=== PATIENT | female | born 1950 | race Caucasian/White ===

== ENCOUNTER → 2020-04-20 14:37 | Outpatient (CLI) | payer MEDICARE, SELFPAY ==
[2020-04-20 19:00] LABS: Coronavirus 19 IgG Antibody Negative (Negative); Coronavirus 19 IgM Antibody Negative (Negative)
[2020-04-21 08:04] LABS: Covid-19 Nasal PCR Sendout P&C NEGATIVE
== END ==
PROVIDERS: PCP Nurse Practitioner Family; Visit Provider Nurse Practitioner Family
DX: Z03.818 Encounter for observation for suspected exposure to other biological agents ruled out (principal)
CPT/HCPCS: 36415; 86328; U0004

== ENCOUNTER → 2022-07-05 07:00 | Outpatient (CLI) | payer SELFPAY ==
--- NOTE | 2022-07-05 07:14 | CT_ITS ---
FINAL REPORT CLINICAL HISTORY: SCREENING, chest pressure FINDINGS: CT CORONARY CALCIUM SCORE W/O TECHNIQUE: Thin-section axial images were obtained through the heart and coronary arteries per CT coronary calcium score protocol. This study was performed with techniques to keep radiation doses as low as reasonably achievable (ALARA). Individualized dose reduction techniques using automated exposure control or adjustment of mA and/or kV according to the patient's size were employed. FINDINGS: On the axial images, there is no calcification identified. This gives a coronary artery calcium score of 0.0 based on the Agatston scale. This coronary artery calcium score places the patient within the 0 percentile based on age and gender. The heart size is normal. There is no pleural or pericardial effusion. Limited evaluation of the lungs reveal mild atelectasis or scarring in the right lung base. IMPRESSION: 0 percentile. Reviewed, Interpreted and Dictated by Roberth Thomas III, MD Transcribed by Bartolome Shen Authenticated and . [facility]
== END ==
PROVIDERS: PCP Nurse Practitioner Family; Visit Provider Physician Assistant
DX: Z13.6 Encounter for screening for cardiovascular disorders (principal)
CPT/HCPCS: 75571

== ENCOUNTER → 2022-07-05 07:04 | Outpatient (CLI) | payer MEDICARE, SELFPAY ==
--- NOTE | 2022-07-05 07:05 | US_ITS ---
FINAL REPORT CLINICAL HISTORY: CLAUDICATION,HTN FINDINGS: ANKLE-BRACHIAL PRESSURE INDICES Pressure indices are as follows: RIGHT LOWER EXTREMITY: Ankle-brachial pressure index: 1.1 Comments: Normal LEFT LOWER EXTREMITY: Ankle-brachial pressure index: 1.1 Comments: Normal CONCLUSION: No evidence of significant obstructive peripheral vascular disease of the lower extremities Reviewed, Interpreted and Dictated by Roberth Thomas III, MD Transcribed by Sadie Del Rosario Authenticated and [facility]
--- NOTE | 2022-07-05 07:05 | CA_ITS ---
APPROVED REPORT EXAM: Comprehensive 2D, Doppler, and color-flow Echocardiogram Manager Cardiology: Gissel Sahu CRT Ht: 5 ft 4 in Wt: 176lbs BSA: 1.85 BP: 130/70 mmHg Indications: Chest Pain, Shortness of Breath, Atrial Fibrillation 2D Dimensions LVOT 1.53 cm (M/F) 1.5-2.5 LA Volume 26.30 mL LA Volume Index 13.80 mL/m2 (M/F) 16-34 M-Mode Dimensions RVDd 3.50 cm (0.9-2.6) LA Diam 2.58 cm (1.9-4.0) LVDd 4.18 cm (3.5-5.7) Ao Diam 3.37 cm (2.0-3.7) LVDs 2.50 cm (3.5-5.7) IVSd 1.18 cm (0.6-1.1) PWd 0.61 cm (0.6-1.1) EF (Teich) 71.30% FS 40.20% EDV (Teich) 77.70 mL TAPSE 2.33 (<1.7) ESV (Teich) 22.30 mL LV Diastology E Decel Time 153.00 (160-240 msec) E/A Ratio 0.87 MED E' 8.90 (< 7 cm/sec) MED A' 9.90 cm/s E'/MED E' Ratio 9.02 (>14) LAT E' 12.30 (<10 cm/sec) LAT A' 14.60 cm/s E/LAT E' Ratio 6.53 (>14) Aortic Valve AI PHT 532.00 ms AO Peak GR. 6.70 mmHg Mitral Valve MV A Velocity 92.00 (40-130 cm/s) E/A Ratio 0.87 MV Decel. Time 153.00 (160-240 ms) Pulmonary Valve PV Peak Velocity 113.00 (50-150 cm/s) Tricuspid Valve TR P. Velocity 230.00 cm/s RAP Estimate 10.00 mmHg RVSP 31.20 mmHg Left Ventricle Left atrium is normal size left ventricle is normal size, estimated ejection fraction 55% with no regional wall motion abnormality, diastolic parameters are within normal range. Right Ventricle Right atrium and right ventricle are normal size and contractility. Aortic Valve Aortic valve is minimally thickened and fibrosed there is no aortic stenosis, there is mild aortic insufficiency. Mitral Valve Mitral valve is grossly normal, there is trace mitral regurgitation. Tricuspid Valve Tricuspid grossly normal, there is trace tricuspid regurgitation, tricuspid regurgitation jet velocity is inadequate for calculation of the right ventricular systolic pressure. Pulmonic Valve Pulmonic valve is poorly visualized. Great Vessels Aortic root is normal size. Inferior vena cava normal size with normal inspiratory collapse. Pericardium No significant pericardial effusion noted. Conclusion 1. Normal left ventricular size preserved left ventricular systolic function, estimated ejection fraction 55% with no regional wall motion abnormality, diastolic parameters of within normal range. 2. Mild aortic, trace mitral and tricuspid regurgitation. 3. No significant pericardial effusion noted. 4. Inferior vena cava normal size with normal inspiratory collapse. Electronically signed by : Kyrie Jesus MD 07/05/2022 19:37:00
--- NOTE | 2022-07-05 07:05 | CA_ITS ---
APPROVED REPORT Exam: Exercise Treadmill Technologist: Ashley Harris Ht: 5 ft 4 in Wt: 176 lbs BSA: 1.85 m2 HR: 62 bpm BP: 165/72 mmHg Indications: Shortness of Breath, Chest pain Medical History Medications: Clonidine,,,,, Aspirin,,,,, Escitalopram,,,,, Montelukast,,,,, MeLOXICAM,,,,, Esomeprazole,,,,, FluTICASONE,,,,, Vitamin D2,,,,, Nitroglycerin,,,,, Stress Test Details Test: Ronny HR Resting HR: 66 bpm Max Heart Rate (APMHR): 148.363785 bpm Max HR Achieved: 151 bpm Target HR (85% APMHR): 125.078036 bpm % of APMHR: 102.03 Recovery HR: 68 bpm BP Resting BP: 165.0/72.0 mmHg Max BP: 198.0/80.0 mmHg Recovery BP: 147.0/76.0 mmHg ECG Resting ECG: Normal sinus rhythm, PAC Clinical Exercise duration: 05:29 min Highest Stage Achieved: Exercise capacity: 7.0 METs Stress ECG Conclusion Patient walked 5:29 into stage II Ronny Protocol. Test stopped due to shortness of air, fatigue. Symptoms: No chest pain. Arrhythmias/Ectopy: Ocassional PAC, rare PVC. ST-T Changes: Approximately 1.[address] depression inferiorly and laterally. Conclusion: EKG changes positive for ischemia without chest pain. Myoview images reported separately. Test Summary REST . . . . . . . Sitting REST . . . . . . . Standing REST 03:55 0.0 0.0 66 . 165/ 72 . . Stage 1 01:00 10.0 1.7 103 . . . . Stage 1 02:00 10.0 1.7 120 . . . . Stage 1 03:00 10.0 1.7 121 . 198/ 80 . . Stage 2 01:00 12.0 2.5 137 . . . . Stage 2 . . . . . . . Myoview Injected Stage 2 02:00 12.0 2.5 144 . . . . Stage 2 02:29 12.0 2.5 149 . . . Stop exercise at 05:29 RECOVERY 01:00 0.0 0.0 112 . . . . RECOVERY 02:00 0.0 0.0 82 . . . . RECOVERY 03:00 0.0 0.0 80 . 180/ 88 . . RECOVERY 04:00 0.0 0.0 72 . 173/ 82 . . RECOVERY 05:00 0.0 0.0 68 . 173/ 82 . . RECOVERY 06:00 0.0 0.0 69 . 147/ 76 . . Electronically signed by : Kyrie Jesus MD 07/05/2022 18:56:31
--- NOTE | 2022-07-05 07:05 | NM_ITS ---
APPROVED REPORT Exam: Nuclear Stress Test Indication: FM HX, C.P., SOB Patient Location: Outpatient Stress Tech: Ashley Harris DC Tech:Nelia AmayaSAMANTHA RT (R)(N)(M) Ht: 5 ft 2 in Wt: 173 lbs Bra Size: C HR: 62 bpm BP: 165/72 mmHg BSA: 1.80 m2 TID: 1.08 BMI: 31.6 History: FM ELIZA, C.P., SOB Procedure: Patient exercised on Ronny protocol 5:30 minutes and sec, resting heart rate 62 bpm, resting blood pressure 165/72 mmHg, with exercise maximum heart rate achived was 149 bpm which is 100 % of the maximum predicted heart rate and blood pressure was 198/80 mmHg. Test was stopped due to SOB. Patient denied any complaint of chest pain. Patient has Adequate exercise capacity, achieved 7.0 METs of workload on treadmill, the blood pressure response to exercise was Adequate. Electrocardiogram Resting electrocardiogram showed sinus rhythm with exercise there is [address] segment depression noted from the baseline EKG. The EKG portion of the exercise Myoview is positive for ischemia. Cardiac Stress and Resting SPECT Images: Cardiac Stress and Resting SPECT images were obtained using technetium 99m Myoview 30.1 mCi stress and 10.59 mCi at rest. Gated SPECT analysis of segmental wall motion and calculation of the ejection fraction also done. Prone images were also obtained. Cardiac stress and rest respectively show uniform myocardial activity without segmental perfusion abnormality, computer derived ejection fraction is 61% with no regional wall motion abnormality, right ventricle is normal size and contractility. Conclusion: 1. The EKG portion of the exercise Myoview is positive for ischemia, patient has adequate exercise capacity achieved 7 METS of workload on treadmill, the blood pressure response to exercise was adequate, there was no exercise-induced chest discomfort. 2. No scintigraphic evidence of reversible ischemia seen, computer derived ejection fraction is 61% with no regional wall motion abnormality, right ventricle is normal size and contractility. Electronically signed by : Kyrie Jesus MD 07/05/2022 19:11:08
== END ==
PROVIDERS: PCP Nurse Practitioner Family; Visit Provider Physician Assistant
DX: I48.0 Paroxysmal atrial fibrillation (principal); R06.00 Dyspnea, unspecified; R07.9 Chest pain, unspecified; I73.9 Peripheral vascular disease, unspecified
CPT/HCPCS: 78452; 93017; 93306; 93923; A9502

== ENCOUNTER 2023-07-05 09:46 | Outpatient (POV) | payer MEDICARE, SELFPAY ==
[2023-07-05 10:52] VITALS: BP 149/82; PULSE 68; RESP 18; O2SAT 97; BMI 28.3
--- NOTE | 2023-07-05 11:31 | EXP.PAIN.OV ---
HPI Data of Consult Patient: new to practice Consult date: 07/05/23 Requesting Physician: Aisha Gupta APRN Primary Care Provider: Kerri Gonzalez APRN Consult Narrative Reason for consult: Low back pain, bilateral hip pain, bilateral knee pain History of present illness: Ms. Joshi is a 73 year old female who presents today as a new patient. She is a referral from [facility]. Today she rates her pain an 8 out of 10. Patient states her pain is all in her low back and bilateral hips as well as bilateral knee pain. She does describe this as a aching, throbbing sensation that is worse with certain positions such as prolonged sitting or standing. Patient states that it is aggravated when going up stairs or using her weedeater or lawnmower. Patient does state this has been going on for years on again off again. She states that the pain does interfere with her ability perform activities of daily living such as cooking and cleaning. Patient does also state her knee pain is chronic and that she does get intra-articular knee injections and recently did do the gel injections. Patient states she has tried [id number] Tylenol and ibuprofen along with heat and ice and topicals with minimal relief. She states that she goes to the chiropractor on a regular basis that does help some however continues to have the pain. Patient denies any previous trauma or injury that initially led to her symptoms. She denies any surgery or injection history in the past other than her knees. Patient is interested in any help we may be able to provide. Patient does use meloxicam. She is not on any scheduled medications. Her Octavio has been reviewed and is appropriate. CC: Aisha Gupta APRN [facility] Disclaimer: The information contained in this section may have been updated after the patient was seen, as this information can be updated by other users. Medical History (Updated 07/05/23 @ 11:35 by Aisha Gupta APRN) Claudication Dyspnea Chest pain PAF (paroxysmal atrial fibrillation) Family History Mother Diabetes CHF (congestive heart failure) Father Cancer Social History (Updated 07/05/23 @ 10:54 by Flakita May RN) Smoking Status: Never smoker alcohol intake: never substance use type: denies use current occupational status: retired Travel in the last 8 weeks: None Review of Systems Review of Systems Review of systems:: pertinent systems reviewed and negative unless documented below Review of systems (narrative): Review of Systems: General: No recent weight changes, no fever, no sleep disturbances Respiratory: No cough, no shortness of air, no recurring pulmonary infections Cardiovascular/peripheral vascular: No chest pain, no palpitations, no edema, no shortness of breath Gastrointestinal: No new onset incontinence, normal bowel movements reported Genitourinary: No new onset incontinence Musculoskeletal: Low back pain, bilateral hip pain, bilateral knee pain Psychiatric: [Normal mood/affect] Neurological: [Denies weakness in extremities], [denies balance issues] Meds Home Medications and Allergies Home Medications Medication Instructions Recorded Confirmed Type clonidine HCl 0.1 mg tablet 0.1 mg PO BID 06/23/22 07/05/23 History ergocalciferol (vitamin D2) 1,250 1,250 mcg PO WEEKLY 06/23/22 07/05/23 History mcg (50,000 unit) capsule escitalopram oxalate 20 mg tablet 20 mg PO DAILY 06/23/22 07/05/23 History esomeprazole magnesium 40 mg 40 mg PO DAILY 06/23/22 07/05/23 History capsule,delayed release meloxicam 15 mg tablet 15 mg PO DAILY 06/23/22 07/05/23 History nitroglycerin 0.4 mg sublingual 0.4 mg sublingual Q5-15M PRN Chest 06/23/22 07/05/23 History tablet Pain New Prescriptions to Start Prescriptions: Allergies Allergy/AdvReac Type Severity Reaction Status Date / Time codeine AdvReac Verified 06/23/22 09:34 iodine AdvReac Verified 06/23/22 09:34 Objective Vital signs: Pulse Resp BP Pulse Ox O2 Del Method 68 18 149/82 H 97 Room Air 07/05/23 10:52 07/05/23 10:52 07/05/23 10:52 07/05/23 10:52 07/05/23 10:52 Narrative: Physical Exam: General: Alert and oriented x3, no acute distress, pleasant and cooperative Lungs: Respirations even and unlabored, symmetrical chest expansion Eyes: PERRL Musculoskeletal: Flexion and extension of lumbar [spine] somewhat guarded secondary to pain, [antalgic gait noted] point tenderness along bilateral SIs with positive bilateral Sherman's, Jah's, Gaenslen's, compression and distraction exam; point tenderness along right greater trochanteric bursitis with mild left tenderness Neurological: Speech clear, no gross sensory deficit Assessment and Plan *Assessment and plan (1) Bilateral sacroiliitis: Status: Acute Category: Medical Code(s): M46.1 - Sacroiliitis, not elsewhere classified (2) Greater trochanteric bursitis: Status: Acute Qualifiers: Laterality: right Qualified Code(s): M70.61 - Trochanteric bursitis, right hip Category: Medical Code(s): M70.60 - Trochanteric bursitis, unspecified hip (3) Low back pain: Status: Acute Qualifiers: Chronicity: chronic Back pain laterality: bilateral Sciatica presence: with sciatica Sciatica laterality: bilateral sciatica Qualified Code(s): M54.42 - Lumbago with sciatica, left side; M54.41 - Lumbago with sciatica, right side; G89.29 - Other chronic pain Category: Medical Code(s): M54.50 - Low back pain, unspecified (4) Bilateral knee pain: Status: Acute Qualifiers: Chronicity: chronic Qualified Code(s): M25.561 - Pain in right knee; M25.562 - Pain in left knee; G89.29 - Other chronic pain Category: Medical Code(s): M25.561 - Pain in right knee; M25.562 - Pain in left knee Plan Patient is experiencing worsening pain in her low back and bilateral hips with limited range of motion of her lumbar spine and point tenderness of her bilateral SIs. Patient had a positive Sherman's, Jah's, Gaenslen's, compression and distraction exam as well as tenderness along her greater trochanteric bursa's. I have discussed with patient in future she may benefit from the bursa injections however due to her worse pain in and around her SI joints that she would benefit from the bilateral SI injections. Risk and benefits were discussed with the patient and she would like to proceed forward with this plan of care. I have also discussed at length with the patient regarding her knee pain and we will discuss this at future visits. Patient will be scheduled for bilateral SI injections under fluoroscopy. Patient has tried and failed conservative treatment such as oral medications, heat and ice, topicals, chiropractor therapy and at home stretching exercise for longer than 6 weeks. Patient has been instructed to contact the clinic with any concerns before the next appointment. Dr. Izquierdo has reviewed this note and agrees with this plan of care. This note was dictated using voice recognition software and make contain errors or omissions.
== END 2023-07-05 23:59 ==
LOC: SC.PAIN 09:47
PROVIDERS: PCP Nurse Practitioner Family; Visit Provider Nurse Practitioner Family
DX: M46.1 Sacroiliitis, not elsewhere classified (principal); M70.61 Trochanteric bursitis, right hip; M54.42 Lumbago with sciatica, left side; M54.41 Lumbago with sciatica, right side; G89.29 Other chronic pain; M25.561 Pain in right knee; M25.562 Pain in left knee
CPT/HCPCS: 99202; G0463

== ENCOUNTER 2023-07-28 08:46 | Day surgery (SDC) | payer MEDICARE, SELFPAY ==
[2023-07-28 09:00] VITALS: BP 146/71; PULSE 73; RESP 16; TEMP 36.2; O2SAT 98; BMI 29.0
[2023-07-28 09:07] VITALS: BP 133/65; PULSE 76; RESP 18; O2SAT 98
[2023-07-28] MEDS: BUPIVACAINE 0.25% 10ML INJ 25 MG IJ (09:08)
[2023-07-28] MEDS: LIDOCAINE 1% 5ML PF VIAL 5 ML (09:08)
[2023-07-28] MEDS: methylPREDNISolone ACETATE 80MG/ML VIAL 80 MG (09:08)
[2023-07-28 09:10] VITALS: BP 133/65; PULSE 71; RESP 18; O2SAT 98
[2023-07-28 09:14] VITALS: BP 134/68; PULSE 67; RESP 16; O2SAT 98
--- NOTE | 2023-07-28 09:15 | P.PCN_ITS ---
Procedure Date: 07/28/23 Time: 09:10 Anesthesiologist:: Mick Hurst CRNA Complications:: None Pre-procedure Diagnosis:: Bilateral sacroiliitis Post-procedure Diagnosis:: Same Indications for Procedure:: Patient is a very pleasant 73-year-old female comes our clinic today for bilateral sacroiliac joint injection. Patient reports low lumbar back pain bilaterally off the midline. Patient also reports difficulty transitioning from sitting to standing. Difficulty with ambulation due to the low lumbar back pain. She rates her pain 8/10. Procedure Details:: Procedure: Bilateral sacroiliac joint injections under fluoroscopy Informed consent was obtained and the risks and benefits of the procedure were explained to the patient.~ The patient was taken to the procedure room and noninvasive monitors were placed including a noninvasive blood pressure cuff and pulse oximeter.~ The patient was placed prone on the procedure table. Both hips were cleansed using Betadine as a cleansing solution. C-arm fluoroscopy was used to view the right sacroiliac joint.~ The skin and subcutaneous tissues were anesthetized using lidocaine 1.5% and a 25-gauge needle.~ After this, a 22-gauge spinal needle was inserted under fluoroscopic guidance into the inferior aspect of the right sacroiliac joint.~ Omnipaque dye was injected and good spread was seen throughout the joint.~ After this, approximately 5 mL of bupivacaine, 0.25% and Depo-Medrol, 40 mg was incrementally injected into the right sacroiliac joint. We then moved to the left sacroiliac joint.~ The skin and subcutaneous tissues were anesthetized using lidocaine 1.5% and a 25-gauge needle.~ After this, a 22- gauge spinal needle was inserted under fluoroscopic guidance into the inferior aspect of the left sacroiliac joint.~ Omnipaque dye was injected and good spread was seen throughout the joint. After this, approximately 5 mL of bupivacaine, 0.25% and Depo-Medrol, 40 mg was incrementally injected into the left sacroiliac joint.~ The patient tolerated the procedure well with no complications. The patient was observed in the Pain Clinic and then was discharged home neurologically intact. Plan and Disposition:: Patient was discharged without incident.
== END 2023-07-28 09:14 | disposition home or self-care (01) ==
PROVIDERS: PCP Nurse Practitioner Family; Visit Provider Nurse Anesthetist, Certified Registered
DX: M46.1 Sacroiliitis, not elsewhere classified (principal)
CPT/HCPCS: 27096; 77002; G0260; J1010

== ENCOUNTER 2023-08-09 11:04 | Outpatient (POV) | payer MEDICARE, SELFPAY ==
[2023-08-09 11:17] VITALS: BP 125/76; PULSE 71; RESP 18; O2SAT 94; BMI 29.0
--- NOTE | 2023-08-09 11:38 | A.OFFVIS_ITS ---
[facility] Pain Management SOAP Note Subjective:: Patient is a pleasant 73-year-old female who presents today for follow-up of bilateral SI injections on 07/28/2023. Today she rates her pain a 2 out of 10 in her low back and a 5 out of 10 along her right hip. Patient denies any new trauma or injury. Patient does state that she had this injection on a Monday and broke to use [place] on Monday and proceeded to walk all day Monday. Patient states that she did at that point have 100% relief for about a week. Patient states after that that she did do a lot more work around the garden including riding on a 4 ramirez and that she is still getting about 80% relief. She states that this has been significant for helping her sleep better and overall better pain improvement. She does state that she is still having some pain along her right hip and is tender to touch. At her last visit we did discuss with her that she may benefit from bursa injections. Patient does state today that she would like to try to proceed forward with this. Her Octavio has been reviewed and is appropriate. Review of Systems: General: No recent weight changes, no fever, no sleep disturbances Respiratory: No cough, no shortness of air, no recurring pulmonary infections Cardiovascular/peripheral vascular: No chest pain, no palpitations, no edema, no shortness of breath Gastrointestinal: No new onset incontinence, normal bowel movements reported Genitourinary: No new onset incontinence Musculoskeletal: Right hip pain Psychiatric: [Normal mood/affect] Neurological: [Denies weakness in extremities], [denies balance issues] Objective:: Physical Exam: General: Alert and oriented x3, no acute distress, pleasant and cooperative Lungs: Respirations even and unlabored, symmetrical chest expansion Eyes: PERRL Musculoskeletal: Flexion and extension of right hip somewhat guarded secondary to pain, [antalgic gait noted] point tenderness along right greater trochanteric bursa Neurological: Speech clear, no gross sensory deficit Assessment:: Low back pain, bilateral sacroiliitis, greater trochanteric bursitis right- sided, right hip pain Plan:: Patient has had significant improvement following her SI injections and does not require any additional injection at this location. Patient did have point tenderness along her right greater trochanteric bursa along with limited range of motion of her hip today. I have discussed the risk and benefits of the bursa injection and she would like to proceed forward with this plan of care. Patient has tried and failed conservative therapies. We will schedule the patient for a right bursa injection under fluoroscopy. Patient has been instructed to contact the clinic with any concerns before the next appointment. Dr. Izquierdo has reviewed this note and agrees with this plan of care. This note was dictated using voice recognition software and make contain errors or omissions. [facility] Disclaimer: The information contained in this section may have been updated after the patient was seen, as this information can be updated by other users. Medical History Claudication Dyspnea Chest pain PAF (paroxysmal atrial fibrillation) Family History Mother Diabetes CHF (congestive heart failure) Father Cancer Social History Smoking Status: Never smoker alcohol intake: never substance use type: denies use current occupational status: employed Travel in the last 8 weeks: None
== END 2023-08-09 23:59 ==
LOC: SC.PAIN 11:05
PROVIDERS: PCP Nurse Practitioner Family; Visit Provider Nurse Practitioner Family
DX: M54.50 Low back pain, unspecified (principal); M46.1 Sacroiliitis, not elsewhere classified; M70.61 Trochanteric bursitis, right hip; M25.551 Pain in right hip
CPT/HCPCS: 99212; G0463

== ENCOUNTER 2023-08-29 09:58 | Day surgery (SDC) | payer MEDICARE, SELFPAY ==
[2023-08-29 10:22] VITALS: BP 135/69; PULSE 67; RESP 16; TEMP 36.3; O2SAT 97; BMI 28.3
[2023-08-29] MEDS: LIDOCAINE 1% 5ML PF VIAL 5 ML (10:59)
[2023-08-29] MEDS: methylPREDNISolone ACETATE 80MG/ML VIAL 80 MG (10:59)
[2023-08-29 11:00] VITALS: BP 130/57; PULSE 61; RESP 18; O2SAT 98
[2023-08-29] MEDS: BUPIVACAINE 0.25% 10ML INJ 25 MG IJ (11:00)
[2023-08-29 11:02] VITALS: BP 130/57; PULSE 61; RESP 18; O2SAT 97
--- NOTE | 2023-08-29 11:04 | P.PCN_ITS ---
Procedure Date: 08/29/23 Time: 11:00 Anesthesiologist:: Mick Hurst CRNA Complications:: None Pre-procedure Diagnosis:: Right trochanteric bursitis. Post-procedure Diagnosis:: Same. Indications for Procedure:: Patient is a pleasant 73-year-old female comes our clinic today for right great er trochanteric bursa injection. She reports extreme point tenderness over the right lateral hip. She is able to pinpoint with her finger the area of pain. Under fluoroscopy this proves to be the trochanteric bursa. She rates her pain 8/10. Procedure Details:: Procedure: Right trochanteric bursa injection under fluoroscopy We then moved to the right trochanteric bursa.~ C-arm fluoroscopy was used to view the left greater trochanter.~ The skin and subcutaneous tissues overlying the right greater trochanter were anesthetized using lidocaine, 1.5% and a 25- gauge needle.~ After this, a 22-gauge spinal needle was inserted and advanced until it contacted the right greater trochanter.~ Dye was injected and good spread was seen throughout the right trochanteric bursa. After this, approximately 5 mL of bupivacaine, 0.25% and Depo-Medrol, 40 mg was incrementally injected into the right right trochanteric bursa.~ The patient tolerated the procedure well with no complications. Plan and Disposition:: Patient was discharged without incident.
[2023-08-29 11:06] VITALS: BP 130/70; PULSE 56; RESP 18; O2SAT 98
== END 2023-08-29 11:06 | disposition home or self-care (01) ==
PROVIDERS: PCP Nurse Practitioner Family; Visit Provider Nurse Anesthetist, Certified Registered
DX: M70.71 Other bursitis of hip, right hip (principal)
CPT/HCPCS: 20610; 77002; J1010

== ENCOUNTER 2023-09-13 11:26 | Outpatient (POV) | payer MEDICARE, SELFPAY ==
--- NOTE | 2023-09-13 11:29 | EXP.PAIN.SOA ---
[facility] Pain Management SOAP Note Subjective:: Patient is a pleasant 73-year-old female who presents today for follow-up of right bursa injection on 08/29/2023. Today she rates her pain a 9 out of 10. Patient denies any new trauma or injury. She does state that she has had 100% improvement following her bursa injection. She states that pain is completely resolved and she feels much better. Today she states a lot of her pain is all related to her entire right lower extremity. She describes this as a burning, stinging sensation and almost like [id number]. She states that initially it started more in her foot that is progressively gone up her entire extremity. She states that she often feels like she has a lot of weakness in this extremity and frequently she will stumble. She states that the leg will just randomly give out causing her to fall. Patient is interested in any help we may be able to provide with this. Patient does state that she even went to her chiropractor and had an adjustment to see if it would help with the overall right leg symptoms however it made no change. Patient is scheduled for an MRI later this afternoon at 230. Her Octavio has been reviewed and is appropriate. Review of Systems: General: No recent weight changes, no fever, no sleep disturbances Respiratory: No cough, no shortness of air, no recurring pulmonary infections Cardiovascular/peripheral vascular: No chest pain, no palpitations, no edema, no shortness of breath Gastrointestinal: No new onset incontinence, normal bowel movements reported Genitourinary: No new onset incontinence Musculoskeletal: Low back pain, right leg pain Psychiatric: [Normal mood/affect] Neurological: [Denies weakness in extremities], [denies balance issues] Objective:: Physical Exam: General: Alert and oriented x3, no acute distress, pleasant and cooperative Lungs: Respirations even and unlabored, symmetrical chest expansion Eyes: PERRL Musculoskeletal: Flexion and extension of lumbar [spine] somewhat guarded secondary to pain, [antalgic gait noted] positive right leg raise with decreased sensation to light touch and decreased reflexes Neurological: Speech clear, no gross sensory deficit Assessment:: Low back pain, greater trochanteric bursitis, bilateral sacroiliitis, bilateral knee pain, right leg radiculopathy symptoms, numbness and tingling Plan:: Patient is experiencing worsening pain throughout her right leg with burning and tingling. Patient did have limited range of motion of her lumbar spine with decreased sensation and decreased reflexes along with a positive right leg raise. I discussed with the patient that she may benefit from a right transforaminal epidural steroid injection. Risk and benefits were discussed with patient and she would like to proceed forward with this plan of care. Patient is not on any blood thinners. Patient has tried and failed conservative therapy including continued at home exercising and stretching between injections as well as chiropractor therapy with minimal relief. We will schedule the patient for a right transforaminal epidural steroid injection L4-L5 and L5-S1 under fluoroscopy. Patient has been instructed to contact the clinic with any concerns before the next appointment. Dr. Izquierdo has reviewed this note and agrees with this plan of care. This note was dictated using voice recognition software and make contain errors or omissions. [facility] Disclaimer: The information contained in this section may have been updated after the patient was seen, as this information can be updated by other users. Medical History Claudication Dyspnea Chest pain PAF (paroxysmal atrial fibrillation) Family History Mother Diabetes CHF (congestive heart failure) Father Cancer Social History Smoking Status: Never smoker alcohol intake: never substance use type: denies use current occupational status: other Travel in the last 8 weeks: None
[2023-09-13 11:42] VITALS: BP 123/65; PULSE 74; RESP 16; O2SAT 99; BMI 28.3
== END 2023-09-13 23:59 | disposition home or self-care (01) ==
LOC: SC.PAIN 11:27
PROVIDERS: PCP Nurse Practitioner Family; Visit Provider Nurse Practitioner Family
DX: M54.50 Low back pain, unspecified (principal); M46.1 Sacroiliitis, not elsewhere classified; M25.561 Pain in right knee; M25.562 Pain in left knee; R20.0 Anesthesia of skin
CPT/HCPCS: 99212; G0463

== ENCOUNTER 2023-09-13 14:26 | Outpatient (CLI) | payer MEDICARE, SELFPAY ==
--- NOTE | 2023-09-13 14:30 | MR_ITS ---
FINAL REPORT CLINICAL HISTORY: CHRONIC LOW BACK PAIN right side numbness/tingling x 1 month FINDINGS: Multiplanar MR imaging of the lumbar spine was performed without contrast. On the sagittal T2-weighted images, there is abnormal decreased signal throughout the lumbar discs. There is moderate loss of height from L1-2 through L4-5. The vertebrae are of normal height. The vertebral alignment is normal. L1-2: Mild diffuse disc bulge is present. There is moderate bilateral facet hypertrophy with moderate bilateral neural foraminal narrowing. L2-3: Mild diffuse disc bulge and endplate hypertrophy are present. There is moderate bilateral neural foraminal narrowing. L3-4: Moderate diffuse disc bulge and endplate hypertrophy are present. There is moderate to high-grade bilateral neural foraminal narrowing, left greater than right. There is bilateral facet hypertrophy. L4-5: Moderate diffuse disc bulge is present. There is a right paracentral disc protrusion with mild compromise of the right lateral recess. There is moderate to high-grade left neural foraminal narrowing. L5-S1: Moderate diffuse disc bulge is present. There is endplate hypertrophy, eccentric to the left with moderate to high-grade left neural foraminal narrowing. IMPRESSION: Right paracentral disc protrusion at L4-5 with mild compromise of the right lateral recess. Neural foraminal compromise, most evident on the left at L4-5 and L5-S1. Reviewed, Interpreted and Dictated by Hua Tran MD Transcribed by Mariza Tsang Authenticated and [facility]
== END 2023-09-13 23:59 | disposition home or self-care (01) ==
LOC: RAD 14:27
PROVIDERS: PCP Nurse Practitioner Family; Visit Provider Nurse Practitioner Family
DX: M54.50 Low back pain, unspecified (principal); M70.60 Trochanteric bursitis, unspecified hip; M46.1 Sacroiliitis, not elsewhere classified; M25.561 Pain in right knee; M25.562 Pain in left knee; R20.0 Anesthesia of skin
CPT/HCPCS: 72148; 99212; G0463

== ENCOUNTER 2023-10-03 11:24 | Day surgery (SDC) | payer MEDICARE, SELFPAY ==
[2023-10-03 11:37] VITALS: BP 113/64; PULSE 70; RESP 16; O2SAT 96; BMI 28.3
[2023-10-03 11:47] VITALS: BP 131/62; PULSE 64; RESP 18; O2SAT 98
[2023-10-03] MEDS: LIDOCAINE 1% 5ML PF VIAL 5 ML (11:47)
[2023-10-03 11:48] VITALS: BP 131/62; PULSE 67; RESP 18; O2SAT 99
--- NOTE | 2023-10-03 11:56 | P.PCN_ITS ---
Procedure Date: 10/03/23 Time: 11:30 Anesthesiologist:: Mick Hurst CRNA Complications:: None Pre-procedure Diagnosis:: Degenerative disc lumbar spine multilevel. Lumbar radiculopathy. Lumbar disc bulge multilevel L3-4, L4-5, L5-S1. Post-procedure Diagnosis:: Same. Indications for Procedure:: Patient is a pleasant 73-year-old female comes our clinic today for right L4-5, L5-S1 transforaminal epidural steroid injection. Patient reports 6 weeks of significant improvement terms of her overall low lumbar back symptoms as well as bilateral hip and leg radicular symptoms with previous intralaminar epidural steroid injection. Today she reports specific right low lumbar back pain as w ell as right hip and leg radicular symptoms to the foot. She rates her pain 10/10. She describes the pain as constant, dull, sharp, stabbing. Procedure Details:: Details of the procedure explained to the patient. The patient was taken to procedure room placed in the prone position. The area over the lumbar spine was cleansed using chlorhexidine as a cleansing solution. Using fluoroscopy guidance markers were placed over the right border of the L4-5 and L5-S1 vertebral body. At each marker the skin and subcutaneous tissue was anesthetized using 1% lidocaine and a 25-gauge needle. At this time using fluoroscopy guidance 3 and half inch 22-gauge spinal needle was used to access the upper one third of the right L4-5 and L5-S1 foramen. Using fluoroscopy guidance in the lateral position needle position was confirmed using 0.5 mL of contrast dye. Good spread was noted in the epidural space at each level. After negative aspiration 2 mL of 1% lidocaine and 40 mg of Depo-Medrol was injected at each level. Patient tolerated procedure without difficulty. There are no complications. Plan and Disposition:: Patient was discharged without incident.
[2023-10-03 12:02] VITALS: BP 110/59; PULSE 58; RESP 18; O2SAT 99
== END 2023-10-03 12:03 | disposition home or self-care (01) ==
PROVIDERS: PCP Nurse Practitioner Family; Visit Provider Nurse Anesthetist, Certified Registered
DX: M51.16 Intervertebral disc disorders with radiculopathy, lumbar region (principal); M51.26 Other intervertebral disc displacement, lumbar region
CPT/HCPCS: 64483; 64484; J1010

== ENCOUNTER 2023-10-19 11:22 | Outpatient (POV) | payer MEDICARE, SELFPAY ==
[2023-10-19 11:29] VITALS: BP 127/61; PULSE 64; RESP 16; O2SAT 97; BMI 28.3
--- NOTE | 2023-10-19 11:44 | EXP.PAIN.SOA ---
[facility] Disclaimer: The information contained in this section may have been updated after the patient was seen, as this information can be updated by other users. Medical History (Updated 10/19/23 @ 11:47 by Aisha Gupta APRN) Claudication Dyspnea Chest pain PAF (paroxysmal atrial fibrillation) Family History Mother Diabetes CHF (congestive heart failure) Father Cancer Social History Smoking Status: Never smoker alcohol intake: never substance use type: denies use current occupational status: other Travel in the last 8 weeks: None PM Subjective & Objective Subjective Subjective:: Patient is a pleasant 73-year-old female who presents today for follow-up of right transforaminal epidural steroid injection L4-L5 and L5-S1 under fluoroscopy on 10/03/2023. Today she rates her pain a 7 out of 10. Patient states that she has not had any new injury or trauma. She does state that she had significant relief in her back from this injection of at least 50% however it really did not seem to do much for her right leg symptoms. She states initially the numbing medication did seem like it helped some however it never got any better and she is continuing to have the same issues. Patient does state that she is starting to see a new chiropractor who thinks that he can do some additional options that may make a difference. She states that she is scheduled for the first follow-up with him this coming Monday. Patient denies continue to use her Voltaren for her knee and takes Mobic daily for arthritis. Patient does states she will occasionally use [id number] Aleve that it does seem to help with the drawing up sensations with the back of her leg. She also states that she has gotten roll-on nerve V cream and it seems to help some. Patient does have a consult with neurosurgery coming up in October on the . Her Octavio has been reviewed and is appropriate. Review of Systems: General: No recent weight changes, no fever, no sleep disturbances Respiratory: No cough, no shortness of air, no recurring pulmonary infections Cardiovascular/peripheral vascular: No chest pain, no palpitations, no edema, no shortness of breath Gastrointestinal: No new onset incontinence, normal bowel movements reported Genitourinary: No new onset incontinence Musculoskeletal: Right leg numbness tingling Psychiatric: [Normal mood/affect] Neurological: [Denies weakness in extremities], [denies balance issues] Pain at rest (0-10 scale): 7 Objective Objective:: Physical Exam: General: Alert and oriented x3, no acute distress, pleasant and cooperative Lungs: Respirations even and unlabored, symmetrical chest expansion Eyes: PERRL Musculoskeletal: Flexion and extension of lumbar [spine] somewhat guarded secondary to pain, [antalgic gait noted] Neurological: Speech clear, no gross sensory deficit Has patient had previous pain injection?: Yes Percent improvement in pain since last injection: 50 Conservative treatment options previously tried: NSAIDS Length of treatment: More than 6 weeks, Home exercise plan Length of treatment: More than 6 weeks, Chiropractor Length of treatment: 1 week and Prescription medications Length of treatment: More than 6 weeks Meds Home Medications and Allergies Home Medications Medication Instructions Recorded Confirmed Type clonidine HCl 0.1 mg tablet 0.1 mg PO BID 06/23/22 10/19/23 History ergocalciferol (vitamin D2) 1,250 1,250 mcg PO WEEKLY 06/23/22 10/19/23 History mcg (50,000 unit) capsule escitalopram oxalate 20 mg tablet 20 mg PO DAILY 06/23/22 10/19/23 History esomeprazole magnesium 40 mg 40 mg PO DAILY 06/23/22 10/19/23 History capsule,delayed release meloxicam 15 mg tablet 15 mg PO DAILY 06/23/22 10/19/23 History nitroglycerin 0.4 mg sublingual 0.4 mg sublingual Q5-15M PRN Chest 06/23/22 10/19/23 History tablet Pain New Prescriptions to Start Prescriptions: Allergies Allergy/AdvReac Type Severity Reaction Status Date / Time codeine AdvReac Verified 08/29/23 10:23 iodine AdvReac Verified 08/29/23 10:23 Assessment and Plan *Assessment and plan (1) Low back pain: Status: Acute Qualifiers: Chronicity: chronic Back pain laterality: bilateral Sciatica presence: with sciatica Sciatica laterality: bilateral sciatica Qualified Code(s): M54.42 - Lumbago with sciatica, left side; M54.41 - Lumbago with sciatica, right side; G89.29 - Other chronic pain Category: Medical Code(s): M54.50 - Low back pain, unspecified (2) Degenerative disc disease, lumbar: Status: Acute Category: Medical Code(s): M51.36 - Other intervertebral disc degeneration, lumbar region (3) Lumbar spinal stenosis: Status: Acute Qualifiers: Neurogenic claudication status: with neurogenic claudication Qualified Code(s): M48.062 - Spinal stenosis, lumbar region with neurogenic claudication Category: Medical Code(s): M48.061 - Spinal stenosis, lumbar region without neurogenic claudication Plan Patient continues to experience significant pain throughout her right leg. Patient did have significant improvement of the overall back pain following her injection however did not make any additional change to her leg issues. I did discuss with patient in future we may try a straightforward lumbar epidural at the L4-L5 level or that she may benefit from trying pregabalin 50 mg at night. We will give her time to see how the chiropractor visits go. Patient will return to clinic in 1 month for reevaluation of symptoms and plan of care. Patient has been instructed to contact the clinic with any concerns before the next appointment. Dr. Izquierdo has reviewed this note and agrees with this plan of care. This note was dictated using voice recognition software and make contain errors or omissions.
== END 2023-10-19 23:59 | disposition home or self-care (01) ==
LOC: SC.PAIN 11:23
PROVIDERS: PCP Nurse Practitioner Family; Visit Provider Nurse Practitioner Family
DX: G89.29 Other chronic pain; M51.36 Other intervertebral disc degeneration, lumbar region; M48.062 Spinal stenosis, lumbar region with neurogenic claudication
CPT/HCPCS: 99212; G0463

== ENCOUNTER 2023-11-16 10:38 | Outpatient (POV) | payer MEDICARE, SELFPAY ==
[2023-11-16 10:48] VITALS: BP 128/78; PULSE 65; RESP 18; TEMP 36.8; O2SAT 99; BMI 29.2
--- NOTE | 2023-11-16 12:24 | EXP.PAIN.SOA ---
[facility] Disclaimer: The information contained in this section may have been updated after the patient was seen, as this information can be updated by other users. Medical History Claudication Dyspnea Chest pain PAF (paroxysmal atrial fibrillation) Family History Mother Diabetes CHF (congestive heart failure) Father Cancer Social History Smoking Status: Never smoker alcohol intake: never substance use type: denies use current occupational status: other Travel in the last 8 weeks: None PM Subjective & Objective Subjective Subjective:: Patient is a pleasant 73-year-old female who presents today for follow-up. Today she rates her pain a 4 out of 10 however states the pain will get very easily a 6 out of 10 with any increased activity. Patient states the pain is all in her low back and hips. Patient does state that she ended up going to 8 visits with a chiropractor and then has now stopped going because it was not making any additional improvement. From our last visit she does also state that she has been back to see Dr. Allison who was saying that she still could qualify for surgery however it was going to be an extensive surgery with rods and screws placed. Patient does state that she does not want to proceed forward with that option as it is extensive and that he even told her there was no guarantee it would help her symptoms. Patient is scheduled for a nerve conduction study on November 20. Patient does state the pain today is a aching, throbbing sensation that does have even drawing sensations. She does state the pain interferes with her ability perform activities of daily living such as cooking and cleaning. Patient does state in the past one of her injections we did back in July really significantly helped this pain and she is interested in repeating this. Patient has tried and failed conservative therapy including oral medication, heat and ice, topicals, chiropractor therapy and continued at home exercising and stretching for longer than 12 weeks. Her Octavio has been reviewed and is appropriate. Review of Systems: General: No recent weight changes, no fever, no sleep disturbances Respiratory: No cough, no shortness of air, no recurring pulmonary infections Cardiovascular/peripheral vascular: No chest pain, no palpitations, no edema, no shortness of breath Gastrointestinal: No new onset incontinence, normal bowel movements reported Genitourinary: No new onset incontinence Musculoskeletal: Low back pain Psychiatric: [Normal mood/affect] Neurological: [Denies weakness in extremities], [denies balance issues] Pain at rest (0-10 scale): 6 Objective Objective:: Physical Exam: General: Alert and oriented x3, no acute distress, pleasant and cooperative Lungs: Respirations even and unlabored, symmetrical chest expansion Eyes: PERRL Musculoskeletal: Flexion and extension of lumbar [spine] somewhat guarded secondary to pain, [antalgic gait noted] point tenderness along bilateral SIs with positive bilateral Sherman's, Jah's, Gaenslen's, compression and distraction exam Neurological: Speech clear, no gross sensory deficit Has patient had previous pain injection?: No Conservative treatment options previously tried: Home exercise plan Length of treatment: Longer than 12 weeks, Chiropractor Length of treatment: Longer than 8 weeks and Prescription medications Length of treatment: Longer than 12 weeks Meds Home Medications and Allergies Home Medications ?Medication ?Instructions ?Recorded ?Confirmed ?Type clonidine HCl 0.1 mg tablet 0.1 mg PO BID 06/23/22 10/19/23 History ergocalciferol (vitamin D2) 1,250 1,250 mcg PO WEEKLY 06/23/22 10/19/23 History mcg (50,000 unit) capsule escitalopram oxalate 20 mg tablet 20 mg PO DAILY 06/23/22 10/19/23 History esomeprazole magnesium 40 mg 40 mg PO DAILY 06/23/22 10/19/23 History capsule,delayed release meloxicam 15 mg tablet 15 mg PO DAILY 06/23/22 10/19/23 History nitroglycerin 0.4 mg sublingual 0.4 mg sublingual Q5-15M PRN Chest 06/23/22 10/19/23 History tablet Pain New Prescriptions to Start Prescriptions: Allergies Allergy/AdvReac Type Severity Reaction Status Date / Time codeine AdvReac Verified 08/29/23 10:23 iodine AdvReac Verified 08/29/23 10:23 Assessment and Plan *Assessment and plan (1) Bilateral sacroiliitis: Status: Acute Category: Medical Code(s): M46.1 - Sacroiliitis, not elsewhere classified Plan Patient is experiencing worsening pain in her low back and hips with point tenderness along her bilateral SIs and a positive bilateral Sherman's, Jah's, Gaenslen's, compression and distraction exam. Patient did previously have SI injections back on July 27 that did provide more than 80% relief lasting up until the last couple of weeks. I have discussed the risk and benefits of repeat injection and she would like to proceed forward with this plan of care. Patient does want to try conservative treatment before proceeding forward with surgical intervention. I have also discussed with the patient in future she may be a beneficial candidate of our trials. We will follow-up with this at future visits. Patient did also mention a cramping sensation that she will have night in her lower legs. I will send in a 14-day supply of ropinirole 0.25 mg at night. Patient will be scheduled for bilateral SI injections under fluoroscopy. Patient has tried and failed conservative therapy including continued at home stretching and exercise for longer than 12 weeks and 8 weeks of chiropractor therapy Patient has been instructed to contact the clinic with any concerns before the next appointment. Dr. Izquierdo has reviewed this note and agrees with this plan of care. This note was dictated using voice recognition software and make contain errors or omissions. All injections are used with Lidocaine or Bupivacaine and Depo Medrol.
== END 2023-11-16 23:59 | disposition home or self-care (01) ==
PROVIDERS: PCP Nurse Practitioner Family; Visit Provider Nurse Practitioner Family
DX: M46.1 Sacroiliitis, not elsewhere classified (principal)
CPT/HCPCS: 99212; G0463

== ENCOUNTER 2023-11-28 10:14 | Day surgery (SDC) | payer MEDICARE, SELFPAY ==
[2023-11-28 10:43] VITALS: BP 141/66; PULSE 64; RESP 18; O2SAT 97
[2023-11-28] MEDS: methylPREDNISolone ACETATE 80MG/ML VIAL 80 MG (10:43)
[2023-11-28] MEDS: BUPIVACAINE 0.25% 10ML INJ 25 MG IJ (10:43)
[2023-11-28] MEDS: LIDOCAINE 1% 5ML PF VIAL 5 ML (10:43)
[2023-11-28 10:46] VITALS: BP 143/74; PULSE 71; RESP 16; TEMP 36.2; O2SAT 95; BMI 29.2
[2023-11-28 11:00] VITALS: BP 148/70; PULSE 62; RESP 18; O2SAT 99
--- NOTE | 2023-11-28 11:00 | P.PCN_ITS ---
Procedure Date: 11/28/23 Time: 10:50 Anesthesiologist:: Mick Hurst CRNA Complications:: None Pre-procedure Diagnosis:: Bilateral sacroiliitis. Degenerative disc lumbar spine multilevels. Lumbar radiculopathy. Lumbar spondylosis. Multilevel lumbar facet arthropathy. Lumbar disc bulge multilevel. Post-procedure Diagnosis:: Same. Indications for Procedure:: Patient is a pleasant 73-year-old female comes to clinic today for bilateral sacroiliac joint injections of cortisone. She describes low back pain off the midline bilaterally is constant, dull, aching. She reports difficulty transitioning from sitting to standing. She rates her pain 7/10. Procedure Details:: Procedure: Bilateral sacroiliac joint injections under fluoroscopy Informed consent was obtained and the risks and benefits of the procedure were explained to the patient.~ The patient was taken to the procedure room and noninvasive monitors were placed including a noninvasive blood pressure cuff and pulse oximeter.~ The patient was placed prone on the procedure table. Both hips were cleansed using Betadine as a cleansing solution. C-arm fluoroscopy was used to view the right sacroiliac joint.~ The skin and subcutaneous tissues were anesthetized using lidocaine 1.5% and a 25-gauge needle.~ After this, a 22-gauge spinal needle was inserted under fluoroscopic guidance into the inferior aspect of the right sacroiliac joint.~ Omnipaque dye was injected and good spread was seen throughout the joint.~ After this, approximately 5 mL of bupivacaine, 0.25% and Depo-Medrol, 40 mg was incrementally injected into the right sacroiliac joint. We then moved to the left sacroiliac joint.~ The skin and subcutaneous tissues were anesthetized using lidocaine 1.5% and a 25-gauge needle.~ After this, a 22- gauge spinal needle was inserted under fluoroscopic guidance into the inferior aspect of the left sacroiliac joint.~ Omnipaque dye was injected and good spread was seen throughout the joint. After this, approximately 5 mL of bupivacaine, 0.25% and Depo-Medrol, 40 mg was incrementally injected into the left sacroiliac joint.~ The patient tolerated the procedure well with no complications. The patient was observed in the Pain Clinic and then was discharged home neurologically intact. Plan and Disposition:: Patient was discharged without incident.
== END 2023-11-28 11:00 | disposition home or self-care (01) ==
PROVIDERS: PCP Nurse Practitioner Family; Visit Provider Nurse Anesthetist, Certified Registered
DX: M46.1 Sacroiliitis, not elsewhere classified (principal); M51.16 Intervertebral disc disorders with radiculopathy, lumbar region; M47.26 Other spondylosis with radiculopathy, lumbar region
CPT/HCPCS: 27096; G0260; J1010

== ENCOUNTER 2023-12-18 09:18 | Outpatient (POV) | payer MEDICARE, SELFPAY ==
--- NOTE | 2023-12-18 09:40 | EXP.PAIN.SOA ---
[facility] Disclaimer: The information contained in this section may have been updated after the patient was seen, as this information can be updated by other users. Medical History Claudication Dyspnea Chest pain PAF (paroxysmal atrial fibrillation) Family History Mother Diabetes CHF (congestive heart failure) Father Cancer Social History Smoking Status: Never smoker alcohol intake: never substance use type: denies use current occupational status: other Travel in the last 8 weeks: None PM Subjective & Objective Subjective Subjective:: Patient is a pleasant 73-year-old female who presents today for follow-up of bilateral SI injections on 11/28/2023. Today she rates her pain a 3 out of 10. Patient denies any new trauma or injury. She does state that these injections have helped at least 75 to 80%.Patient does state that she feels like the injections has helped take the severity out of her overall pain and is still working well. She did end up having the EMG test done in [place] with Dr. Allison and had no acute findings. Patient states she is also bought a special pillow and a SI brace which is helping additionally. Patient is trying to do everything conservative before proceeding forward with back surgery. She states where Dr. Allison had stated it would be plate and screws and extensive with no guarantees it would provide significant relief. Patient was tried on ropinirole at her last visit however states that she really did not notice any difference with this medication. Her Octavio has been reviewed and is appropriate. Review of Systems: General: No recent weight changes, no fever, no sleep disturbances Respiratory: No cough, no shortness of air, no recurring pulmonary infections Cardiovascular/peripheral vascular: No chest pain, no palpitations, no edema, no shortness of breath Gastrointestinal: No new onset incontinence, normal bowel movements reported Genitourinary: No new onset incontinence Musculoskeletal: Low back pain Psychiatric: [Normal mood/affect] Neurological: [Denies weakness in extremities], [denies balance issues] Pain at rest (0-10 scale): 3 Objective Objective:: Physical Exam: General: Alert and oriented x3, no acute distress, pleasant and cooperative Lungs: Respirations even and unlabored, symmetrical chest expansion Eyes: PERRL Musculoskeletal: Flexion and extension of lumbar [spine] somewhat guarded secondary to pain, [antalgic gait noted] Neurological: Speech clear, no gross sensory deficit Has patient had previous pain injection?: Yes Percent improvement in pain since last injection: 75 to 80% Conservative treatment options previously tried: Home exercise plan Length of treatment: Longer than 6 weeks Meds Home Medications and Allergies Home Medications ?Medication ?Instructions ?Recorded ?Confirmed ?Type clonidine HCl 0.1 mg tablet 0.1 mg PO BID 06/23/22 11/28/23 History ergocalciferol (vitamin D2) 1,250 1,250 mcg PO WEEKLY 06/23/22 11/28/23 History mcg (50,000 unit) capsule escitalopram oxalate 20 mg tablet 20 mg PO DAILY 06/23/22 11/28/23 History esomeprazole magnesium 40 mg 40 mg PO DAILY 06/23/22 11/28/23 History capsule,delayed release meloxicam 15 mg tablet 15 mg PO DAILY 06/23/22 11/28/23 History nitroglycerin 0.4 mg sublingual 0.4 mg sublingual Q5-15M PRN Chest 06/23/22 11/28/23 History tablet Pain ropinirole 0.25 mg tablet 0.25 mg PO HS #30 tabs 11/29/23 Rx New Prescriptions to Start Prescriptions: Allergies Allergy/AdvReac Type Severity Reaction Status Date / Time codeine AdvReac Verified 11/28/23 10:45 iodine AdvReac Verified 11/28/23 10:45 Assessment and Plan *Assessment and plan (1) Bilateral sacroiliitis: Status: Acute Category: Medical Code(s): M46.1 - Sacroiliitis, not elsewhere classified Plan Patient has had significant improvement following her injections and does not require any additional injection therapy at this time. I did discuss at length with the patient regarding possible SI fusion at a later date. Risk and benefits and educational handouts were given at today's visit. We will follow-up with her in 6 weeks after her next follow-up appointment with Dr. Allison. Patient agrees with this plan of care. Patient has been instructed to contact the clinic with any concerns before the next appointment. Dr. Izquierdo has reviewed this note and agrees with this plan of care. This note was dictated using voice recognition software and make contain errors or omissions. All injections are used with Lidocaine or Bupivacaine and Depo Medrol.
[2023-12-18 10:26] VITALS: BP 140/62; PULSE 68; RESP 18; O2SAT 97; BMI 29.2
== END 2023-12-18 23:59 | disposition home or self-care (01) ==
LOC: SC.PAIN 09:19
PROVIDERS: PCP Nurse Practitioner Family; Visit Provider Nurse Practitioner Family
DX: M46.1 Sacroiliitis, not elsewhere classified (principal)
CPT/HCPCS: 99212; G0463

== ENCOUNTER 2024-01-05 09:01 | Outpatient (CLI) | payer MEDICARE, SELFPAY ==
--- NOTE | 2024-01-05 09:04 | XR_ITS ---
FINAL REPORT TECHNIQUE: Bone mineral density was calculated of the lumbar spine and hip. CLINICAL HISTORY: SCREENING COMPARISON: None FINDINGS: Using L1-4, the bone mineral density of the spine is 1.162 g/cm2, corresponding to T-score of 1.0. Using the left hip, the bone mineral density of the femoral neck is 0.724 g/cm2, corresponding to a T-score of -1.1. NOTE: T-score: Standard deviation compared with peak bone mass of young adult mean. *Following the recommendations of the International Society of Bone densitometry, classification of hip BMD is based on the lower of two T-scores; total hip or femoral neck. IMPRESSION: Diminished bone mineral density of the left hip consistent with low bone density. Normal bone mineral density of the lumbar spine. Reviewed, Interpreted and Dictated by Roberth Thomas III, MD Transcribed by Litzy Altman Authenticated and [facility]
[2024-01-05 09:59] LABS: Basophils # 0.1 K/mm3 (0-0.2); Basophils % 1.3 % (0.1-2.0); Eosinophils # 0.2 K/mm3 (0.0-0.4); Hematocrit 39.2 % (37.0-47.0); Hemoglobin 12.1 g/dL (12.2-16.2); Lymphocytes # 1.7 K/mm3 (0.7-4.5); Mean Corpuscular HGB Conc 30.8 g/dL (31.8-35.4); Mean Corpuscular Hemoglobin 27.8 pg (27.0-31.2); Mean Corpuscular Volume 90.2 fl (81-99); Mean Platelet Volume 8.2 fl (7.4-10.4); Monocytes # 0.4 K/mm3 (0.1-1.0); Monocytes % 6.1 % (1.7-9.3); Neutrophils # 3.4 K/mm3 (1.8-7.8); Neutrophils % 58.5 % (37.0-80.0); Platelet Count 329 K/mm3 (142-424); Red Blood Count 4.34 M/mm3 (4.20-5.40); Red Cell Distribution Width 13.8 % (11.5-17.5); White Blood Count 5.7 K/mm3 (4.8-10.8)
[2024-01-05 10:13] LABS: Alanine Aminotransferase 21 U/L (12-78); Albumin Level 3.8 g/dl (3.5-5.0); Albumin/Globulin Ratio 1.3 (1.1-1.8); Alkaline Phosphatase 84 U/L (38-126); Anion Gap 8.1 mEq/L (5-15); Aspartate Amino Transferase 28 U/L (14-36); Bilirubin,Total 0.9 mg/dl (0.2-1.3); Blood Urea Nitrogen 24 mg/dl (7-17); Calcium 9.3 mg/dl (8.4-10.2); Carbon Dioxide 30 mmol/L (22.0-30.0); Chloride 104 mmol/L (98-107); Estimated Glomerular Filt Rate 61 ml/min (>60); GFR (African American) 74 ML/MIN (>60); Globulin 2.9 g/dL (1.3-3.2); Glucose 101 mg/dl (74-100); Magnesium 1.9 mg/dl (1.6-2.3); Potassium 4.1 mmoL/L (3.5-5.1); Sodium 138 mmol/L (136-145); Total Protein,Serum 6.7 g/dl (6.3-8.2)
[2024-01-05 10:29] LABS: 25-OH Vitamin D, Total 50.1 ng/mL (30-100)
[2024-01-05 11:19] LABS: Vitamin B12 338 pg/mL (239-931)
== END 2024-01-05 23:59 | disposition home or self-care (01) ==
LOC: RAD 09:02
PROVIDERS: PCP Nurse Practitioner Family; Visit Provider Nurse Practitioner Family
DX: M81.0 Age-related osteoporosis without current pathological fracture (principal); M79.2 Neuralgia and neuritis, unspecified; E55.9 Vitamin D deficiency, unspecified; Z13.820 Encounter for screening for osteoporosis; Z79.899 Other long term (current) drug therapy
CPT/HCPCS: 36415; 77080; 80053; 82306; 82607; 82746; 83735; 85025

== ENCOUNTER 2024-01-23 10:58 | Outpatient (CLI) | payer MEDICARE, SELFPAY ==
--- NOTE | 2024-01-23 11:03 | XR_ITS ---
FINAL REPORT CLINICAL HISTORY: left hip pain COMPARISON: None FINDINGS: LEFT HIP: Two views of the left hip demonstrate no acute fracture or dislocation. There is a small osteophyte projecting from the medial femoral head consistent with osteoarthritic change. The visualized bony structures are well aligned. No soft tissue abnormality is seen. IMPRESSION: Small osteophyte projecting from the medial femoral head, consistent with osteoarthritic change. Reviewed, Interpreted and Dictated by Hua Tran MD Transcribed by Litzy Altman Authenticated and [facility]
--- NOTE | 2024-01-23 11:03 | XR_ITS ---
FINAL REPORT CLINICAL HISTORY: right knee pain FINDINGS: RIGHT KNEE: 3 images of the right knee were obtained. There is no evidence of fracture or dislocation. There is mild degenerative narrowing of the medial compartment. There is a well-corticated 5 mm density adjacent to the tibial plateau, which may be secondary to remote trauma. IMPRESSION: Mild degenerative narrowing of the medial compartment. Reviewed, Interpreted and Dictated by Hua Tran MD Transcribed by Litzy Altman Authenticated and [facility]
--- NOTE | 2024-01-23 11:03 | XR_ITS ---
FINAL REPORT CLINICAL HISTORY: left knee pain COMPARISON: None FINDINGS: LEFT KNEE 3 views of the left knee were obtained. There is no acute fracture or dislocation. Visualized joint spaces are normally aligned. Soft tissues are unremarkable. IMPRESSION: No acute bony abnormality. Reviewed, Interpreted and Dictated by Hua Tran MD Transcribed by Litzy Altman Authenticated and [facility]
--- NOTE | 2024-01-23 11:03 | XR_ITS ---
FINAL REPORT CLINICAL HISTORY: right hip pain COMPARISON: None FINDINGS: RIGHT HIP Two views of the right hip demonstrate no acute fracture or dislocation. There is a small osteophyte projecting from the inferior right femoral head consistent with mild osteoarthritis. The visualized bony structures are well aligned. No soft tissue abnormality is seen. IMPRESSION: Small inferior right femoral head osteophyte consistent with mild osteoarthritis. Reviewed, Interpreted and Dictated by Hua Tran MD Transcribed by Litzy Altman Authenticated and . [facility]
== END 2024-01-23 23:59 | disposition home or self-care (01) ==
LOC: RAD 10:59
PROVIDERS: PCP Nurse Practitioner Family; Visit Provider Physician Assistant
DX: M25.552 Pain in left hip (principal); M25.562 Pain in left knee; M25.551 Pain in right hip; M25.561 Pain in right knee
CPT/HCPCS: 73502; 73562

== ENCOUNTER 2024-01-25 10:39 | Outpatient (POV) | payer MEDICARE, SELFPAY ==
--- NOTE | 2024-01-25 11:11 | EXP.PAIN.SOA ---
[facility] Disclaimer: The information contained in this section may have been updated after the patient was seen, as this information can be updated by other users. Medical History Claudication Dyspnea Chest pain PAF (paroxysmal atrial fibrillation) Family History Mother Diabetes CHF (congestive heart failure) Father Cancer Social History Smoking Status: Never smoker alcohol intake: never substance use type: denies use current occupational status: other Travel in the last 8 weeks: None PM Subjective & Objective Subjective Subjective:: Patient is a pleasant 74-year-old female who presents today for follow-up. Today she rates her pain a 4 out of 10. She denies any new injury or trauma. Patient does state that she still continues to have the nerve pain that radiates down her legs as well as pain in and around her left hip and buttocks area. Patient does state that that pain does not go into her lower extremities. Patient did previously have bilateral SI injections at the beginning of November that did provide approximately 80% relief. She does state that the right side is still doing well and it is really only the left. Patient does also state from her last visit she has been to see the neurosurgeon and that he did discuss with her that he can do surgical intervention. Patient does state that she is trying to do this as a last resort. Patient did want to also update our office that she has still been seeing orthopedics related to some hip and knee pain. 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 She states that they are having an MRI coming up soon for this and that they did also mention that her hips look like they were losing some bone density. They did recommend her to follow-up with her PCP regarding ordering oral medications to help with this. Her Octavio has been reviewed and is appropriate. Review of Systems: General: No recent weight changes, no fever, no sleep disturbances Respiratory: No cough, no shortness of air, no recurring pulmonary infections Cardiovascular/peripheral vascular: No chest pain, no palpitations, no edema, no shortness of breath Gastrointestinal: No new onset incontinence, normal bowel movements reported Genitourinary: No new onset incontinence Musculoskeletal: Left hip pain, leg nerve pain Psychiatric: [Normal mood/affect] Neurological: [Denies weakness in extremities], [denies balance issues] Pain at rest (0-10 scale): 4 Objective Objective:: Physical Exam: General: Alert and oriented x3, no acute distress, pleasant and cooperative Lungs: Respirations even and unlabored, symmetrical chest expansion Eyes: PERRL Musculoskeletal: Flexion and extension of lumbar [spine] somewhat guarded secondary to pain, [antalgic gait noted] mild tenderness along left SI Neurological: Speech clear, no gross sensory deficit Has patient had previous pain injection?: No Conservative treatment options previously tried: Home exercise plan Length of treatment: Longer than 12 weeks Meds Home Medications and Allergies Home Medications ?Medication ?Instructions ?Recorded ?Confirmed ?Type clonidine HCl 0.1 mg tablet 0.1 mg PO BID 06/23/22 01/23/24 History ergocalciferol (vitamin D2) 1,250 1,250 mcg PO WEEKLY 06/23/22 01/23/24 History mcg (50,000 unit) capsule escitalopram oxalate 20 mg tablet 20 mg PO DAILY 06/23/22 01/23/24 History esomeprazole magnesium 40 mg 40 mg PO DAILY 06/23/22 01/23/24 History capsule,delayed release meloxicam 15 mg tablet 15 mg PO DAILY 06/23/22 01/23/24 History nitroglycerin 0.4 mg sublingual 0.4 mg sublingual Q5-15M PRN Chest 06/23/22 01/23/24 History tablet Pain ropinirole 0.25 mg tablet 0.25 mg PO HS #30 tabs 11/29/23 01/23/24 Rx New Prescriptions to Start Prescriptions: Allergies Allergy/AdvReac Type Severity Reaction Status Date / Time codeine AdvReac Verified 01/23/24 11:37 iodine AdvReac Verified 01/23/24 11:37 Assessment and Plan *Assessment and plan (1) Lumbar spinal stenosis: Status: Acute Qualifiers: Neurogenic claudication status: with neurogenic claudication Qualified Code(s): M48.062 - Spinal stenosis, lumbar region with neurogenic claudication Category: Medical Code(s): M48.061 - Spinal stenosis, lumbar region without neurogenic claudication (2) Degenerative disc disease, lumbar: Status: Acute Category: Medical Code(s): M51.36 - Other intervertebral disc degeneration, lumbar region (3) Bilateral sacroiliitis: Status: Acute Category: Medical Code(s): M46.1 - Sacroiliitis, not elsewhere classified Plan I will send in a 2-week dose of pregabalin 50 mg at bedtime. We did discuss the difference between the gabapentin and the pregabalin and she has never been on either of these medications. She does state that Dr. Allison felt like the gabapentin would just cause increased grogginess and not be beneficial. We will see her back in 2 weeks to evaluate effectiveness regarding this medication. Patient was also discussed that we can also see about additional injections however since she did just have her last injections the beginning of November we will have to wait the 3-month. Patient has been instructed to contact the clinic with any concerns before the next appointment. Dr. Izquierdo has reviewed this note and agrees with this plan of care. This note was dictated using voice recognition software and make contain errors or omissions. All injections are used with Lidocaine or Bupivacaine and Depo Medrol.
[2024-01-25 11:33] VITALS: BP 123/75; PULSE 67; RESP 18; O2SAT 98; BMI 29.7
== END 2024-01-25 23:59 | disposition home or self-care (01) ==
PROVIDERS: PCP Nurse Practitioner Family; Visit Provider Nurse Practitioner Family
DX: M48.062 Spinal stenosis, lumbar region with neurogenic claudication (principal); M46.1 Sacroiliitis, not elsewhere classified; M51.360 Other intervertebral disc degeneration, lumbar region with discogenic back pain only
CPT/HCPCS: 99212; G0463

== ENCOUNTER 2024-01-31 16:59 | Outpatient (CLI) | payer MEDICARE, SELFPAY ==
--- NOTE | 2024-01-31 17:00 | MR_ITS ---
FINAL REPORT CLINICAL HISTORY: evaluate for bakers cyst. POSTERIOR KNEE PAIN FINDINGS: Multiplanar MR imaging of the right knee was performed without contrast. Motion artifact is noted on many of the images. The medial meniscus is obscured by motion but there is a possible tear of the body. There is also lateral meniscal degeneration with a possible partial tear of the posterior root. A partial tear is seen of the anterior cruciate ligament. The posterior cruciate ligament is intact. The medial collateral ligament and lateral ligamentous complex are intact. The patellar and quadriceps tendons are intact. There is no evidence of fracture. Mild and moderate degenerative changes are seen. There is severe medial compartment chondromalacia with multiple small osteochondral lesions of the medial femoral condyle and medial tibial plateau. A moderate joint effusion is seen. The musculature is intact. No soft tissue mass or cyst is identified. IMPRESSION: Significant motion artifact which limits the sensitivity of the study. Possible tears of the body of the medial meniscus and posterior root of the lateral meniscus. Mild and moderate degenerative change with severe medial compartment chondromalacia. Moderate joint effusion. Authenticated and [facility]
== END 2024-01-31 23:59 | disposition home or self-care (01) ==
LOC: RAD 17:00
PROVIDERS: PCP Nurse Practitioner Family; Visit Provider Physician Assistant
DX: M71.22 Synovial cyst of popliteal space [Baker], left knee (principal)
CPT/HCPCS: 73721

== ENCOUNTER 2024-02-29 10:33 | Outpatient (POV) | payer MEDICARE, SELFPAY ==
--- NOTE | 2024-02-29 11:11 | A.OFFVIS_ITS ---
[facility] Disclaimer: The information contained in this section may have been updated after the patient was seen, as this information can be updated by other users. Medical History Claudication Dyspnea Chest pain PAF (paroxysmal atrial fibrillation) Family History Mother Diabetes CHF (congestive heart failure) Father Cancer Social History Smoking Status: Never smoker alcohol intake: never substance use type: denies use current occupational status: other Travel in the last 8 weeks: None PM Subjective & Objective Subjective Subjective:: Patient is a pleasant 74-year-old female who presents today for follow-up. Today she rates her pain a 5 out of 10. She denies any new trauma or injury. She does state that she is started to feel a little bit more pain in her hip and buttocks area and feels like she may be starting to have increased pain in her sacroiliac joints again. Patient did previously have injections in November that provided 80% relief for more still working up until the last couple of weeks. She does state however that this pain is still manageable that she just notices it a little bit more. Patient does also states she still feels like she has nerve pain going down her right extremity from the nerve impingement. Patient does state however that overall this is still manageable as well. Patient was sent in a prescription of pregabalin 50 mg at bedtime. She states she only tried this a couple of times and felt like it did help some. She was unaware that there was another prescription sent in. Patient states that she will start taking this on a more regular basis. Her Octavio has been reviewed and is appropriate. Review of Systems: General: No recent weight changes, no fever, no sleep disturbances Respiratory: No cough, no shortness of air, no recurring pulmonary infections Cardiovascular/peripheral vascular: No chest pain, no palpitations, no edema, no shortness of breath Gastrointestinal: No new onset incontinence, normal bowel movements reported Genitourinary: No new onset incontinence Musculoskeletal: Low back, right leg pain Psychiatric: [Normal mood/affect] Neurological: [Denies weakness in extremities], [denies balance issues] Pain at rest (0-10 scale): 5 Objective Objective:: Physical Exam: General: Alert and oriented x3, no acute distress, pleasant and cooperative Lungs: Respirations even and unlabored, symmetrical chest expansion Eyes: PERRL Musculoskeletal: Flexion and extension of lumbar [spine] somewhat guarded secondary to pain, [antalgic gait noted] Neurological: Speech clear, no gross sensory deficit Has patient had previous pain injection?: No Conservative treatment options previously tried: Home exercise plan Length of treatment: Longer than 12 weeks Meds Home Medications and Allergies Home Medications ?Medication ?Instructions ?Recorded ?Confirmed ?Type clonidine HCl 0.1 mg tablet 0.1 mg PO BID 06/23/22 02/13/24 History ergocalciferol (vitamin D2) 1,250 1,250 mcg PO WEEKLY 06/23/22 02/13/24 History mcg (50,000 unit) capsule escitalopram oxalate 20 mg tablet 20 mg PO DAILY 06/23/22 02/13/24 History esomeprazole magnesium 40 mg 40 mg PO DAILY 06/23/22 02/13/24 History capsule,delayed release meloxicam 15 mg tablet 15 mg PO DAILY 06/23/22 02/13/24 History nitroglycerin 0.4 mg sublingual 0.4 mg sublingual Q5-15M PRN Chest 06/23/22 02/13/24 History tablet Pain ropinirole 0.25 mg tablet 0.25 mg PO HS #30 tabs 11/29/23 02/13/24 Rx pregabalin 50 mg capsule 50 mg PO HS #14 caps 01/25/24 02/13/24 Rx pregabalin 50 mg capsule 50 mg PO HS #30 caps 02/21/24 Rx New Prescriptions to Start Prescriptions: Allergies Allergy/AdvReac Type Severity Reaction Status Date / Time codeine AdvReac Verified 02/13/24 09:55 iodine AdvReac Verified 02/13/24 09:55 Assessment and Plan *Assessment and plan (1) Degenerative disc disease, lumbar: Status: Acute Category: Medical Code(s): M51.36 - Other intervertebral disc degeneration, lumbar region (2) Bilateral sacroiliitis: Status: Acute Category: Medical Code(s): M46.1 - Sacroiliitis, not elsewhere classified Plan Patient was counseled that we will verify that the prescription went through with the 30-day supply of pregabalin 50 mg at bedtime. Patient is still manageable currently with her general low back pain. I will follow-up with her in 30 days for reevaluation of symptoms and plan of care. Patient has been instructed to contact the clinic with any concerns before the next appointment. Dr. Izquierdo has reviewed this note and agrees with this plan of care. This note was dictated using voice recognition software and make contain errors or omissions. All injections are used with Lidocaine or Bupivacaine and Depo Medrol.
[2024-02-29 11:26] VITALS: BP 136/67; PULSE 72; RESP 14; O2SAT 98; BMI 28.3
== END 2024-02-29 23:59 | disposition home or self-care (01) ==
PROVIDERS: PCP Nurse Practitioner Family; Visit Provider Nurse Practitioner Family
DX: M46.1 Sacroiliitis, not elsewhere classified; M51.369 Other intervertebral disc degeneration, lumbar region without mention of lumbar back pain or lower extremity pain
CPT/HCPCS: 99212; G0463

== ENCOUNTER 2024-03-28 09:50 | Outpatient (POV) | payer MEDICARE, SELFPAY ==
[2024-03-28 10:07] VITALS: BP 138/69; PULSE 66; RESP 16; O2SAT 98; BMI 29.2
--- NOTE | 2024-03-28 10:24 | EXP.PAIN.SOA ---
[facility] Disclaimer: The information contained in this section may have been updated after the patient was seen, as this information can be updated by other users. Medical History Claudication Dyspnea Chest pain PAF (paroxysmal atrial fibrillation) Family History Mother Diabetes CHF (congestive heart failure) Father Cancer Social History Smoking Status: Never smoker alcohol intake: never substance use type: denies use current occupational status: retired Travel in the last 8 weeks: None PM Subjective & Objective Subjective Subjective:: Patient is a pleasant 74-year-old female who presents today for worsening pain. She does rate her pain today 6 out of 10. Patient states she still has the chronic pain that goes in her low back patient is a pleasant 74-year-old female who presents today for worsening pain. She does rate her pain today 6 out of 10. Patient states she still has the chronic pain that goes in her low back and radiates down her entire right extremity to her foot. Patient does state this is a aching, throbbing sensation with numbness and tingling and does state that it seems like it is always worse at night. Patient states the pain is constant and interferes with her ability for activities of daily living such as cooking and cleaning. Patient does state that she is on her last dosage of Lyrica and that she does need refills. She states that it does not seem like it is working as well as when she initially started it but does feel like it does still help some. She denies any side effects. Patient is currently managed with Lyrica 50 mg at bedtime. Patient does also cite that she has been to see Dr. Allison and I have talked about surgery however he was recommending trying additional injection therapy. Patient has had a right transforaminal injection in the past that did provide about 50% improvement and bilateral SI injections that provided 75 to 80% improvement. Her Octavio has been reviewed and is appropriate. Review of Systems: General: No recent weight changes, no fever, no sleep disturbances Respiratory: No cough, no shortness of air, no recurring pulmonary infections Cardiovascular/peripheral vascular: No chest pain, no palpitations, no edema, no shortness of breath Gastrointestinal: No new onset incontinence, normal bowel movements reported Genitourinary: No new onset incontinence Musculoskeletal: Low back pain, right leg pain Psychiatric: [Normal mood/affect] Neurological: [Denies weakness in extremities], [denies balance issues] Pain at rest (0-10 scale): 6 Objective Objective:: Physical Exam: General: Alert and oriented x3, no acute distress, pleasant and cooperative Lungs: Respirations even and unlabored, symmetrical chest expansion Eyes: PERRL Musculoskeletal: Flexion and extension of lumbar [spine] somewhat guarded secondary to pain, [antalgic gait noted] positive right leg raise with point tenderness along right SI Neurological: Speech clear, no gross sensory deficit Has patient had previous pain injection?: No Conservative treatment options previously tried: Home exercise plan Length of treatment: Longer than 12 weeks Meds Home Medications and Allergies Home Medications ?Medication ?Instructions ?Recorded ?Confirmed ?Type clonidine HCl 0.1 mg tablet 0.1 mg PO BID 06/23/22 02/29/24 History ergocalciferol (vitamin D2) 1,250 1,250 mcg PO WEEKLY 06/23/22 02/29/24 History mcg (50,000 unit) capsule escitalopram oxalate 20 mg tablet 20 mg PO DAILY 06/23/22 02/29/24 History esomeprazole magnesium 40 mg 40 mg PO DAILY 06/23/22 02/29/24 History capsule,delayed release meloxicam 15 mg tablet 15 mg PO DAILY 06/23/22 02/29/24 History nitroglycerin 0.4 mg sublingual 0.4 mg sublingual Q5-15M PRN Chest 06/23/22 02/29/24 History tablet Pain ropinirole 0.25 mg tablet 0.25 mg PO HS #30 tabs 11/29/23 02/29/24 Rx pregabalin 50 mg capsule 50 mg PO HS #14 caps 01/25/24 02/29/24 Rx pregabalin 50 mg capsule 50 mg PO HS #30 caps 02/21/24 02/29/24 Rx New Prescriptions to Start Prescriptions: Allergies Allergy/AdvReac Type Severity Reaction Status Date / Time codeine AdvReac Verified 02/13/24 09:55 iodine AdvReac Verified 02/13/24 09:55 Assessment and Plan *Assessment and plan (1) Degenerative disc disease, lumbar: Status: Acute Category: Medical Code(s): M51.36 - Other intervertebral disc degeneration, lumbar region (2) Lumbar spinal stenosis: Status: Acute Qualifiers: Neurogenic claudication status: with neurogenic claudication Qualified Code(s): M48.062 - Spinal stenosis, lumbar region with neurogenic claudication Category: Medical Code(s): M48.061 - Spinal stenosis, lumbar region without neurogenic claudication (3) Low back pain: Status: Acute Qualifiers: Chronicity: chronic Back pain laterality: bilateral Sciatica presence: with sciatica Sciatica laterality: bilateral sciatica Qualified Code(s): M54.42 - Lumbago with sciatica, left side; M54.41 - Lumbago with sciatica, right side; G89.29 - Other chronic pain Category: Medical Code(s): M54.50 - Low back pain, unspecified (4) Bilateral sacroiliitis: Status: Acute Category: Medical Code(s): M46.1 - Sacroiliitis, not elsewhere classified Plan Patient is experiencing worsening pain in her low back and right leg with numbness and tingling. Patient did have limited range of motion of her lumbar spine with a positive right leg raise. Patient has tried SI injections and a right transforaminal in the past however has not tried a straightforward lumbar epidural. Based off her prior lumbar imaging with significant narrowing at the L4-L5 level I do believe she would benefit most at this level. Risk and benefits were discussed with the patient and she would like to proceed forward with this plan of care. Patient has tried and failed conservative therapy including oral medications, heat and ice, topicals, at home stretching exercise for longer than 12 weeks and evaluation by neurosurgeon. Patient is not on any blood thinners. I will refill the patient's pregabalin and provide a 1 month supply of this medication. Patient will be scheduled for an LESI L4-L5 under fluoroscopy. Patient has been instructed to contact the clinic with any concerns before the next appointment. Dr. Izquierdo has reviewed this note and agrees with this plan of care. This note was dictated using voice recognition software and make contain errors or omissions. All injections are used with Lidocaine or Bupivacaine and Depo Medrol.
== END 2024-03-28 23:59 | disposition home or self-care (01) ==
PROVIDERS: PCP Nurse Practitioner Family; Visit Provider Nurse Practitioner Family
DX: M48.062 Spinal stenosis, lumbar region with neurogenic claudication (principal); M54.42 Lumbago with sciatica, left side; M54.41 Lumbago with sciatica, right side; G89.29 Other chronic pain; M46.1 Sacroiliitis, not elsewhere classified; M51.369 Other intervertebral disc degeneration, lumbar region without mention of lumbar back pain or lower extremity pain
CPT/HCPCS: 99212; G0463

== ENCOUNTER 2024-04-11 12:52 | Outpatient (CLI) | payer MEDICARE, SELFPAY ==
[2024-04-11 13:01] LABS: Microscopic, Urine URINE MICROSCOPIC (MICROSCOPIC)
[2024-04-11 14:06] LABS: Albumin Level 4.2 g/dl (3.5-5.0); Anion Gap 9.6 mEq/L (5-15); Blood Urea Nitrogen 24 mg/dl (7-17); Calcium 9.2 mg/dl (8.4-10.2); Carbon Dioxide 30 mmol/L (22.0-30.0); Chloride 103 mmol/L (98-107); Estimated Glomerular Filt Rate 70 ml/min (>60); GFR (African American) 85 ML/MIN (>60); Glucose 86 mg/dl (74-100); Phosphorous 3.7 mg/dl (2.5-4.5); Potassium 4.6 mmoL/L (3.5-5.1); Sodium 138 mmol/L (136-145)
[2024-04-11 14:17] LABS: Hematocrit 36.9 % (37.0-47.0); Intact Parathyroid Hormone 58.6 pg/mL (7.5-53.5); Mean Corpuscular HGB Conc 32.5 g/dL (31.8-35.4); Mean Corpuscular Hemoglobin 27.6 pg (27.0-31.2); Mean Corpuscular Volume 84.8 fl (81-99); Platelet Count 296 K/mm3 (142-424); Red Blood Count 4.35 M/mm3 (4.20-5.40); Red Cell Distribution Width 13.4 % (11.5-17.5); White Blood Count 6.3 K/mm3 (4.8-10.8)
[2024-04-11 14:18] LABS: Basophils # 0.1 K/mm3 (0-0.2); Basophils % 1.3 % (0.1-2.0); Eosinophils # 0.2 K/mm3 (0.0-0.4); Eosinophils % 3.3 % (0.1-12.0); Lymphocytes % 31.6 % (10-50); Mean Platelet Volume 9.7 fl (7.4-10.4); Monocytes # 0.6 K/mm3 (0.1-1.0); Monocytes % 9.5 % (1.7-9.3); Neutrophils # 3.4 K/mm3 (1.8-7.8); Neutrophils % 54.1 % (37.0-80.0)
[2024-04-11 14:22] LABS: 25-OH Vitamin D, Total 61.1 ng/mL (30-100)
[2024-04-11 14:29] LABS: Creatinine,Urine Random 165 mg/dL (Not Estab.); Total Protein,Urine Random < 5.0 mg/dL (0.0-12.0)
[2024-04-11 14:32] LABS: Appearance,Urine CLEAR (Clear); Bilirubin,Urine Negative (Negative); Blood, Urine Negative (Negative); Color,Urine Dark Yellow (Yellow); Glucose,Urine (UA) Negative (Negative); Ketones,Urine Negative (Negative); Leukocyte Esterase,Urine Negative (Negative); Nitrate,Urine Negative (Negative); PH,Urine 6.5 (5.0-8.5); Protein,Urine Negative (Negative); Specific Gravity, Urine 1.025 (1.005-1.030)
[2024-04-11 15:25] LABS: Bacteria,Urine Trace /lpf; Mucus,Urine 1+ /lpf; WBC,Urine Occasional #/hpf (0-3)
[2024-04-15 16:14] LABS: Osteocalcin 14.3 ng/mL (5.0-29.5)
[2024-04-15 21:20] LABS: C-Telopeptide Serum 290 pg/mL (.)
== END 2024-04-11 23:59 | disposition home or self-care (01) ==
LOC: LAB 12:53
PROVIDERS: PCP Nurse Practitioner Family; Visit Provider Nurse Practitioner
DX: D69.9 Hemorrhagic condition, unspecified (principal); M81.0 Age-related osteoporosis without current pathological fracture
CPT/HCPCS: 36415; 80069; 81001; 82306; 82523; 82570; 83937; 83970; 84156; 85025

== ENCOUNTER 2024-04-23 13:48 | Day surgery (SDC) | payer MEDICARE, SELFPAY ==
[2024-04-23 14:29] VITALS: BP 188/73; PULSE 60; RESP 16; TEMP 36.4; O2SAT 97; BMI 28.3
--- NOTE | 2024-04-23 14:56 | EXP.PAIN.PRO ---
Procedure Date: 04/23/24 Time: 15:00 Anesthesiologist:: Mick Hurst CRNA Complications:: None Pre-procedure Diagnosis:: Degenerative disc lumbar spine multilevels. Lumbar radiculopathy. Lumbar spondylosis Post-procedure Diagnosis:: Same. Indications for Procedure:: Patient is a very pleasant 74-year-old female who comes our clinic today for lumbar epidural steroid injection. Patient describes low lumbar back pain as constant, dull, aching. Patient also reports right hip and leg radicular symptoms at times. Patient reports numbness in the right leg to the foot. Procedure Details:: Procedure: Lumbar epidural steroid injection under fluoroscopy Informed consent was obtained and the risks and benefits of the procedure were explained to the patient. The patient was taken to the procedure room and noninvasive monitors placed, including noninvasive blood pressure cuff and pulse oximeter. The back was viewed using C-arm Fluoroscopy and prepped using Chloraprep as a cleansing solution and the L4-L5 interspace was palpated. Skin and subcutaneous tissues were anesthetized using lidocaine 1.5% and a 25-gauge needle. After this, an 18-gauge Touhy epidural needle was placed into the L4-L5 interspace and advanced using fluoroscopic guidance and loss of resistance to air until the epidural space was encountered. After confirmation of needle placement in the epidural space, with dye, a solution containing normal saline, 3 mL and Depo-Medrol 80 mg were incrementally injected into the lumbar epidural space. The patient tolerated the procedure well with no complications. The patient was observed in the Pain Clinic and then discharged home neurologically intact. Plan and Disposition:: Patient was discharged without incident.
[2024-04-23 15:09] VITALS: BP 176/74; PULSE 57; RESP 16; TEMP 36.5; O2SAT 98
== END 2024-04-23 15:08 | disposition home or self-care (01) ==
PROVIDERS: PCP Nurse Practitioner Family; Visit Provider Nurse Anesthetist, Certified Registered
DX: M51.16 Intervertebral disc disorders with radiculopathy, lumbar region (principal); M47.26 Other spondylosis with radiculopathy, lumbar region
CPT/HCPCS: 62323; J1010

== ENCOUNTER 2024-05-08 14:08 | Outpatient (POV) | payer MEDICARE, SELFPAY ==
[2024-05-08 15:07] VITALS: BP 133/72; PULSE 69; RESP 16; O2SAT 98; BMI 28.3
--- NOTE | 2024-05-08 15:10 | A.OFFVIS_ITS ---
[facility] Disclaimer: The information contained in this section may have been updated after the patient was seen, as this information can be updated by other users. Medical History Claudication Dyspnea Chest pain PAF (paroxysmal atrial fibrillation) Family History Mother Diabetes CHF (congestive heart failure) Father Cancer Social History Smoking Status: Never smoker alcohol intake: never substance use type: denies use current occupational status: other Travel in the last 8 weeks: None PM Subjective & Objective Subjective Subjective:: Patient is a pleasant [age]-year-old female who presents today for follow-up of lumbar epidural steroid injection L4-L5 on 04/23/2024 and worsening pain. Today she rates her pain a 6 out of 10. She denies any new trauma or injury. Patient states the pain is all in her low back and hips and denies any radiating symptoms into her legs. She does state that the injection did seem to significantly help and that the day of the procedure she walked out with very minimal pain if any however now she is rating it more at a 30% improvement. She does state that she has severe pain all across the low back and that it is very tender and is affecting her ability to perform activities of daily living such as cooking and cleaning. Patient has tried and failed conservative therapy including oral medication, heat and ice, topicals, chiropractor therapy and continued at home exercising and stretching for longer than 12 weeks. Her Octavio has been reviewed and is appropriate. Review of Systems: General: No recent weight changes, no fever, no sleep disturbances Respiratory: No cough, no shortness of air, no recurring pulmonary infections Cardiovascular/peripheral vascular: No chest pain, no palpitations, no edema, no shortness of breath Gastrointestinal: No new onset incontinence, normal bowel movements reported Genitourinary: No new onset incontinence Musculoskeletal: Low back pain, bilateral hip pain Psychiatric: [Normal mood/affect] Neurological: [Denies weakness in extremities], [denies balance issues] Pain at rest (0-10 scale): 6 Objective Objective:: Physical Exam: General: Alert and oriented x3, no acute distress, pleasant and cooperative Lungs: Respirations even and unlabored, symmetrical chest expansion Eyes: PERRL Musculoskeletal: Flexion and extension of lumbar [spine] somewhat guarded secondary to pain, [antalgic gait noted] point tenderness along bilateral SIs with positive bilateral Sherman's, Jah's, Gaenslen's, compression and distraction exam Neurological: Speech clear, no gross sensory deficit Has patient had previous pain injection?: Yes Percent improvement in pain since last injection: 50 to 30% Conservative treatment options previously tried: Home exercise plan Length of treatment: Longer than 12 weeks and Chiropractor Length of treatment: Longer than 12 weeks Meds Home Medications and Allergies Home Medications ?Medication ?Instructions ?Recorded ?Confirmed ?Type clonidine HCl 0.1 mg tablet 0.1 mg PO BID 06/23/22 04/23/24 History ergocalciferol (vitamin D2) 1,250 1,250 mcg PO WEEKLY 06/23/22 04/23/24 History mcg (50,000 unit) capsule escitalopram oxalate 20 mg tablet 20 mg PO DAILY 06/23/22 04/23/24 History esomeprazole magnesium 40 mg 40 mg PO DAILY 06/23/22 04/23/24 History capsule,delayed release meloxicam 15 mg tablet 15 mg PO DAILY 06/23/22 04/23/24 History nitroglycerin 0.4 mg sublingual 0.4 mg sublingual Q5-15M PRN Chest 06/23/22 04/23/24 History tablet Pain ropinirole 0.25 mg tablet 0.25 mg PO HS #30 tabs 11/29/23 04/23/24 Rx pregabalin 50 mg capsule 50 mg PO HS #14 caps 01/25/24 04/23/24 Rx pregabalin 50 mg capsule 50 mg PO HS #30 caps 04/25/24 Rx New Prescriptions to Start Prescriptions: Allergies Allergy/AdvReac Type Severity Reaction Status Date / Time codeine AdvReac Verified 02/13/24 09:55 iodine AdvReac Verified 02/13/24 09:55 Assessment and Plan *Assessment and plan (1) Bilateral sacroiliitis: Status: Acute Category: Medical Code(s): M46.1 - Sacroiliitis, not elsewhere classified Plan Patient is experiencing worsening pain along the low back and bilateral hips. They did have limited range of motion of the lumbar spine along with extreme point tenderness along bilateral SI joints and a positive bilateral Sherman's, Jah's, Gaenslen's, compression and distraction exam. I did discuss with the patient that I do believe they would benefit from bilateral SI injections. Risk and benefits were discussed with the patient and they would like to proceed forward with this option. Patient has tried and failed conservative therapy including chiropractor therapy and physician guided at home stretching exercise for longer than 12 weeks. Patient does have a longstanding history of sacroiliitis and this has been going on for longer than 3 months. Patient's last SI injections were back in November that did provide 80% relief and lasted longer than 3 months. Patient states the pain has just gotten more severe in t he last month. Patient did have improved function with decreased pain with the SI injections in the past. patient will be scheduled for bilateral SI injections under fluoroscopy. Patient has been instructed to contact the clinic with any concerns before the next appointment. Dr. Izquierdo has reviewed this note and agrees with this plan of care. This note was dictated using voice recognition software and make contain errors or omissions. All injections are used with Lidocaine or Bupivacaine and Depo Medrol.
== END 2024-05-08 23:59 | disposition home or self-care (01) ==
LOC: SC.PAIN 14:08
PROVIDERS: PCP Nurse Practitioner Family; Visit Provider Nurse Practitioner Family
DX: M46.1 Sacroiliitis, not elsewhere classified (principal); Z73.89 Other problems related to life management difficulty
CPT/HCPCS: 99212; G0463

== ENCOUNTER 2024-05-21 13:20 | Day surgery (SDC) | payer MEDICARE, SELFPAY ==
[2024-05-21 13:40] VITALS: BP 117/65; PULSE 74; RESP 18; TEMP 36.5; O2SAT 97; BMI 28.3
[2024-05-21 14:08] VITALS: BP 126/65; PULSE 70; RESP 16; O2SAT 96
[2024-05-21] MEDS: LIDOCAINE 1% 5ML PF VIAL 5 ML (14:09)
[2024-05-21] MEDS: BUPIVACAINE 0.25% 10ML INJ 25 MG IJ (14:09)
[2024-05-21 14:11] VITALS: BP 126/65; PULSE 70; RESP 16; O2SAT 96
[2024-05-21 14:15] VITALS: BP 132/68; PULSE 72; RESP 18; TEMP 36.5; O2SAT 98
--- NOTE | 2024-05-21 14:15 | P.PCN_ITS ---
Procedure Date: 05/21/24 Time: 14:00 Anesthesiologist:: Mick Hurst CRNA Complications:: None Pre-procedure Diagnosis:: Bilateral sacroiliitis Post-procedure Diagnosis:: Same Indications for Procedure:: Patient is a very pleasant 74-year-old female who comes our clinic today for bilateral sacroiliac joint injections cortisone and local anesthetic. Patient describes low lumbar back pain off the midline bilaterally. Bilateral posterior hip pain. Difficulty transitioning from sitting to standing. She rates her pain 7/10. Patient reports responding very well to previous sacroiliac joint injections of cortisone and local anesthetic in the past. Procedure Details:: Procedure: Bilateral sacroiliac joint injections under fluoroscopy Informed consent was obtained and the risks and benefits of the procedure were explained to the patient.~ The patient was taken to the procedure room and noninvasive monitors were placed including a noninvasive blood pressure cuff and pulse oximeter.~ The patient was placed prone on the procedure table. Both hips were cleansed using Betadine as a cleansing solution. C-arm fluoroscopy was used to view the right sacroiliac joint.~ The skin and subcutaneous tissues were anesthetized using lidocaine 1.5% and a 25-gauge needle.~ After this, a 22-gauge spinal needle was inserted under fluoroscopic guidance into the inferior aspect of the right sacroiliac joint.~ Omnipaque dye was injected and good spread was seen throughout the joint.~ After this, approximately 5 mL of bupivacaine, 0.25% and Depo-Medrol, 40 mg was incrementally injected into the right sacroiliac joint. We then moved to the left sacroiliac joint.~ The skin and subcutaneous tissues were anesthetized using lidocaine 1.5% and a 25-gauge needle.~ After this, a 22- gauge spinal needle was inserted under fluoroscopic guidance into the inferior aspect of the left sacroiliac joint.~ Omnipaque dye was injected and good spread was seen throughout the joint. After this, approximately 5 mL of bupivacaine, 0.25% and Depo-Medrol, 40 mg was incrementally injected into the left sacroiliac joint.~ The patient tolerated the procedure well with no complications. The patient was observed in the Pain Clinic and then was discharged home neurologically intact. Plan and Disposition:: Patient was discharged without incident.
== END 2024-05-21 14:15 | disposition home or self-care (01) ==
PROVIDERS: PCP Nurse Practitioner Family; Visit Provider Nurse Anesthetist, Certified Registered
DX: M46.1 Sacroiliitis, not elsewhere classified (principal)
CPT/HCPCS: 27096; G0260; J1010

== ENCOUNTER 2024-06-05 11:22 | Outpatient (POV) | payer MEDICARE, SELFPAY ==
--- NOTE | 2024-06-05 11:26 | EXP.PAIN.SOA ---
[facility] Disclaimer: The information contained in this section may have been updated after the patient was seen, as this information can be updated by other users. Medical History Claudication Dyspnea Chest pain PAF (paroxysmal atrial fibrillation) Family History Mother Diabetes CHF (congestive heart failure) Father Cancer Social History (Updated 05/21/24 @ 13:40 by Khushi Monae RN) Smoking Status: Never smoker alcohol intake: never substance use type: denies use current occupational status: other Travel in the last 8 weeks: None PM Subjective & Objective Subjective Subjective:: Patient is a pleasant 74-year-old female who presents today for follow-up of bilateral SI injections on 05/21/2024. Today she rates her pain a 0 out of 10. She denies any new trauma or injury. She states that she has had approximately 90 percent improvement following this injection. She states that she has already noticed a difference that she is able to move around easier with decreased pain. She states that she is sleeping so much better and is not having the pain into her upper thigh like what it was. Patient does state that she still does have difficulty with certain movements such as bending. Patient is asking whether or not physical therapy may be beneficial. Her Octavio has been reviewed and is appropriate. Review of Systems: General: No recent weight changes, no fever, no sleep disturbances Respiratory: No cough, no shortness of air, no recurring pulmonary infections Cardiovascular/peripheral vascular: No chest pain, no palpitations, no edema, no shortness of breath Gastrointestinal: No new onset incontinence, normal bowel movements reported Genitourinary: No new onset incontinence Musculoskeletal: Low back pain Psychiatric: [Normal mood/affect] Neurological: [Denies weakness in extremities], [denies balance issues] Pain at rest (0-10 scale): 0 Objective Objective:: Physical Exam: General: Alert and oriented x3, no acute distress, pleasant and cooperative Lungs: Respirations even and unlabored, symmetrical chest expansion Eyes: PERRL Musculoskeletal: Flexion and extension of lumbar [spine] somewhat guarded secondary to pain, [antalgic gait noted] Neurological: Speech clear, no gross sensory deficit Has patient had previous pain injection?: Yes Percent improvement in pain since last injection: 90 Conservative treatment options previously tried: Home exercise plan Length of treatment: Longer than 12 weeks Meds Home Medications and Allergies Home Medications ?Medication ?Instructions ?Recorded ?Confirmed ?Type clonidine HCl 0.1 mg tablet 0.1 mg PO BID 06/23/22 05/21/24 History ergocalciferol (vitamin D2) 1,250 1,250 mcg PO WEEKLY 06/23/22 05/21/24 History mcg (50,000 unit) capsule escitalopram oxalate 20 mg tablet 20 mg PO DAILY 06/23/22 05/21/24 History esomeprazole magnesium 40 mg 40 mg PO DAILY 06/23/22 05/21/24 History capsule,delayed release meloxicam 15 mg tablet 15 mg PO DAILY 06/23/22 05/21/24 History nitroglycerin 0.4 mg sublingual 0.4 mg sublingual Q5-15M PRN Chest 06/23/22 05/21/24 History tablet Pain ropinirole 0.25 mg tablet 0.25 mg PO HS #30 tabs 11/29/23 05/21/24 Rx pregabalin 50 mg capsule 50 mg PO HS #14 caps 01/25/24 05/21/24 Rx pregabalin 50 mg capsule 50 mg PO HS #30 caps 04/25/24 05/21/24 Rx New Prescriptions to Start Prescriptions: Allergies Allergy/AdvReac Type Severity Reaction Status Date / Time codeine AdvReac unkn Verified 05/21/24 13:43 iodine AdvReac unkn' Verified 05/21/24 13:43 Assessment and Plan *Assessment and plan (1) Degenerative disc disease, lumbar: Status: Acute Category: Medical Code(s): M51.369 - Other intervertebral disc degeneration, lumbar region without mention of lumbar back pain or lower extremity pain Plan I did discuss with the patient that I definitely would recommend physical therapy to see if it would improve her low back and bilateral leg symptoms. Patient does state that she would like to go there in [place] where she lives. I will write out a physical order for her to take to that office. Patient was counseled to that some of the bending pain may be related to her facet joints and we can follow-up with this at later visits. Patient will return to clinic in 1 month for reevaluation of symptoms and plan of care. Patient has been instructed to contact the clinic with any concerns before the next appointment. Dr. Izquierdo has reviewed this note and agrees with this plan of care. This note was dictated using voice recognition software and make contain errors or omissions. All injections are used with Lidocaine, Bupivacaine and Depo Medrol. Occasionally urine drug screen is needed to verify patient's compliance with our office pain contract. This is ordered based off specific treatments related to chronic pain with the potential to abuse certain medications.
[2024-06-05 11:45] VITALS: BP 115/68; PULSE 87; RESP 14; O2SAT 100; BMI 28.3
== END 2024-06-05 23:59 | disposition home or self-care (01) ==
LOC: SC.PAIN 11:23
PROVIDERS: PCP Nurse Practitioner Family; Visit Provider Nurse Practitioner Family
DX: M51.369 Other intervertebral disc degeneration, lumbar region without mention of lumbar back pain or lower extremity pain (principal)
CPT/HCPCS: 99212; G0463

== ENCOUNTER 2024-06-18 15:00 | Outpatient (RCR) | payer MEDICARE, SELFPAY ==
--- NOTE | 2024-06-11 16:58 | HMH.PTOPEV ---
PT Outpatient Evaluation Rehab PT Outpatient Evaluation Start: 06/11/24 15:52 Freq: Status: Active Protocol: Document 06/11/24 15:52 PDESEROUX (Rec: 06/11/24 16:58 PDESEROUX [id number]) E-signed By Mick Gee, PT Outpatient Therapy Subjective History Subjective History Pt. is a 74 year old female who presents to [facility] Outpatient Physical Therapy Services in [place] for the outpatient initial evaluation this date( 06/11/24) w/ c/o chronic and constant lumbar and RLE P!, numbness, and weakness of insidious onset over the last couple of years. Pt. c/o having difficulty w/ picking up her foot w/ ambulation, states having difficulty negotiating uneven terrain and negotiating rugs. Pt. also c/ o having difficulty w/ bending over to pick remover her purse off the floor secondary to P!. Pt . vocalizes having an increase in RLE P! w/ initial step after prolonged sitting, but also w/ stepping up w/ the RLE . Pt. reports having some symptom relief w/ rounds of injections. Recent diagnostic imaging indicates bulging discs on 2 nerves per pt. report. Current medications include Lyrica. PMH includes B /L sacroiliitis. New diagnosis of cancer in past 12 No months? Chief Complaint Pain,Spasms,Stiff,Gives out/ Unstable,Paresthesia,Weakness Symptom Type Ache,Dull,Stabbing,Burning, Numbness,Tingling,Shooting Symptoms Relieved By Rest/Positioning,Heat, Prescription Meds Symptoms Aggravated By Sitting,Standing,Bending/ Stooping,Twisting,Walking, Lifting Prior Functional Limitations None Current Functional Limitations Lifting,Housework,Standing, Recreation Activity,Walking, Stairs,Bending/Stooping Symptom Description Constant but Variable,Activity Dependent Level of pain today (0-10) 4 Pain scale - at its best (0-10) 3 Pain scale - at its worst (0-10) 8 Lumbopelvic Eval Posture Thoracic Spine Posture Standing Position Neutral Lumbar Spine Posture Standing Position Flexible Scoliosis on (L), Flexed Assistive device Assistive Devices None / NA Gait Observation General Gait Pattern Observation Antalgic Gait,Decrease Weight Bear (R),Decrease Stride Lngth (L) Palapation tenderness bilateral lumbar spinal tenderness Yes: L2/L3/L4/L5/S1 buttock tenderness Yes: piriformis mm. Lumbar/Sacral Palpation Findings Tenderness,Spasm Lumbar/Sacral Palpation Overall Comment grade 3 +TTP Accessory Movement L-spine Vertebrae Accessory Movements Central P/A Avery,Right P/A that Elicit Symptoms Avery L2 right L3 right L4 right L5 right S1 right Range of Motion Lumbar Spine Active Flexion Range of 14 Motion (degrees) Lumbar Spine Active Extension Range of 17 Motion (degrees) Left Lumbar Spine Lateral Flexion Active 11 Range of Motion (degrees) Right Lumbar Spine Lateral Flexion 8 Active Range of Motion (degrees) Lumbar Spine ROM Limitations Soft Tissue Tightness,Muscle Tone,Pain Manual Muscle Test Right Knee Extension Strength Grade 4 Good Knee Flexion Strength Grade 4 Good Hip Flexion Strength Grade 4 Good Hip Abduction Strength Grade 4 Good Hip Adduction Strength Grade 4 Good Hip External Rotation Strength Grade 3+ Fair+ Hip Internal Rotation Strength Grade 3+ Fair+ Hip Extension Strength Grade 4 Good Gluteus Nathaniel Strength Grade 4 Good Extensor Hallucis Longus Strength Grade 4 Good Ankle Dorsiflexion Strength Grade 4 Good Gastronemius/Soleus Strength Grade 4 Good DTR Rt Patellar 3+ Lt Patellar 3+ Rt Gastroc/Soleus 2+ Lt Gastroc/Soleus 2+ Altered Sensation Bilateral LE Dermatome Level L1,L2,L3,L4,L5 Comment vocalized light touch sensation symmetrical in BLEs grossly Special Tests Lumbar Spine Screen Positive Hip Piriformis Test Positive Right Sciatic Nerve Tension Test Positive Right Lumbar Long [place] Distraction Test/Manual Positive Traction Outpatient Therapy Assessment Impairments Problems/Impairmments Palpation Tenderness,Impaired Range of Motion,Impaired Strength,Impaired Transfers, Impaired Gait Pattern,Impaired Walking,Impaired Standing, Impaired Sitting,Impaired Household Care,Impaired Stair Climbing,Impaired Incline Stepping,Impaired Stepping on Uneven Surface,Impaired Bending,Impaired Recreational Activities,Impaired Work Activities,Subjective C/O Pain ,Impaired Self Care/Self Management Prognosis Rehab Potential Good Comment w/ HEP compliancy Clinical Impression Consistent with Diagnosis Yes Consistent with lumbar radiculopathy, R Short Term Goals Number of Weeks 2 Decreased Palpation Tenderness Yes: grade 1-2 +TTP Decrease Subjective C/O Pain Yes: worse:/10 Patient to be Ind w/ HEP Yes Tailor Fitter Goals Number of Weeks 4-6 Decreased Palpation Tenderness Yes: grade 1 +TTP Increase Range of Motion Yes: lumbar AROM >85% norms grossly w/o difficulty Increase Strength Yes: RLE MMT scores 4+ to 5/5 grossly Improve Transfers Yes: Pt. 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 Improve Oswestry Score Yes Decrease Subjective C/O Pain Yes: worse:-07/01 Patient to be Ind w/ Advanced HEP Yes Outpatient Therapy Plan of Care Treatment Plan May Include Therapeutic Exercise Including Home Yes Exercise Program Manual Therapy Techniques Yes Neuromuscular Re-education Yes Therapeutic Activities to Return to Yes Previous Functional/Work Level Gait Training Yes ADL/Self Care Education Yes Mechanical Traction Yes Dry Needling Yes Thermal Modalities Yes Electrical Stimulation Yes Ultrasound/Phonophoresis Yes Iontophoresis Yes Vasopneumatic Compression Pump Yes Massage Yes Eval/Re-Eval Yes Frequency Times per week 2 Duration Number of Weeks 4-6 Addendums This patient is a candidate for social No or vocational rehab? Patient/Guardian verbally acknowledges Yes understanding of treatment program and consents to further treatment? Patient/Guardian verbally acknowledges Yes understanding of diagnosis, prognosis and goals for treatment? Eval Complexity PT Charges 38845 - Low Complexity Shoulder/Elbow Eval Shoulder Objective Measurements Elbow Objective Measurements PHYSICIAN CERTIFICATION: I certify the specified therapy services for Deanna Joshi are required, authorized, and reviewed every 30 days.
== END 2024-06-18 23:59 | disposition home or self-care (01) ==
LOC: PT 15:00
PROVIDERS: PCP Nurse Practitioner Family; Visit Provider Nurse Practitioner Family
DX: M54.50 Low back pain, unspecified (principal); M79.604 Pain in right leg; M79.605 Pain in left leg
CPT/HCPCS: 97014; 97110; 97140; 97163; G0283

== ENCOUNTER 2024-07-03 11:12 | Outpatient (POV) | payer MEDICARE, SELFPAY ==
[2024-07-03 11:27] VITALS: BP 102/67; PULSE 72; RESP 14; O2SAT 98; BMI 28.6
--- NOTE | 2024-07-03 12:01 | EXP.PAIN.SOA ---
[facility] Disclaimer: The information contained in this section may have been updated after the patient was seen, as this information can be updated by other users. Medical History Claudication Dyspnea Chest pain PAF (paroxysmal atrial fibrillation) Family History Mother Diabetes CHF (congestive heart failure) Father Cancer Social History Smoking Status: Never smoker alcohol intake: never substance use type: denies use current occupational status: other Travel in the last 8 weeks: None Have you lived/traveled outside US in past 30 days?: No Contact w/someone who lives/traveled outside US past 30 days?: No Exposure to someone with infectious disease in past 14 days?: No Do you have a fever (greater than 100.4 F or 38 C)?: No Have you tested positive for COVID-19: No Exposed to someone with COVID-19 in past 14 days?: No Do you have a sore throat?: No Do you have a cough?: No Do you have any weakness?: No Do you have any diarrhea?: No Are you experiencing any unusual bleeding?: No Do you have any muscle aches/pain?: No Do you have any abdominal pain?: No Are you experiencing loss of taste or smell?: No PM Subjective & Objective Subjective Subjective:: Patient is a pleasant 74-year-old female who presents today for worsening pain. Today she rates her pain a 7 out of 10. Patient states that she has not had any new falls or injuries however she went to her therapist appointment yesterday and actually worked with the doctor and felt like she ultimately ended up back at [place] [id number]. Patient states that she is having increased pain with numbness along that right side. Patient states that it is not a new pain is just the same pain she was experiencing however through the SI injections that she had in April that did provide 90% improvement she felt like she was doing much better. Patient states that she has had about 8 sessions in physical therapy and overall they were working really well. Patient states that she had been working with a different provider when she is gone in the past and that she frequently would do exercises leading up to the decompression or traction machine. She states that the last time she did the traction that it did really provide significant relief and she was really hopeful yesterday. She states that the drawing sensation is back in her lower leg and it is affecting her ability perform activities of daily living such as cooking and cleaning. Patient states that the therapist did have high concerns due to the worsening pain yesterday and had even mention about having updated imaging. Patient does also state that she did have some numbness in her face yesterday that she has hide in the past however had gone away when she had saw her chiropractor. Her Octavio has been reviewed and is appropriate. Review of Systems: General: No recent weight changes, no fever, no sleep disturbances Respiratory: No cough, no shortness of air, no recurring pulmonary infections Cardiovascular/peripheral vascular: No chest pain, no palpitations, no edema, no shortness of breath Gastrointestinal: No new onset incontinence, normal bowel movements reported Genitourinary: No new onset incontinence Musculoskeletal: Low back pain, right leg pain Psychiatric: [Normal mood/affect] Neurological: [Denies weakness in extremities], [denies balance issues] Pain at rest (0-10 scale): 7 Objective Objective:: Physical Exam: General: Alert and oriented x3, no acute distress, pleasant and cooperative Lungs: Respirations even and unlabored, symmetrical chest expansion Eyes: PERRL Musculoskeletal: Flexion and extension of lumbar [spine] somewhat guarded secondary to pain, [antalgic gait noted] Neurological: Speech clear, no gross sensory deficit Has patient had previous pain injection?: No Conservative treatment options previously tried: Home exercise plan Length of treatment: Longer than 12 weeks and Physical Therapy Length of treatment: Ongoing Meds Home Medications and Allergies Home Medications ?Medication ?Instructions ?Recorded ?Confirmed ?Type clonidine HCl 0.1 mg tablet 0.1 mg PO BID 06/23/22 07/03/24 History ergocalciferol (vitamin D2) 1,250 1,250 mcg PO WEEKLY 06/23/22 07/03/24 History mcg (50,000 unit) capsule escitalopram oxalate 20 mg tablet 20 mg PO DAILY 06/23/22 07/03/24 History esomeprazole magnesium 40 mg 40 mg PO DAILY 06/23/22 07/03/24 History capsule,delayed release meloxicam 15 mg tablet 15 mg PO DAILY 06/23/22 07/03/24 History nitroglycerin 0.4 mg sublingual 0.4 mg sublingual Q5-15M PRN Chest 06/23/22 07/03/24 History tablet Pain ropinirole 0.25 mg tablet 0.25 mg PO HS #30 tabs 11/29/23 07/03/24 Rx pregabalin 50 mg capsule 50 mg PO HS #14 caps 01/25/24 07/03/24 Rx pregabalin 50 mg capsule 50 mg PO HS #30 caps 04/25/24 07/03/24 Rx New Prescriptions to Start Prescriptions: Allergies Allergy/AdvReac Type Severity Reaction Status Date / Time codeine AdvReac unkn Verified 06/25/24 13:35 iodine AdvReac unkn' Verified 06/25/24 13:35 Assessment and Plan *Assessment and plan (1) Lumbar spinal stenosis: Status: Acute Qualifiers: Neurogenic claudication status: with neurogenic claudication Qualified Code(s): M48.062 - Spinal stenosis, lumbar region with neurogenic claudication Category: Medical Code(s): M48.061 - Spinal stenosis, lumbar region without neurogenic claudication (2) Degenerative disc disease, lumbar: Status: Acute Category: Medical Code(s): M51.369 - Other intervertebral disc degeneration, lumbar region without mention of lumbar back pain or lower extremity pain (3) Low back pain: Status: Acute Qualifiers: Chronicity: chronic Back pain laterality: bilateral Sciatica presence: with sciatica Sciatica laterality: bilateral sciatica Qualified Code(s): M54.42 - Lumbago with sciatica, left side; M54.41 - Lumbago with sciatica, right side; G89.29 - Other chronic pain Category: Medical Code(s): M54.50 - Low back pain, unspecified (4) Bilateral sacroiliitis: Status: Acute Category: Medical Code(s): M46.1 - Sacroiliitis, not elsewhere classified Plan I did discuss at length with the patient that based off everything that she went over for her therapy appointment that it does sound like the previous provider she had been seeing was doing a more conservative stepwise approach and it could have been that yesterday's visit was at a heavier weight than what she has been used to. Patient also stated that she did not do the stretching exercises that she had been previously had before hand. I did discuss with the patient that I would like to see how she progresses over the next few days and whether or not if the pain continues or it does improve. I would recommend based off of her symptoms whether she proceeds forward with additional physical therapy. Patient was counseled if it does improve then I would say that she could go back to therapy this week however if it does not to wait until next week before proceeding forward. We will order x-ray imaging of her lumbar spine and we will proceed forward with an MRI without contrast of her lumbar spine to follow. Patient was counseled that we will follow-up with her in 1 month following her advanced imaging. Patient has been instructed to contact the clinic with any concerns before the next appointment. Dr. Izquierdo has reviewed this note and agrees with this plan of care. This note was dictated using voice recognition software and make contain errors or omissions. All injections are used with Lidocaine, Bupivacaine and Depo Medrol. Occasionally urine drug screen is needed to verify patient's compliance with our office pain contract. This is ordered based off specific treatments related to chronic pain with the potential to abuse certain medications.
--- NOTE | 2024-07-03 12:23 | XR_ITS ---
FINAL REPORT TECHNIQUE: Lumbar spine 3 views CLINICAL HISTORY: Low back pain COMPARISON: None FINDINGS: LUMBAR SPINE: AP and lateral views of the lumbar spine were obtained. There is no prior exam for comparison. There is no acute fracture. There is 15 degrees of levoscoliosis of the upper lumbar spine. Vertebral body height is preserved. Advanced degenerative disc disease is present with disc space narrowing at each intervertebral level in the lumbar spine. Vacuum phenomenon is present at the L5-S1 level. Facet sclerosis is present in the lower lumbar spine. No acute paraspinal abnormality. IMPRESSION: Multilevel degenerative change as described above. Reviewed, Interpreted and Dictated by Hua Tran MD Transcribed by Litzy Altman Authenticated and [facility]
== END 2024-07-03 23:59 | disposition home or self-care (01) ==
PROVIDERS: PCP Nurse Practitioner Family; Visit Provider Nurse Practitioner Family
DX: M51.369 Other intervertebral disc degeneration, lumbar region without mention of lumbar back pain or lower extremity pain (principal); M48.062 Spinal stenosis, lumbar region with neurogenic claudication; M54.42 Lumbago with sciatica, left side; M54.41 Lumbago with sciatica, right side; G89.29 Other chronic pain; M46.1 Sacroiliitis, not elsewhere classified; Z73.89 Other problems related to life management difficulty
CPT/HCPCS: 72100; 99212; G0463

== ENCOUNTER 2024-07-09 10:00 | Outpatient (RCR) | payer MEDICARE, SELFPAY | END 2024-07-22 15:56 | disposition home or self-care (01) | LOC: PT 10:00 | PROVIDERS: PCP Nurse Practitioner Family; Visit Provider Nurse Practitioner Family | DX: M54.50 Low back pain, unspecified (principal); M79.661 Pain in right lower leg; M79.662 Pain in left lower leg | CPT/HCPCS: 20560; 97010; 97012; 97014; 97110; 97140; G0283 ==

== ENCOUNTER 2024-08-01 13:12 | Outpatient (POV) | payer MEDICARE, SELFPAY ==
[2024-08-01 14:12] VITALS: BP 132/73; PULSE 65; RESP 14; O2SAT 99; BMI 29.2
--- NOTE | 2024-08-01 14:21 | EXP.PAIN.SOA ---
[facility] Disclaimer: The information contained in this section may have been updated after the patient was seen, as this information can be updated by other users. Medical History Claudication Dyspnea Chest pain PAF (paroxysmal atrial fibrillation) Family History Mother Diabetes CHF (congestive heart failure) Father Cancer Social History Smoking Status: Never smoker alcohol intake: never substance use type: denies use current occupational status: other Travel in the last 8 weeks: None Have you lived/traveled outside US in past 30 days?: No Contact w/someone who lives/traveled outside US past 30 days?: No Exposure to someone with infectious disease in past 14 days?: No Do you have a fever (greater than 100.4 F or 38 C)?: No Have you tested positive for COVID-19: No Exposed to someone with COVID-19 in past 14 days?: No Do you have a sore throat?: No Do you have a cough?: No Do you have any weakness?: No Do you have any diarrhea?: No Are you experiencing any unusual bleeding?: No Do you have any muscle aches/pain?: No Do you have any abdominal pain?: No Are you experiencing loss of taste or smell?: No PM Subjective & Objective Subjective Subjective:: Patient is a pleasant 74-year-old female who presents today for follow-up of x-ray imaging of her lumbar spine. Patient does rate her pain today at a 5 out of 10. She denies any new trauma or injury. Patient does state that she still has the chronic low back pain that does go into her legs. Patient does state that she has continued physical therapy and that they did do some dry needling however it did not make any additional improvement. Patient does state that they did try again the traction but seem like the last 2 times have aggravated her symptoms. Patient does state that she is scheduled for her MRI this afternoon at 230. Patient does state that she is still trying to decide whether or not if surgical intervention is her best bet. Patient states that she does not want to wait too long to where it is harder for her to recover from surgery. Patient is currently managed with pregabalin 50 mg at bedtime. She is asking whether or not if we think it would be beneficial to increase it to twice a day. Patient does also get ropinirole 0.25 mg at bedtime from our office. Her Octavio has been reviewed and is appropriate. Review of Systems: General: No recent weight changes, no fever, no sleep disturbances Respiratory: No cough, no shortness of air, no recurring pulmonary infections Cardiovascular/peripheral vascular: No chest pain, no palpitations, no edema, no shortness of breath Gastrointestinal: No new onset incontinence, normal bowel movements reported Genitourinary: No new onset incontinence Musculoskeletal: Low back pain, bilateral leg pain Psychiatric: [Normal mood/affect] Neurological: [Denies weakness in extremities], [denies balance issues] Pain at rest (0-10 scale): 5 Objective Objective:: Physical Exam: General: Alert and oriented x3, no acute distress, pleasant and cooperative Lungs: Respirations even and unlabored, symmetrical chest expansion Eyes: PERRL Musculoskeletal: Flexion and extension of lumbar [spine] somewhat guarded secondary to pain, [antalgic gait noted] Neurological: Speech clear, no gross sensory deficit Has patient had previous pain injection?: No Conservative treatment options previously tried: Home exercise plan Length of treatment: Longer than 12-week and Physical Therapy Length of treatment: Ongoing Meds Home Medications and Allergies Home Medications ?Medication ?Instructions ?Recorded ?Confirmed ?Type clonidine HCl 0.1 mg tablet 0.1 mg PO BID 06/23/22 08/01/24 History ergocalciferol (vitamin D2) 1,250 1,250 mcg PO WEEKLY 06/23/22 08/01/24 History mcg (50,000 unit) capsule escitalopram oxalate 20 mg tablet 20 mg PO DAILY 06/23/22 08/01/24 History esomeprazole magnesium 40 mg 40 mg PO DAILY 06/23/22 08/01/24 History capsule,delayed release meloxicam 15 mg tablet 15 mg PO DAILY 06/23/22 08/01/24 History nitroglycerin 0.4 mg sublingual 0.4 mg sublingual Q5-15M PRN Chest 06/23/22 08/01/24 History tablet Pain ropinirole 0.25 mg tablet 0.25 mg PO HS #30 tabs 11/29/23 08/01/24 Rx pregabalin 50 mg capsule 50 mg PO HS #14 caps 01/25/24 08/01/24 Rx pregabalin 50 mg capsule 50 mg PO HS #30 caps 07/29/24 08/01/24 Rx New Prescriptions to Start Prescriptions: Allergies Allergy/AdvReac Type Severity Reaction Status Date / Time codeine AdvReac unkn Verified 06/25/24 13:35 iodine AdvReac unkn' Verified 06/25/24 13:35 Assessment and Plan *Assessment and plan (1) Lumbar spinal stenosis: Status: Acute Qualifiers: Neurogenic claudication status: with neurogenic claudication Qualified Code(s): M48.062 - Spinal stenosis, lumbar region with neurogenic claudication Category: Medical Code(s): M48.061 - Spinal stenosis, lumbar region without neurogenic claudication (2) Degenerative disc disease, lumbar: Status: Acute Category: Medical Code(s): M51.369 - Other intervertebral disc degeneration, lumbar region without mention of lumbar back pain or lower extremity pain (3) Bilateral knee pain: Status: Acute Qualifiers: Chronicity: chronic Qualified Code(s): M25.561 - Pain in right knee; M25.562 - Pain in left knee; G89.29 - Other chronic pain Category: Medical Code(s): M25.561 - Pain in right knee; M25.562 - Pain in left knee Plan I did discuss with the patient that I will send in the pregabalin twice a day and try this over the next couple of weeks. Patient is scheduled for her MRI later on this afternoon so I did guidance counselor her that I will have her back next week to review over the findings. Patient agrees with this plan of care. Patient has been instructed to contact the clinic with any concerns before the next appointment. Dr. Izquierdo has reviewed this note and agrees with this plan of care. This note was dictated using voice recognition software and make contain errors or omissions. All injections are used with Lidocaine, Bupivacaine and Depo Medrol. Occasionally urine drug screen is needed to verify patient's compliance with our office pain contract. This is ordered based off specific treatments related to chronic pain with the potential to abuse certain medications.
--- OUTSIDE RECORDS SUMMARY | 2024-08-01 23:26 | XMS_ITS | Data Portability ---
Author Organization [facility] Address [address] [place] [address] Care Team Providers Care Operations Lieutenant Name Role Phone ELISHA LEWISYESENIAJhonny Primary Care Provider Assessment Encounter Date Assessment Date Assessment LastModified by Organization Details LastModified Time 11/09/2023 11/09/2023 ASSESSMENT: Ms. Joshi Is a 73-year-old female with a history of scoliosis, arthritis, and hard of hearing (hearing aids use) coming today as a new patient for evaluation of lower back pain with right leg radiculopathy. She brings an MRI lumbar taken on 09/13/2023 from [facility] and uploaded to PACS. 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 She describes her pain as constant 5/10 starting in lower back radiating down to buttocks, posterior thigh and lower leg with numbness and tingling on the front of the leg from upper thigh to toes. She has done two round of injections with pain management at [facility] with Dr. Izquierdo. The first one helped her for about 6 weeks but the second one only lasted about a day. She has also been doing PT with chiropractor visits 3 times a week with no significant resolution of pain. She takes mobic daily. Patient denies any bowel or bladder control issues, no saddle paresthesias. Dr. Gonzalez believes patient is a candidate for L4-5, L5-S1 laminectomy with possible discectomy and right L4-[address] Gonzalez described surgical intervention in detail with the use of a spinal model., recovery time, risks, and benefits of surgery have also been explained. He would like to get an EMG of bilateral lower extremities as well as flex/ext x-rays of lumbar spine to assess for instability before moving forward with surgery. Patient will follow up with our office after studies. Patient verbalized understanding and is agreeable to this plan. Patient has no further questions or concerns at this time and is satisfied with this plan of care. Patient seen by surgeon and myself. IMAGING: I personally reviewed the images with Dr. Gonzalez and read the radiologist report. MRI lumbar taken on 09/13/2023 from [facility] and uploaded to PACS. Right paracentral disc protrusion at L4-4 With mild compromise of the right lateral recess. Neural foraminal compromise, most evident on the left at L4-5 and L5-S1 PLAN: EMG of bilateral lower extremities as well as flex/ext x-rays of lumbar spine to assess for instability before moving forward with surgery. Compound cream. [email or web address] Not available 11/09/2023 11:13:07 01/15/2024 01/15/2024 Assessment: Ana Lilia Joshi is a 73-year-old presenting to the clinic for imaging follow-up for right lower extremity pain. Patient presents with completed flexion/extension x-rays on 11/09/2023 and lower extremity EMG on 11/22/2023 through [facility]. Patient reports her symptoms are unchanged since her last appointment on 11/09/2023. Patient notes pain to lateral right hip with radiation to lateral lower extremity with termination to lateral foot. On review of imaging with correlation of symptoms and EMG, patient is a candidate for MIS right L4-5 and L5-S1 decompression with possible discectomy. Dr. Gonzalez outlined the procedure in detail and explained there are no critical findings on her MRI that indicate she has to proceed with the surgery at this time if she can tolerate her symptoms with help of conservative management. Patient is not keen on surgery at this time and will call with decision should she like to proceed. Patient and family are aware an updated MRI and/or return to office visit may be needed if enough time has lapsed. Imaging: I personally reviewed the imaging with Dr. Gonzalez and discussed the below findings. Patient underwent both lumbar flexion/extension x-rays (11/09/2023) and lower extremity EMG (11/22/2023) through [facility] to reveal stable L1-2 spondylolisthesis in addition to mild early right S1 radiculopathy. Plan: Follow-up as needed Patient candidate for MIS right L4-5 and L5-S1 decompression with possible discectomy, though will call with decision. [email or web address] Not available 01/15/2024 10:55:42 Plan of Treatment Reminders Order Date Submit Date Provider Last Modified By Organization Details Last Modified Time Details Appointments None record ed. Lab None record ed. Referral None record ed. Procedures None record ed. Surgeries None record ed. Imaging None record ed. Medication Orders None record ed. Patient TargetsNo targets recorded. Patient InstructionsNo instructions recorded. Reason for Referral None Reported. Results Created Date Observation Date Name Description Value Unit Range Abnormal Flag Note LastModifiedBy Organization Detail LastModifiedTime 11/09/19 24 11/09/2023 XR, lumbo sacra l spine , 2 or 3 view, bendi ng only [address] [address] Krystyna chadwick Name: DEANNA chadwick : [address] Krystyna chadwick 75 Orderi ng Provid er: MIAN GONZALEZ EXAM DATE: 2023 EXAM: XR LUMBAR SPINE FLEX/E XT ONLY HISTOR Y: Low back pain COMPAR DIYA: None. 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 This is stable with flexio n and extens ion. There is mild to modera te anteri or margin al spurri ng and loss of interv ertebr al disc height . No fractu re is identi fied. IMPRES RUFUS: 1. There are mild to modera te degene rative change s in the lumbar spine. Interp reted By: Elton turcios MD Electr onical ly Signed By: Elton turcios MD on 024 10:46 AM [email or web address] [facility] [address], [address], 11/30/2023 11:13:52 11/13/19 24 09/13/2023 XR, lumbo sacra l spine , 2 or 3 view No observ ation record ed. BARCODE Not Available 2023 11:39:46 11/23/19 24 11/22/2023 nerve condu ction study /EMG, lower extre mity (PROC ) No observ ation record ed. [email or web address] Edgar Mak MD [address] [place], [address], 12/26/2023 08:31:22 Result Notes None recorded. Procedures Surgical History Date Name Laterality Status Provider Name and Address Organization Details Recorded Time 11/22/19 Electromyography (EMG) with Nerve Conduction Study (NCV) completed Freya Martin (Nicky) [facility] 11/22/2023 16:48:49 Imaging Results Imaging Date Name Status LastModified by Organiz ation Details LastModified Time 11/09/2023 XR, lumbosacral spine, 2 or 3 view, bending only completed [email or web address] [facility] [address] [place] [address], [id number], 11/30/2023 11:13:52 09/13/2023 XR, lumbosacral spine, 2 or 3 view completed BARCODE Information not available 11/13/2023 11:39:46 11/22/2023 nerve conduction study/EMG, lower extremity (PROC) completed [email or web address] Edgar Mak MD [facility] [place], [address], 12/26/2023 08:31:22 Procedure Notes None recorded. Medical Equipment None Reported. Allergies Allergen ID Allergen Name Allergen Category Reaction Reaction Severity Criticality Documentation Date Start Date Code Code System Note Provider Name and Address Organization Details Recorded Time 760151 codeine medicatio n Not available Not available Not available 11/09/2023 2670 RxNorm Alyssa Isamar [facility], [facility] 4 08:44:31 [id number] Betadine medicatio n Not available Not available Not available 11/09/2023 00232 0 RxNorm Alyssa Isamar [facility], [facility] 4 08:44:48 Medications Name Sig Start Date Stop Date Status Note LastModified by Organization Details LastModified Time Compound Rx Alternative s Neuropathic Pain Cream Apply 1-2 gms (1-2)pump s) to affected area 3 time a day 2023 active Not Available Not Available Not Avai lable amoxicillin 500 mg capsule TAKE (1) CAPSULE BY MOUTH TWICE DAILY. 11/08 completed Not Available Not Available Not Available clonidine HCl 0.1 mg tablet TAKE (1) TABLET BY MOUTH TWICE A DAY. active Not Available Not Available No t Available ibuprofen 800 mg tablet TAKE 1 TABLET EVERY 6-8 HOURS active Not Available Not Available No t Available meloxicam 15 mg tablet TAKE 1 TABLET BY MOUTH ONCE DAILY active Not Available Not Available No t Available prednisone 20 mg tablet TAKE (1) TABLET BY MOUTH TWICE A DAY. active Not Available Not Available No t Available penicillin V potassium 500 mg tablet TAKE 1 TABLET FOUR TIMES DAILY UNTIL ALL ARE TAKEN active Not Available Not Available No t Available ropinirole 0.25 mg tablet TAKE 1 TABLET BY MOUTH 1-3 HOURS BEFORE BEDTIME. active Not Available Not Available No t Available cephalexin 500 mg capsule TAKE (1) CAPSULE BY MOUTH TWICE DAILY FOR 7 DAYS active Not Available Not Available No t Available erythromyci n 5 mg/gram (0.5 %) eye ointment APPLY 1 CM RIBBON INTO THE LOWER CONJUNCTI ORESTES SAC(S) IN THE AFFECTED EYE(S) BY OPHTHALMI C ROUTE 2 TIMES PER DAY active Not Available Not Available No t Available esomeprazol e magnesium 40 mg capsule,del ayed release TAKE (1) CAPSULE BY MOUTH ONCE A DAY. active Not Available Not Available No t Available montelukast 10 mg tablet TAKE 1 TABLET BY MOUTH ONCE A DAY. active Not Available Not Available No t Available levofloxaci n 500 mg tablet TAKE 1 TABLET BY MOUTH ONCE A DAY. active Not Available Not Available No t Available methylpredn isolone 4 mg tablets in a dose pack TAKE 6 TABS ON DAY 1, TAKE 5 TABS ON DAY 2, TAKE 4 TABS ON DAY 3, TAKE 3 TABS ON DAY 4, TAKE 2 TABS ON DAY 5, TAKE 1 ON DAY 6. TAKE WITH FOOD. active Not Available Not Available No t Available fluticasone propionate 50 mcg/actuati on nasal spray,suspe nsion USE 1 SPRAY IN EACH NOSTRIL ONCE DAILY active Not Available Not Available No t Available escitalopra m 20 mg tablet TAKE 1 TABLET BY MOUTH ONCE A DAY. active Not Available Not Available No t Available Premarin 0.625 mg/gram vaginal cream INSERT 0.5 APPLICATO RFUL EVERY DAY BY VAGINAL ROUTE. active Not Available Not Available No t Available ORTHOVISC 30 mg/2 mL intra-artic ular syringe active Not Available Not Available Not Available Mounjaro 2.5 mg/0.5 mL subcutaneou s pen injector INJECT 0.25 MG UNDER THE SKIN ONCE WEEKLY. active Not Available Not Available No t Available Ozempic 0.25 mg or 0.5 mg (2 mg/3 mL) subcutaneou s pen injector INJECT 0.25MG SUB-Q ONCE A WEEK FOR 4 WEEKS, THEN INCREASE TO 0.5MG ONCE A WEEK. active Not Available Not Available No t Available Vitals Date Recorded Body height Body mass index (BMI) Body weight Systolic blood pressure Diastolic blood pressure Provider Name and Address Organization Details Last Updated DateTime 11/09/2023 162.56 cm 29.7 kg/m2 86981.48 g 122 mm[Hg] 82 mm[Hg] [facility] 4 08:44:15 Date Recorded Body height Body mass index (BMI) Body weight Systolic blood pressure Diastolic blood pressure Provider Name and Address Organization Details Last Updated DateTime 01/15/2024 162.56 cm 29.7 kg/m2 98981.48 g 122 mm[Hg] 80 mm[Hg] [facility] 4 09:44:59 Social History None recorded. Functional Status None recorded. Mental Status None recorded. Family History Relationship Description Onset Age of this Age Resolved Age Notes LastModified by Organization Details LastModified Time Father Leukemia (morphologic abnormality) [email or web address] Not available 08:40:13 Unspecified Relation Diabetes mellitus [email or web address] Not available 11/08 08:40:19 Medical History Condition Response Arthritis Y Osteoporosis/Osteopenia Y Gynecological HistoryNo gynecological history recorded. Obstetrics History GPAL:G 0 P 0 0 0 0 Past Encounters Encounter ID Performer Location Encounter Start Date Encounter Closed Date Diagnosis/Indication Diagnosis SNOMED-CT Code Diagnosis ICD10 Code Diagnosis Note [id number] PATI CAMPOVERDE, RN [facility] [address] [place] [address] 11/09/2023 08:31:32 11/10/2023 04:05:57 Lumbar spondylosis 673005947 M47.896 Lumbar radiculopathy 128 481986 M54.16 Scoliosis deformity of spine 594783292 M41.9 [id number] Freya OlgaShannanAlannah Martin [facility] [address] [place] [address] 11/22/2023 15:13:53 11/28/2023 14:22:40 Chronic low back pain 259465248 M54.50 Pain in ri ght lower limb 149183160 M79.604 Paresthesi a of lower extremity 482371331 R20.2 [id number] SHAHEED HUYNH PA-C [facility] [address] [place] [address] 01/15/2024 09:25:44 01/16/2024 04:41:48 Lumbar radiculopathy 836884282 M54.16 Health Concerns Section Related Observation LastModified by Organization Detai ls LastModified Time None Recorded Concern Status LastModified by Organization Details LastModified Time None Recorded Advance Directives Directive None Recorded Payers Encounter Date Sequence Insurance Name Policy Number Policy Wright Covered Member ID Wright Member ID Guarantor Name 11/09/2023 1 [employer] (MEDICARE REPLACEMENT/A DVANTAGE - PPO) Deanna Butch Joshi [id number] Deanna Joshi 11/22/2023 1 [employer] (MEDICARE REPLACEMENT/A DVANTAGE - PPO) Deanna Joshi [id number] Deanna Joshi 01/15/2024 1 [employer] (MEDICARE REPLACEMENT/A DVANTAGE - PPO) Deanna Joshi [id number] Deanna Joshi Notes Date Note Type Note Provider Name and Address Organization Details Recorded Time 11/09/2023 text/html Ms. Joshi Is a 73-year-old female with a history of scoliosis, arthritis, and hard of hearing (hearing aids use) coming today as a new patient for evaluation of lower back pain with right leg radiculopathy. She brings an MRI lumbar taken on 09/13/2023 from [facility] and uploaded to PACS. 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 She describes her pain as constant 5/10 starting in lower back radiating down to buttocks, posterior thigh and lower leg with numbness and tingling on the front of the leg from upper thigh to toes. She has done two round of injections with pain management at [facility] with Dr. Izquierdo. The first one helped her for about 6 weeks but the second one only lasted about a day. She has also been doing PT with chiropractor visits 3 times a week with no significant resolution of pain. She takes mobic daily. She is concern as her symptoms continue to worsen and would like a professional opinion for surgical intervention. PATI CAMPOVERDE APRN [address] [place], [address], [facility] 11/09/2023 11:14:02 01/15/2024 text/html Deanna Joshi is a 73-year-old presenting to the clinic for imaging follow-up for right lower extremity pain. Patient presents with completed flexion/extension x-rays on 11/09/2023 and lower extremity EMG on 11/22/2023 through [facility]. Patient reports her symptoms are unchanged since her last appointment on 11/09/2023. Patient notes pain to lateral right hip with radiation to lateral lower extremity with termination to lateral foot. Patient notes accompanied numbness and paresthesia along the same distribution. Patient characterizes her pain as a deep ache/soreness and reports it is most prominent at night or with standing. 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 Patient reports some pain improvement with Motrin/Tylenol. Patient denies physical therapy. Patient has underwent [address] Gutiérrez for low back, and most recently injections to SI joints without lasting relief. Patient was seen by both Dr. Gonzalez and Renetta in clinic today SHAHEED HUNYH PA-C [address] [place], [address], [facility] 01/15/2024 10:55:57 OBGyn Episode No OBEpisode recorded.
--- OUTSIDE RECORDS SUMMARY | 2024-08-01 23:27 | XMS_ITS | Data Portability ---
Author Organization 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 It was prolonged and over 2 hours. At that point, she had ruled out for myocardial infarction. Enzymes were negative x3. EKG with no acute changes. She was chest pain-free after the initial episode. She has not had any further chest pain since that time. The EKG shows normal sinus rhythm with no ST or T-wave changes. She is very active. Gets some shortness of breath with over exertion but no further episodes of chest pain or pressure. She does have hypertension and is on medication for this. She would benefit from an echocardiogram and an exercise treadmill. We will set her up for these. Monitor blood pressure and heart rate. Continue all other medications. Follow up after tests are completed Continue current medications Risk factor modification Recommend LDL of less than 100 in this patient with risk factors for coronary disease Blood work as per Primary Care Echocardiogram Exercise treadmill Follow-up after tests are complete in 3-4 weeks elohman Not available 06/21/2022 12:02:17 Plan of Treatment Reminders Order Date Submit Date Provider Last Modified By Organization Details Last Modified Time Details Appointments None recorded. Lab None recorded. Referral None recorded. Procedures None recorded. Surgeries None recorded. Imaging exercise stress test 2022 023 1 [place] (Centralized Scheduling), [address] [place] [address] , [place], [address], 3 07:54:36 electrocard iogram [address] [facility], [address] [place] [address] [address], [place], [address], 3 07:11:27 US, echocardiog desiree, transthorac ic, complete, w/ color flow 2022 023 [id number] 1 [place] (Centralized Scheduling), [address] [place] [address] , [place], [address], 3 07:54:44 Medication Orders None recorded. Patient TargetsNo targets recorded. Patient InstructionsNo instructions recorded. Reason for Referral None Reported. Results Created Date Observation Date Name Description Value Unit Range Abnormal Flag Note LastModifiedBy Organization Detail LastModifiedTime 06/21/19 elect rocar diogr am No observ ation record ed. [address], [place], [address], 06/21/2022 15:59:19 06/21/19 23 06/21/2022 elect rocar diogr am No observ ation record ed. Not Available 2022 16:00:37 Result Notes None recorded. Problems Name Problem SNOMED Code Status Onset Date Resolution Date Notes Provider Name and Address Organization Details Recorded Time Sensorineural hearing loss 08530169 Active 2022 JV KLEIN [facility] [employer] [facility],[address] [place] [address], [address], [place] - [facility] - [place] & [place] 3 13:37:06 Tight chest 78397936 Active 2022 Gerry Robert MD [facility] [employer] [facility],[address], [place], [address], [place] - [facility] - [place] & [place] 3 11:59:35 Essential hypertension 03221271 Active 2022 Gerry Robert MD [facility] [employer] [facility],[address], [address], [place] - [facility] & [place] 3 11:59:39 Dyspnea on exertion 46412881 Active 2022 Gerry Robert MD [address] [place] [address],[address], [address], [place] - [facility] & [place] 3 11:59:43 Diastolic dysfunction 0604053 Active 2022 Gerry Robert MD [address] [place] [address],[address], [address], [place] - [facility] & [place] 3 12:00:52 Gastroesophage al reflux disease without esophagitis 469244931 Active 2022 Gerry Robert MD [address] [place] [address],[address], [address], [place] - [facility] & [place] 3 12:00:58 Problem Notes None recorded. Procedures Surgical History None recorded. Imaging Results Imaging Date Name Status LastModified by Organization Details LastModified Time 06/21/2022 electrocardiogram completed [address], [place], [address], 06/21/2022 15:59:19 06/21/2022 electrocardiogram completed Informa tion not available 06/21/2022 16:00:37 Procedure Notes None recorded. Medical Equipment None Reported. Allergies Allergen ID Allergen Name Allergen Category Reaction Reaction Severity Criticality Documentation Date Start Date Code Code System Note Provider Name and Address Organization Details Recorded Time 61216 hydrocodo ne Not available vomiting severe Not available 06/21/2022 5489 RxNorm Denise rodriguez, [place] - [facility] & [place] 3 15:56:41 21145 Betadine medicatio n itching severe Not available 06/21/2022 35456 0 RxNorm Denise rodriguez, [place] - [facility] & [place] 3 15:56:41 Medications Name Sig Start Date Stop Date Status Note LastModified by Organization Details LastModified Time amoxicillin 500 mg capsule TAKE (1) CAPSULE BY MOUTH TWICE DAILY. active Not Available Not Available No t Available clonidine HCl 0.1 mg tablet TAKE ONE TABLET BY MOUTH 2 TIMES DAILY. active Not Available Not Available No t Available clindamycin HCl 300 mg capsule TAKE (1) CAPSULE BY MOUTH TWICE DAILY. active Not Available Not Available No t Available azithromyci n 250 mg tablet TAKE 2 TABLETS BY MOUTH THE 1ST DAY, THEN TAKE 1 TABLET BY MOUTH EVERY DAY FOR 4 DAYS 06/21 completed Not Available Not Available Not Available ibuprofen 800 mg tablet TAKE 1 [...] Not Available Not Available No t Available aspirin 81 mg tablet,terra yed release Take 1 tablet every day by oral route as directed. active Not Available Not Available No t Available cephalexin 500 mg capsule TAKE (1) CAPSULE BY MOUTH TWICE DAILY FOR 7 DAYS active Not Available Not Available No t Available esomeprazol e magnesium 40 mg capsule,del ayed release TAKE (1) CAPSULE BY MOUTH ONCE A DAY. active Not Available Not Available No t Available nitroglycer in 0.4 mg sublingual tablet DISOLVE IN MOUTH NEEDED FOR CHEST PAIN. active Not Available Not Available No t Available omeprazole 20 mg capsule,del ayed release TAKE (1) CAPSULE BY MOUTH ONCE A DAY. 06/21 completed Not Available Not Available Not Available montelukast 10 mg tablet TAKE 1 TABLET BY MOUTH ONCE A DAY. active Not Available Not Available No t Available ergocalcife rol (vitamin D2) 1,250 mcg (50,000 unit) capsule TAKE 1 CAPSULE BY MOUTH ONCE A WEEK. active Not Available Not [...] Not Available Not Available No t Available hydroxyzine HCl 10 mg tablet TAKE (1) TABLET BY MOUTH TWICE A DAY NEEDED. 06/21 completed Not Available Not Available Not Available cefdinir 300 mg capsule TAKE (1) CAPSULE BY MOUTH TWICE DAILY. 06/21 completed Not Available Not Available Not Available fluticasone propionate 50 mcg/actuati on nasal [...] active Not Available Not Available Not Available levocetiriz ine 5 mg tablet TAKE 1 TABLET BY MOUTH [...] height Body mass index (BMI) Body weight Oxygen saturation Oxygen saturation in Arterial blood by Pulse oximetry Heart rate Systolic blood pressure Diastolic blood pressure Provider Name and Address Organization Details Last Updated DateTime 3 157.48 cm 32.1 kg/m2 97846.1 g 98 % 98 % 66 /min 140 mm[Hg] 86 mm[Hg] Denise SIDHU [facility] & [place] 15:56:25 Social History Question Answer Notes LastModified by Organizat ion Details LastModified Time Tobacco Smoking Status Never Smoker Denise rodriguez [facility] & [place] 06/21/2022 15:56:57 What Is Your Level Of Alcohol Consumption? None Information not available 06/21/2022 What Was The Date Of Your Most Recent Tobacco Screening? 06/21/2022 Information not available 06/21/2022 Are You Passively Exposed To Smoke? No Information no t available 06/21/2022 Do You Or Have You Ever Used Smokeless Tobacco? Never Used Smokeless Tobacco Information not available 06/21/2022 Do You Use Any Illicit Or Recreational Drugs? No Information not available 06/21/2022 Sex: Female Functional Status Question Answer Note LastModified by Organization D etails LastModified Time What is your exercise level? Moderate Information not available 06/21/2022 Mental Status None recorded. Family History Relationship Description Onset Age of this Age Resolved Age Notes LastModified by Organization Details LastModified Time Mother Diabetes mellitus Not available 2022 15:58:35 Mother Heart disease Not available 2022 15:58:42 Medical History Condition Response Shortness of Breath Y Hypertension Y Gynecological HistoryNo gynecological history recorded. Obstetrics History GPAL:G 0 P 0 0 0 0 Past Encounters Encounter ID Performer Location Encounter Start Date Encounter Closed Date Diagnosis/Indication Diagnosis SNOMED-CT Code Diagnosis ICD10 Code Diagnosis Note [id number] JV KLEIN [address] [place] [address] 8 06/14/2022 13:23:13 06/14/2022 13:23:55 Sensorineural hearing loss 96134640 H90.3 [id number] Gerry Robert MD [address] [place], [place] [phone] 06/21/2022 10:48:53 06/21/2022 11:57:44 Tight chest 06102646 R07.89 Essential hypertension 09349754 I10 Dyspnea on exertion 6084 5006 R06.09 Diastolic dysfunction 35 00198 I51.9 Gastroesop hageal reflux disease without esophagitis 410145386 K21.9 [id number] JV KLEIN [facility] [address] [place], [place] [phone] 08/08/2022 13:08:23 08/08/2022 13:30:52 Sensorineural hearing loss 84849644 H90.3 [id number] JV KLEIN [facility] [address] [place] [address] 09/05/2022 13:47:56 09/05/2022 14:12:54 Sensorineural hearing loss 88812524 H90.3 [id number] JV KLEIN [facility] [address] [place] [id number] 10/17/2022 13:07:00 10/17/2022 13:25:54 Sensorineural hearing loss 20936650 H90.3 [id number] JV KLEIN [facility] [address] [place] [id number] 09/11/2023 11:47:40 09/11/2023 11:54:21 Sensorineural hearing loss 73133254 H90.3 Health Concerns Section Related Observation LastModified by Organization Detai ls LastModified Time None Recorded Concern Status LastModified by Organization Details LastModified Time None Recorded Advance Directives Directive None Recorded Payers Encounter Date Sequence Insurance Name Policy Number Policy Wright Covered Member ID Wright Member ID Guarantor Name 06/21/2022 1 [employer] (MEDICARE REPLACEMENT/ADVAN TAGE - PPO) Deanna E Jose M [id number] Deanna E Jose M 08/08/2022 1 [employer] (MEDICARE REPLACEMENT/ADVAN TAGE - PPO) Deanna E Jose M [id number] Deanna E Jose M 09/05/2022 1 [employer] (MEDICARE REPLACEMENT/ADVAN TAGE - PPO) Deanna E Jose M [id number] Deanna E Jose M 10/17/2022 [employer] Deanna E Jose M JOSE M DEANNA JOSEM DEANNA Deanna E Jose M 09/11/2023 1 [employer] (MEDICARE REPLACEMENT/ADVAN TAGE - PPO) Deanna E Jose M [id number] Deanna E Jose M Notes Date Note Type Note Provider Name and Address Organization Details Recorded Time 06/21/2022 text/html severe episode o f chest pain that lasted approximately 2 hours. It was pressure and tight located in the epigastric and lower sternal region. Heavy. Shortness of breath associated but no nausea or diaphoresis. It was prolonged and then resolved gradually. She has not had any further pain. Occurred at rest. Did not appear to be spurt on by exertion Gerry Robert MD [address] [facility],[address], [place], [address], [facility] - [facility] & [place] 06/22/2022 07:12:56 08/08/2022 text/html Ms. Joshi was seen today for a hearing aid service. Cleaned hearing aids. Decreased high freq gain. F/u prn JV KLEIN [address], [place], [address], [place] - [facility] & [place] 08/08/2022 13:47:28 09/05/2022 text/html Ms. Joshi was seen today for a hearing aid service. Cleaned hearing aids. Decreased high freq gain. F/u prn JV KLEIN [address], [place], [address], [facility] - [facility] & [place] 09/05/2022 14:13:38 10/17/2022 text/html Ms. Joshi was seen today for a hearing aid fitting via vocational rehabilitation. She was fit with [employer] Moxi B7-R HAYDE hearing aids bilaterally. F/u prn. JV KLEIN [address], [place], [address], [place] - [facility] & [place] 10/17/2022 13:28:09 09/11/2023 text/html Patient was seen today for a hearing aid service. Cleaned and adjusted hearing aids this date. JV KLEIN [address], [place], [address], [place] - [facility] & [place] 09/11/2023 11:55:17 OBGyn Episode No OBEpisode recorded.
--- OUTSIDE RECORDS SUMMARY | 2024-08-01 23:27 | XMS_ITS | Data Portability ---
Author Organization [facility],, Main Office Address [address] [place] [address] Assessment Encounter Date Assessment Date Assessment LastModified by Organization Details LastModified Time 01/02/2024 01/02/2024 Annual gynecological exam performed. Patient will come back in a year unless there are new symptoms. jamison Not available 01/02/2024 09:37:13 Plan of Treatment Reminders Order Date Submit Date Provider Last Modified By Organization Details Last Modified Time Details Appointments None recorded. Lab urinalysi s, dipstick 2023 024 [facility] Main Office, [address], [place], [address], 4 20:29:52 urinalysi s, dipstick 2023 024 [facility] Main Office, [address], [place], [address], 4 12:03:13 urinalysi s, dipstick 2022 023 [facility] Main Office, [address], [place], [address], 3 21:53:21 urinalysi s, dipstick 2021 022 [facility] Main Office, [address], [place], [address], 3 18:14:59 urinalysi s, dipstick 2020 021 [facility] Main Office, [address], [place], [address], 15:11:38 Referral None recorded. Procedures None recorded. Surgeries None recorded. Imaging None recorded. Medication Orders Premarin 0.625 mg/gram vaginal cream 2023 024 [facility], [address] [place], [address], 10:38:52 Patient TargetsNo targets recorded. Patient Instructions Encounter Date Encounter Id Patient Instructions Last Modified By Organization Details Last Modified Time 03/22/2021 [id number] uterine fibroids : care instructions [facility] Not available 03/22/2021 15:11:38 04/06/2022 [id number] back care and preventing injuries: care instructions [facility] Not available 04/25/2022 18:14:59 getting back to normal after low back pain: care instructions [facility] Not available 04/25/2022 18:14:59 learning about relief for back pain [facility] Not available 04/25/2022 18:14:59 uterine fibroids : care instructions [facility] Not available 04/25/2022 18:14:59 Discussed result s from ultrasound, questions answered and addressed. ??All areas reviewed. [facility] Not available 04/25/2022 18:14:10 05/03/2022 [id number] Lengthy discussion, recommended second opinion from breast center. Reviewed medical records from outside hospital [facility] Not available 05/03/2022 21:53:09 01/02/2024 [id number] discussed hrt, annual mammorgram, monitoring fibroid Failure to follow up discussed [facility] Not available 02/10/2024 20:09:19 03/12/2024 [id number] uterine fibroids : care instructions [facility] Not available 04/14/2024 20:29:52 Reason for Referral None Reported. Results Created Date Observation Date Name Description Value Unit Range Abnormal Flag Note LastModifiedBy Organization Detail LastModifiedTime 03/04/2003/08/2021 PAP TEST THIN PREP Pap test thin prep NEGATI VE FOR INTRAE PITHEL IAL LESION OR MALIGN DESIRAE normal ACCES RUFUS #: [id number] Sourc e: Cervi meri/E ndoce rvica l LMP: registered pharmacist Date Taken : 03/04 Speci men Type: ThinP rep Vial Date Repor denise: 03/08 Clini meri Data: Last Pap: wnl (828 2018) Cytot ech: Shaylee cannon, CT( CP) Date Repor denise: 03/08 Speci men Adequ acy: Satis facto ry for evalu ation Gener al Categ oriza tion: NEGAT EFREN FOR INTRA EPITH ELIAL LESIO N OR MALIG SASHA Inter preta tion/ Resul t: Atrop hy This speci men has been christopher zed by the ThinP rep Imagi ng Syste m, an inter activ e compu ter syste m which [facility] ThinP rep Pap Test slide s. Follo wing imagi ng, the slide was revie wed by a Cytot echno logis t and/o r Patho logis t. End of Repor t Techn ical servi tati provi ded by [facility]is [employer], [employer], d/b/a PathAnuradha hernandez, [address] [place] [address] Cornell Powell MD, Labor atory Direc tor. Case revie wed and diagn osis rende red at [facility] iated Patho logis [employer], [facility], d/b/a Mason hernandez, [address] [place] [address] Cornell Powell MD, Labor atory Direc tor. CONFI DENTI AL Not Available [facility]) [address], [place], [address], 03/08/2021 13:47:58 03/04/20 21 03/04/2021 urina lysis , dipst ick Leukocytes - Not Available Main Of fice [address], [place], [address], 03/04/2021 14:56:27 03/04/20 21 03/04/2021 urina lysis , dipst ick Nitrite negati ve Not Available Main Office [address], [place], [address], 03/04/2021 14:56:27 03/04/20 21 03/04/2021 urina lysis , dipst ick Urobilinogen - Not Available Main Office [address], [place], [address], 03/04/2021 14:56:27 03/04/20 21 03/04/2021 urina lysis , dipst ick Protein - Not Available Main Offic e [address], [place], [address], 03/04/2021 14:56:27 03/04/20 21 03/04/2021 urina lysis , dipst ick pH 5.0 Not Available Main Offic e [address], [place], [address], 03/04/2021 14:56:27 03/04/20 21 03/04/2021 urina lysis , dipst ick Blood - Not Available Main Offic e [address], [place], [address], 03/04/2021 14:56:27 03/04/20 21 03/04/2021 urina lysis , dipst ick Specific [place] 1.030 Not Available Main O ffice [address], [place], [address], 03/04/2021 14:56:27 03/04/20 21 03/04/2021 urina lysis , dipst ick Ketone trace Not Available Main Offic e [address], [place], [address], 03/04/2021 14:56:27 03/04/20 21 03/04/2021 urina lysis , dipst ick Bilirubin - Not Available Main Off ice [address], [place], [address], 03/04/2021 14:56:27 03/04/20 21 03/04/2021 urina lysis , dipst ick Glucose - Not Available Main Offic e [address], [place], [address], 03/04/2021 14:56:27 03/04/20 21 03/04/2021 urina lysis , dipst ick Appearance - Not Available Main Of fice [address], [place], [address], 03/04/2021 14:56:27 03/04/20 21 03/04/2021 urina lysis , dipst ick Color - Not Available Main Offic e [address], [place], [address], 03/04/2021 14:56:27 03/22/20 21 03/22/2021 urina lysis , dipst ick Leukocytes - Not Available Main Of fice [address], [place], [address], 03/22/2021 14:17:38 03/22/20 21 03/22/2021 urina lysis , dipst ick Nitrite negati ve Not Available Main Office [address], [place], [address], 03/22/2021 14:17:38 03/22/20 21 03/22/2021 urina lysis , dipst ick Urobilinogen - Not Available Main Office [address], [place], [address], 03/22/2021 14:17:38 03/22/20 21 03/22/2021 urina lysis , dipst ick Protein - Not Available Main Offic e [address], [place], [address], 03/22/2021 14:17:38 03/22/20 21 03/22/2021 urina lysis , dipst ick pH 7.5 Not Available Main Offic e [address], [place], [address], 03/22/2021 14:17:38 03/22/20 21 03/22/2021 urina lysis , dipst ick Blood - Not Available Main Offic e [address], [place], [address], 03/22/2021 14:17:38 03/22/20 21 03/22/2021 urina lysis , dipst ick Specific [place] 1.000 Not Available Main O ffice [address], [place], [address], 03/22/2021 14:17:38 03/22/20 21 03/22/2021 urina lysis , dipst ick Ketone - Not Available Main Offic e [address], [place], [address], 03/22/2021 14:17:38 03/22/20 21 03/22/2021 urina lysis , dipst ick Bilirubin - Not Available Main Off ice [address], [place], [address], 03/22/2021 14:17:38 03/22/20 21 03/22/2021 urina lysis , dipst ick Glucose - Not Available Main Offic e [address], [place], [address], 03/22/2021 14:17:38 03/22/20 21 03/22/2021 urina lysis , dipst ick Appearance - Not Available Main Of fice [address], [place], [address], 03/22/2021 14:17:38 03/22/20 21 03/22/2021 urina lysis , dipst ick Color - Not Available Main Offic e [address], [place], [address], 03/22/2021 14:17:38 04/06/20 22 04/06/2022 urina lysis , dipst ick Leukocytes trace Not Available Main Of fice [address], [place], [address], 04/06/2022 14:43:51 04/06/20 22 04/06/2022 urina lysis , dipst ick Nitrite negati ve Not Available Main Office [address], [place], [address], 04/06/2022 14:43:51 04/06/20 22 04/06/2022 urina lysis , dipst ick Urobilinogen - Not Available Main Office [address], [place], [address], 04/06/2022 14:43:51 04/06/20 22 04/06/2022 urina lysis , dipst ick Protein - Not Available Main Offic e [address], [place], [address], 04/06/2022 14:43:51 04/06/20 22 04/06/2022 urina lysis , dipst ick pH 6.0 Not Available Main Offic e [address], [place], [address], 04/06/2022 14:43:51 04/06/20 22 04/06/2022 urina lysis , dipst ick Blood - Not Available Main Offic e [address], [place], [address], 04/06/2022 14:43:51 04/06/20 22 04/06/2022 urina lysis , dipst ick Specific [place] 1.005 Not Available Main O ffice [address], [place], [address], 04/06/2022 14:43:51 04/06/20 22 04/06/2022 urina lysis , dipst ick Ketone - Not Available Main Offic e [address], [place], [address], 04/06/2022 14:43:51 04/06/20 22 04/06/2022 urina lysis , dipst ick Bilirubin - Not Available Main Off ice [address], [place], [address], 04/06/2022 14:43:51 04/06/20 22 04/06/2022 urina lysis , dipst ick Glucose - Not Available Main Offic e [address], [place], [address], 04/06/2022 14:43:51 05/03/19 23 05/03/2022 urina lysis , dipst ick Leukocytes - Not Available Main Of fice [address], [place], [address], 05/03/2022 14:07:14 05/03/19 23 05/03/2022 urina lysis , dipst ick Nitrite negati ve Not Available Main Office [address], [place], [address], 05/03/2022 14:07:14 05/03/19 23 05/03/2022 urina lysis , dipst ick Urobilinogen - Not Available Main Office [address], [place], [address], 05/03/2022 14:07:14 05/03/19 23 05/03/2022 urina lysis , dipst ick Protein - Not Available Main Offic e [address], [place], [address], 05/03/2022 14:07:14 05/03/19 23 05/03/2022 urina lysis , dipst ick pH 6.0 Not Available Main Offic e [address], [place], [address], 05/03/2022 14:07:14 05/03/19 23 05/03/2022 urina lysis , dipst ick Blood - Not Available Main Offic e [address], [place], [address], 05/03/2022 14:07:14 05/03/1905/03/2022 urina lysis , dipst ick Specific [place] 1.005 Not Available Main O ffice [address], [place], [address], 05/03/2022 14:07:14 05/03/19 23 05/03/2022 urina lysis , dipst ick Ketone - Not Available Main Offic e [address], [place], [address], 05/03/2022 14:07:14 05/03/1905/03/2022 urina lysis , dipst ick Bilirubin - Not Available Main Off ice [address], [place], [address], 05/03/2022 14:07:14 05/03/1905/03/2022 urina lysis , dipst ick Glucose - Not Available Main Offic e [address], [place], [address], 05/03/2022 14:07:14 01/02/20 24 01/04/2024 PAP TEST THIN PREP Pap test thin prep NEGATI VE FOR INTRAE PITHEL IAL LESION OR MALIGN DESIRAE normal ACCES RUFUS #: [id number] Sourc e: Cervi meri/E ndoce rvica l LMP: registered pharmacist Date Taken : 01/01 Speci men Type: ThinP rep Vial Date Repor denise: 2023 Clini meri Data: Last Pap: wnl (1111 2020) Cytot ech: Brandt dixon, CT( CP) Date Repor denise: 2023 Speci men Adequ acy: Satis facto ry for evalu ation Gener al Categ oriza tion: NEGAT EFREN FOR INTRA EPITH ELIAL LESIO N OR MALIG SASHA Inter preta tion/ Resul t: Atrop hy This speci men has been christopher zed by the ThinP rep Imagi ng Syste m, an inter activ e compu ter syste m which chastity ts [facility] of ThinP rep Pap Test slide s. Follo wing imagi ng, the slide was revie wed by a Cytot echno logis t and/o r Patho logis t. End of Repor t Techn ical servi ttai provi ded by [facility] [employer] [employer], d/b/a Path rou, [facility] [place] [address] Francoise vazquez MD, Labor atory Dire tor. Case revie wed and diagn osis rende red at [facility] [employer] [facility], d/b/a PathG rou, [address] [place] [address] Francoise vazquez MD, Labor atory Dire tor. CONFI DENTI AL Not Available [facility] ([facility]) [address], [place], [address], 01/04/2024 08:56:28 01/02/2001/02/2024 urina lysis , dipst ick Leukocytes - Not Available Main Of fice [address], [place], [address], 01/02/2024 09:39:26 01/02/20 24 01/02/2024 urina lysis , dipst ick Nitrite negati ve Not Available Main Office [address], [place], [address], 01/02/2024 09:39:26 01/02/20 24 01/02/2024 urina lysis , dipst ick Urobilinogen - Not Available Main Office [address], [place], [address], 01/02/2024 09:39:26 01/02/20 24 01/02/2024 urina lysis , dipst ick Protein - Not Available Main Offic e [address], [place], [address], 01/02/2024 09:39:26 01/02/20 24 01/02/2024 urina lysis , dipst ick pH 6.0 Not Available Main Offic e [address], [place], [address], 01/02/2024 09:39:26 01/02/20 24 01/02/2024 urina lysis , dipst ick Blood - Not Available Main Offic e [address], [place], [address], 01/02/2024 09:39:26 01/02/20 24 01/02/2024 urina lysis , dipst ick Specific [place] 1.05 Not Available Main O ffice [address], [place], [address], 01/02/2024 09:39:26 01/02/20 24 01/02/2024 urina lysis , dipst ick Ketone - Not Available Main Offic e [address], [place], [address], 01/02/2024 09:39:26 01/02/20 24 01/02/2024 urina lysis , dipst ick Bilirubin - Not Available Main Off ice [address], [place], [address], 01/02/2024 09:39:26 01/04/20 24 01/02/2024 imagi ng/di agnos tic resul t No observ ation record ed. brian Pittman [address] , [place], [address], 04/14/2024 20:29:07 03/12/20 24 03/12/2024 imagi ng/di agnos tic resul t No observ ation record ed. brian Wanda [address], [place], [address], 04/14/2024 20:29:07 03/12/20 24 03/12/2024 imagi ng/di agnos tic resul t No observ ation record ed. brian Wanda [address], [place], [address], 04/14/2024 20:29:07 Result Notes None recorded. Procedures Surgical History Date Name Laterality Status Provider Name and Address Organization Details Recorded Time 01/02/20 24 Date of Last Pap Smear completed Miranda Aguilar [facility], 01/02/2024 09:38:15 07/20/19 24 Date of Last Mammogram completed [address], [place], [address], [facility], 01/03/2024 15:46:21 12/26/19 19 Most Recent Bone Density completed [address], [place], [address], [facility], 03/04/2021 15:12:45 11/23/19 17 Pelvic Transvaginal Non-OB completed [address], [place], [address], [facility], 11/24/2016 14:40:35 Imaging Results Imaging Date Name Status LastModified by Organ ation Details LastModified Time 01/02/2024 imaging/geeta gnostic result completed brian Ramireztist [address], [place], [address], 04/14/2024 20:29:07 03/12/2024 imaging/geeta gnostic result active [facility] Wanda [address], [place], [address], 04/14/2024 20:29:07 03/12/2024 imaging/geeta gnostic result active [facility] W[address], [place], [address], 04/14/2024 20:29:07 Procedure Notes None recorded. Medical Equipment None Reported. Allergies No known drug allergies Medications Name Sig Start Date Stop Date Status Note LastModified by Organization Details LastModified Time amoxicillin 500 mg capsule TAKE (1) CAPSULE BY MOUTH TWICE DAILY. 01/01 completed Not Available Not Available Not Available clonidine HCl 0.1 mg tablet TAKE (1) TABLET BY MOUTH TWICE A DAY. active Not Available Not Available No t Available prednisone 10 mg tablet 07/16 completed Not Available Not Available Not Available azithromyci n 250 mg tablet TAKE 2 TABLETS BY MOUTH THE 1ST DAY, THEN TAKE 1 TABLET BY MOUTH EVERY DAY FOR 4 DAYS 01/01 completed Not Available Not Available Not Available ibuprofen 800 mg tablet TAKE 1 TABLET EVERY 6-8 HOURS 01/01 completed Not Available Not Available Not Available fluconazole 200 mg tablet 07/16 completed Not Available Not Available Not Available meloxicam 15 mg tablet TAKE 1 TABLET BY MOUTH ONCE DAILY active Not Available Not Available No t Available phenazopyri dine 200 mg tablet 08/13 completed Not Available Not Available Not Available prednisone 20 mg tablet TAKE (1) TABLET BY MOUTH TWICE A DAY. 01/01 completed Not Available Not Available Not Available prednisone 5 mg tablet TAKE 1 TABLET BY MOUTH ONCE A DAY. 03/04 completed Not Available Not Available Not Available clobetasol 0.05 % topical cream APPLY TO AFFECTED AREA TWICE DAILY FOR 10 DAYS 03/04 completed Not Available Not Available Not Available penicillin V potassium 500 mg tablet TAKE 1 TABLET FOUR TIMES DAILY UNTIL ALL ARE TAKEN 01/01 completed Not Available Not Available Not Available ciprofloxac in 500 mg tablet 03/04 completed Not Available Not Available Not Available sulfamethox azole 800 mg-trimetho prim 160 mg tablet 03/04 completed Not Available Not Available Not Available tramadol 50 mg tablet 03/04 completed Not Available Not Available Not Available ropinirole 0.25 mg tablet TAKE 1 TABLET BY MOUTH 1-3 HOURS BEFORE BEDTIME. 03/12 completed Not Available Not Available Not Available meclizine 25 mg tablet TAKE (1) TABLET BY MOUTH EVERY EIGHT HOURS NEEDED. 03/04 completed Not Available Not Available Not Available cephalexin 500 mg capsule TAKE (1) CAPSULE BY MOUTH TWICE DAILY FOR 7 DAYS 01/01 completed Not Available Not Available Not Available erythromyci n 5 mg/gram (0.5 %) eye ointment APPLY 1 CM RIBBON INTO THE LOWER CONJUNCTI ORESTES SAC(S) IN THE AFFECTED EYE(S) BY OPHTHALMI C ROUTE 2 TIMES PER DAY 01/01 completed Not Available Not Available Not Available esomeprazol e magnesium 40 mg capsule,del ayed release TAKE (1) CAPSULE BY MOUTH ONCE A DAY. 03/12 completed Not Available Not Available Not Available Catapres-TT S-1 0.1 mg/24 hr transdermal patch Apply 1 patch every week by transderm al route as directed. 04/05 completed Not Available Not Available Not Available omeprazole 20 mg capsule,del ayed release TAKE (1) CAPSULE BY MOUTH ONCE A DAY. active Not Available Not Available No t Available montelukast 10 mg tablet TAKE 1 TABLET BY MOUTH ONCE A DAY. 03/12 completed Not Available Not Available Not Available hydroxyzine HCl 25 mg tablet 07/16 completed Not Available Not Available Not Available ergocalcife rol (vitamin D2) 1,250 mcg (50,000 unit) capsule TAKE 1 CAPSULE BY MOUTH ONCE WEEKLY. active Not Available Not Available No t Available Transderm-S copy preparer 1 mg over 3 days transdermal patch 07/16 completed Not Available Not Available Not Available polyethylen e glycol 3350 17 gram/dose oral powder 07/16 completed Not Available Not Available Not Available levofloxaci n 500 mg tablet TAKE 1 TABLET BY MOUTH ONCE A DAY. 01/01 completed Not Available Not Available Not Available levofloxaci n 750 mg tablet TAKE ONE TABLET BY MOUTH ONCE DAILY FOR 7 DAYS. 01/01 completed Not Available Not Available Not Available methylpredn isolone 4 mg tablets in a dose pack TAKE 6 TABS ON DAY 1, TAKE 5 TABS ON DAY 2, TAKE 4 TABS ON DAY 3, TAKE 3 TABS ON DAY 4, TAKE 2 TABS ON DAY 5, TAKE 1 ON DAY 6. TAKE WITH FOOD. 01/01 completed Not Available Not Available Not Available hydroxyzine HCl 10 mg tablet TAKE (1) TABLET BY MOUTH TWICE A DAY NEEDED. active Not Available Not Available No t Available cefdinir 300 mg capsule TAKE 1 CAPSULE BY MOUTH EVERY 12 HOURS 01/01 completed Not Available Not Available Not Available fluticasone propionate 50 mcg/actuati on nasal spray,suspe nsion USE 1 SPRAY IN EACH NOSTRIL ONCE DAILY active Not Available Not Available No t Available escitalopra m 20 mg tablet TAKE 1 TABLET BY MOUTH ONCE A DAY. active Not Available Not Available No t Available Premarin 0.625 mg/gram vaginal cream Insert 0.5 applicato rsful twice a week by vaginal route for 28 days. 2023 active Not Available Not Available Not Avai lable nitrofurant oin monohydrate /macrocryst als 100 mg capsule 03/04 completed Not Available Not Available Not Available pregabalin 50 mg capsule TAKE 1 CAPSULE BY MOUTH AT BEDTIME active Not Available Not Available No t Available Sudogest 12-hour 120 mg tablet,exte nded release 03/04 completed Not Available Not Available Not Available Voltaren 1 % topical gel 07/16 completed Not Available Not Available Not Available Duavee 0.45 mg-20 mg tablet TAKE 1 TABLET BY MOUTH EVERY DAY 03/04 completed Not Available Not Available Not Available Mounjaro 2.5 mg/0.5 mL subcutaneou s pen injector INJECT 2.5 MG UNDER SKIN ONCE WEEKLY 03/12 completed Not Available Not Available Not Available Ozempic 0.25 mg or 0.5 mg (2 mg/3 mL) subcutaneou s pen injector INJECT 0.25MG SUB-Q ONCE A WEEK FOR 4 WEEKS, THEN INCREASE TO 0.5MG ONCE A WEEK. 01/01 completed Not Available Not Available Not Available Vitals Date Recorded Body height Body mass index (BMI) Body weight Respiratory rate Heart rate Body temperature Systolic blood pressure Diastolic blood pressure Provider Name and Address Organization Details Last Updated DateTime 1 162.56 cm 30.4 kg/m2 88332.8 5 g 16 /min 80 /min 97.8 [degF] 149 mm[Hg] 70 mm[Hg] Carrie De La Rosa [facility], 1 14:17:21 Date Recorded Body weight Heart rate Body temperature Systolic blood pressure Diastolic blood pressure Provider Name and Address Organization Details Last Updated DateTime 2 53099.8 5 g 65 /min 96.6 [degF] 149 mm[Hg] 79 mm[Hg] [facility], 2 14:43:22 Date Recorded Body weight Heart rate Body temperature Systolic blood pressure Diastolic blood pressure Provider Name and Address Organization Details Last Updated DateTime 3 49254.2 6 g 74 /min 96.7 [degF] 137 mm[Hg] 79 mm[Hg] [facility] F[facility], 3 14:06:40 Date Recorded Body height Body mass index (BMI) Body weight Heart rate Body temperature Systolic blood pressure Diastolic blood pressure Provider Name and Address Organization Details Last Updated DateTime 4 162.56 cm 30.6 kg/m2 91223.4 4 g 63 /min 96.9 [degF] 133 mm[Hg] 72 mm[Hg] [facility], 4 09:37:47 Date Recorded Body height Body mass index (BMI) Body weight Heart rate Body temperature Systolic blood pressure Diastolic blood pressure Provider Name and Address Organization Details Last Updated DateTime 4 162.56 cm 28.7 kg/m2 57806.9 3 g 65 /min 97 [degF] 120 mm[Hg] 63 mm[Hg] [facility], 4 09:48:36 Social History Question Answer Notes LastModified by Organizat ion Details LastModified Time Tobacco Smoking Status Never Smoker Not Available [employer] 02/18/2020 03:20:23 Do You Have An Advance Directive? No [id number] Information n ot available 02/18/2020 What Is Your Level Of Alcohol Consumption? None [id number] Information not available 02/18/2020 Are You Currently Sexually Active With Anyone Who Has Traveled (within The Last 12 Weeks) To A Zika-affected Area? No Information not available 03/04/2021 Are You Blind Or Do You Have Difficulty Seeing? No [id number] Information n ot available 02/18/2020 What Is Your Level Of Caffeine Consumption? Moderate [id number] Information not available 02/18/2020 In The 14 Days Before Symptom Onset, Have You Had Close Contact With A Laboratory-confirm ed COVID-19 While That Case Was Ill? No Information n ot available 03/04/2021 In The 14 Days Before Symptom Onset, Have You Had Close Contact With A Person Who Is Under Investigation For COVID-19 While That Person Was Ill? No Information not available 03/04/2021 Have You Been To An Area Known To Be High Risk For COVID-19? Yes Information not available 03/04/2021 Are You Currently Employed? Yes [id number] Information not available 02/18/2020 Are You Deaf Or Do You Have Serious Difficulty Hearing? No [id number] Information not available 02/18/2020 What Type Of Diet Are You Following? REGULAR [id number] Information n ot available 02/18/2020 Have You Processed Blood Or Body Fluids From An Ebola Virus Disease Patient Without Appropriate PPE? No Information not available 03/04/2021 Do You Reside In Or Have You Traveled To An Area Where Ebola Virus Transmission Is Active? 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 Yes [id number] Information not available 02/18/2020 Hard Of Hearing Or Deaf In One Or Both Ears? No [email or web address] Information not available 11/22/2016 Have You Recently Or Are You Planning To Travel To An Area With Zika Virus? No Information not available 03/04/2021 Legally Blind In One Or Both Eyes? No [email or web address] Information no t available 11/22/2016 Live Alone Or With Others? With Others [email or web address] Information not available 11/22/2016 What Was The Date Of Your Most Recent Tobacco Screening? 08/13/2018 [id number] Information not available 02/18/2020 How Many Children Do You Have? 2 [id number] Information not available 02/18/2020 Performs Monthly Self-breast Exam? No [email or web address] Information no t available 11/22/2016 Seat Belts Used Routinely Yes [email or web address] Information not available 11/22/2016 Are You Sexually Active? No [id number] Information not available 02/18/2020 Smoke Alarm In Home Yes [email or web address] Information not available 11/22/2016 General Stress Level Low [email or web address] Information not available 11/22/2016 Do You Use Sunscreen Routinely? Yes [id number] Information not available 02/18/2020 Sex: Unknown Functional Status Question Answer Note LastModified by Organizat ion Details LastModified Time Do you have difficulty walking or climbing stairs? No [id number] Information not available 02/18/2020 Do you have transportation difficulties? No Information not available 03/04/2021 Are you able to walk? YESWOREST [id number] Information not available 02/18/2020 Do you have difficulty doing errands alone? No [id number] Information not available 02/18/2020 Are you able to care for yourself? Yes [id number] Information not available 02/18/2020 Do you have difficulty dressing or bathing? No [id number] Information not available 02/18/2020 What is your exercise level? Heavy [id number] Information not available 02/18/2020 Mental Status Question Answer Note LastModified by Organization D etails LastModified Time Do you have difficulty concentrating, remembering or making decisions? No [id number] Information no t available 02/18/2020 Family History Relationship Description Onset Age of this Age Resolved Age Notes LastModified by Organization Details LastModified Time Mother Diabetes mellitus Not available 04/2016 14:03:19 Mother Congestive heart failure [email or web address] Not available 04/2016 14:03:28 Father Leukemia [email or web address] Not availa ble 11/22/2016 14:03:40 Medical History Condition Response Coronary Artery Disease N Other N Gout N Kidney Stones N Blood Diseases N Hyperthyroidism N Enlarged Prostate N Blood Transfusion N COPD N Depression N Dermatologic Disorders N Gestational Diabetes N Anxiety Disorder N Muscle, Joint, or Bone Problems N Autoimmune disease N Obesity N Vision or Eye Problems N Arthritis N Polyps N Infertility N Mental Disorder N Cancer N Varicosities N Stroke N Neurologic/Epilepsy N Headaches N Fibromyalgia N Kidney Disease N Heart Problems N Ear or Hearing Problems N Hospitalizations N Acne N Skin Problems N Eating Disorder N MRSA exposure N Heartburn N Constipation N Art (IVF or FET) N Bladder Problems N Bleeding Disorder N Tuberculosis N AIDS/HIV N G.E.R.D N Asthma N Trauma/Violence N Hepatitis N Pulmonary Embolism N Chronic Ear Infections N Chicken Pox N Autism Spectrum Disorder (ASD) N Thrombophilias N Allergies (Food, seasonal, environmental ) N Colon Cancer N Drug/Latex Allergies/Reactions N Breast Cancer N Hypothyroidism N Lung Disease N Developmental or Behavioral Disorders N Defects or Inherited Disease N Breast Problem N Difficulty Swallowing N Hematologic disorders N Anesthesia Complications N History of STI N Deep Vein Thrombosis N Polycystic ovary syndrome N Meniere's disease N History of abnormal pap N Endometriosis N High Cholesterol N Liver Disease N Allergies/Hayfever N Kidney Problems N Thyroid Problems N GI Problems N ADD/ADHD N Anemia N Mental Illness N Psychiatric Illness N Diabetes N Ovarian Cancer N Pulmonary (TB, Asthma) N Seizures/Epilepsy N Congestive Heart Failure (CHF) N Hyperlipidemia N Eczema N Abuse/Domestic Violence N Diverticulitis N Depression/ depression N Heart Disease N Hypertension N Pre-Eclampsia N Osteoporosis N Gynecological History Statement/Question Response Date of Last Mammogram 07/20/2023 STIs/STDs N HPV Vaccine N Current Control Method Menopause Age at Menarche 12 Age at First Child 23 If Post Menopausal, Age at Menopause 50 Date of Last Colonoscopy Most Recent Bone Density 12/25/2018 Sexually Active? N Menses Monthly N Date of Last Pap Smear 01/02/2024 Sexual Problems? N Obstetrics History GPAL:G 2 P 2 0 0 2 Type Value Full Term 2 Living 2 Total 2 Past Encounters Encounter ID Performer Location Encounter Start Date Encounter Closed Date Diagnosis/Indication Diagnosis SNOMED-CT Code Diagnosis ICD10 Code Diagnosis Note [id number] Guevara Wang DO Main Office [address] [place] [address] 11/22/2016 13:28:19 11/22/2016 15:19:15 Gynecologic examination 48556002 Z01.411 Atrophic vaginitis 63535 000 N95.2 Uterine leiomyoma 673080 05 D25.9 u/s done in office Screening mammography 24 284824 Z12.31 [id number] Guevara Wang DO Main [place] [address] [place] [address] 11/22/2016 13:37:57 11/22/2016 16:00:21 Uterine leiomyoma 82118504 D25.9 Active or passive immunization 148635602 Z23 Screening for cardiovascular system disease 263784210 Z13.6 Screening for malignant neoplasm of colon 363027378 Z12.11 Screening for osteoporosis 605437469 Z13.820 Screening mammography 24 597369 Z12.31 Gynecologi c examination 43278849 Z01.411 [id number] Guevara Wang DO Main Office [address] [facility] [place] [place] [address] 07/16/2018 14:30:31 07/16/2018 15:50:49 Intramural leiomyoma of uterus 38403325 D25.1 Genital li martins sclerosus 976334551 L90.0 Menopausal syndrome 1237 19102 N95.1 Night sweats 99774960 R6 1 Essential hypertension 90902839 I10 Pain in pelvis 68226430 R10.2 [id number] Guevara Wang DO Main [place] [address] [place] [address] 08/13/2018 14:39:54 08/13/2018 15:23:00 Renewal of prescription 392143217 Z76.0 Essential hypertension 81215874 I10 Menopausal syndrome 1237 09892 N95.8 Urinary tr act infectious disease 47718093 N30.90 f/u from pcp Vitamin deficiency 02317 002 E56.8 [id number] Guevara Wang DO Main Office [address] [place] [address] 11/29/2018 15:42:07 11/29/2018 16:56:33 Gynecologic examination 47898943 Z01.411 Menopausal symptom 93656 002 N95.1 Renewal of prescription 486285481 Z76.0 Essential hypertension 73378883 I10 Vitamin deficiency 06509 002 E56.8 Screening for malignant neoplasm of colon 162094484 Z12.[address] [place] [address] 08/22/2019 11:43:08 08/22/2019 12:57:25 Benign essential hypertension 5809028 I10 [id number] Guevara Wang DO Main [place] [address] [place] [address] 03/04/2021 14:18:18 03/04/2021 15:43:29 Gynecologic examination 59455770 Z01.411 pap Uterine leiomyoma 664997 05 D25.9 no symptoms this year. u/s to see if shrinking Screening for mental disorders 808637775 Z13.89 Menopausal syndrome 1237 14881 N95.8 [id number] Guevara Wang DO Main [place] [address] [place] [address] 03/22/2021 14:02:29 03/22/2021 15:05:19 Menopausal syndrome 536880705 N95.1 Intramural leiomyoma of uterus 73034685 D25.1 Pain in pelvis 10489437 R10.2 [id number] Guevara Wang DO Main [place] [address] [place] [address] 04/06/2022 14:17:58 04/06/2022 15:11:59 Menopausal syndrome 424825908 N95.1 Intramural leiomyoma of uterus 01236105 D25.1 Low back pain 212071333 M54.50 [id number] Guevara Wang DO Main [place] [address] [place] [address] 05/03/2022 14:01:18 05/03/2022 14:43:59 Abnormal findings on diagnostic imaging of breast 639199434 R92.8 Menopausal syndrome 1237 01268 N95.1 Microcalci fications of the breast 43351477 R92.0 [id number] Guevara Wang DO Main Office [address] [place] [address] 01/02/2024 09:24:43 01/02/2024 10:32:30 Renewal of prescription 856496652 Z76.0 Gynecologi c examination 07633310 Z01.411 pap. has repeat mammogram scheduled today Human augusta lloma virus screening 385953628 Z11.51 [id number] Guevara Wang DO Main Office [address] [place] [address] 03/12/2024 09:37:30 03/12/2024 11:16:48 Intramural leiomyoma of uterus 45853618 D25.1 Menopausal syndrome 1237 78298 N95.1 Health Concerns Section Related Observation LastModified by Organization Detai ls LastModified Time None Recorded Concern Status LastModified by Organization Details LastModified Time None Recorded Advance Directives Directive N: Payers Encounter Date Sequence Insurance Name Policy Number Policy Wright Covered Member ID Wright Member ID Guarantor Name 03/22/2021 1 [employer] (MEDICARE REPLACEMENT/A DVANTAGE - PPO) Deanna E Adi [id number] Deanna E Adi 04/06/2022 1 [employer] (MEDICARE REPLACEMENT/A DVANTAGE - PPO) Deanna E Adi [id number] Deanna E Adi 05/03/2022 1 [employer] (MEDICARE REPLACEMENT/A DVANTAGE - PPO) Deanna E Adi [id number] Deanna E Adi 01/02/2024 1 [employer] (MEDICARE REPLACEMENT/A DVANTAGE - PPO) Deanna E Adi [id number] Deanna E Adi 03/12/2024 1 [employer] (MEDICARE REPLACEMENT/A DVANTAGE - PPO) Deanna E Adi [id number] Deanna E Adi Notes Date Note Type Note Provider Name and Address Organization Details Recorded Time 03/22/2021 text/html Patient presents for Guevara Wang DO [address], [place], [address], [facility], 03/22/2021 15:11:45 04/06/2022 text/html MenopauseReporte d bypatient.Onset/Timing :evening Quality:night sweats Severity:moderate Duration:intermittent Context:no menses for over 1 year Alleviating Factors:none Aggravating Factors:poor sleep DO [address], [place], [address], [facility], 04/25/2022 18:15:03 01/02/2024 text/html Annual Director Veterinary Post-MenopausalReporte d bypatient.Menopausal Symptoms:no menopausal symptoms; normal vaginal lubrication Vaginal Bleeding:history of menopause having occurred; no history of post menopausal bleeding Urinary Symptoms:no hematuria; no incontinence; no nocturia; no urinary frequency Vulva:no genital lesion; no vulvar atrophy Vagina:normal vaginal discharge; no vaginal atrophy Breast:no breast lump; no nipple discharge; no breast pain Sexual Complaints:no sexual complaints Psychological Symptoms:no depression; no anxiety Preventive Measures:mammogram performed within the past year; history of recent colonoscopy DO [address], [place], [address], [facility], 02/10/2024 20:09:43 03/12/2024 text/html having back pain , planning on surgery DO [address], [place], [address], [facility], 04/14/2024 20:29:55 OBGyn Episode No OBEpisode recorded.
== END 2024-08-01 23:59 | disposition home or self-care (01) ==
PROVIDERS: PCP Nurse Practitioner Family; Visit Provider Nurse Practitioner Family
DX: M48.062 Spinal stenosis, lumbar region with neurogenic claudication (principal); M51.369 Other intervertebral disc degeneration, lumbar region without mention of lumbar back pain or lower extremity pain; M25.561 Pain in right knee; M25.562 Pain in left knee; G89.29 Other chronic pain
CPT/HCPCS: 99212; G0463

== ENCOUNTER 2024-08-01 14:20 | Outpatient (CLI) | payer MEDICARE, SELFPAY ==
--- NOTE | 2024-08-01 14:23 | MR_ITS ---
FINAL REPORT TECHNIQUE: Multiplanar MR without contrast CLINICAL HISTORY: BACK PAIN lower back pain with sciatica pain COMPARISON: 09/13/2023 FINDINGS: Sagittal images show normal vertebral height. There is moderate diffuse spondylosis. Alignment is normal. Marrow signal pattern is unremarkable. L1-2: Moderate annular disc bulge, asymmetric to the right. Moderate right lateral recess stenosis. Moderate right neuroforaminal narrowing. Mild central canal stenosis. L2-3: Moderate annular disc bulge with facet overgrowth. Moderate central canal stenosis and mild bilateral neuroforaminal narrowing. L3-4: Moderate annular disc bulge. Advanced facet overgrowth. Moderate central canal stenosis and moderate neuroforaminal narrowing. L4-5: Moderate annular disc bulge with facet arthropathy. Moderate central canal stenosis. Moderate to severe bilateral neuroforaminal narrowing. L5-S1: Moderate annular disc bulge with facet arthropathy. Moderate central canal stenosis. Severe bilateral neuroforaminal narrowing. IMPRESSION: Multilevel degenerative canal stenosis and neuroforaminal narrowing, similar to prior exam. Reviewed, Interpreted and Dictated by Feli Zapien MD Transcribed by Mariza Tsang Authenticated and [facility]
== END 2024-08-01 23:59 | disposition home or self-care (01) ==
LOC: RAD 14:20
PROVIDERS: PCP Nurse Practitioner Family; Visit Provider Nurse Practitioner Family
DX: M51.360 Other intervertebral disc degeneration, lumbar region with discogenic back pain only (principal); M48.061 Spinal stenosis, lumbar region without neurogenic claudication; M46.1 Sacroiliitis, not elsewhere classified
CPT/HCPCS: 72148

== ENCOUNTER 2024-08-08 10:33 | Outpatient (POV) | payer MEDICARE, SELFPAY ==
--- OUTSIDE RECORDS SUMMARY | 2024-08-08 10:36 | XMS_ITS | Data Portability ---
Author Organization [facility] [place] [facility] Address [address] [place] [address] Care Team Providers Care Automotive Sales Professional Name Role Phone ELISHA LEWISYESENIAJhonny Primary Care [...] round of injections with pain management at [facility] with Dr. Izquierdo. The first one helped [...] and lower extremity EMG on 11/22/2023 through [facility]. Patient reports her symptoms are unchanged since [...] (11/09/2023) and lower extremity EMG (11/22/2023) through [facility] to reveal stable L1-2 spondylolisthesis in [...] 2 or 3 view, bendi ng only [address] [address] Krystyna chadwick Name: DEANNA chadwick : [address] Orderi ng Provid er: MIAN GONZALEZ EXAM DATE: 2023 EXAM: XR LUMBAR SPINE FLEX/E XT ONLY HISTOR Y: Low back pain COMPAR DIYA: None. FINDIN GS: There is minima l caul puller ior listhe sis of L1 on L2. [...] turcios MD on 024 10:46 AM [email or web address] [facility] [address], [address], 11/30/2023 11:13:52 11/13/19 24 09/13/2023 XR, lumbo sacra l spine , 2 or 3 view No observ ation record ed. BARCODE Not Available 2023 11:39:46 11/23/19 24 11/22/2023 nerve condu ction study /EMG, lower extre mity (PROC ) No observ ation record ed. [email or web address] Edgar Mak MD [address] [place], [address], 12/26/2023 08:31:22 Result Notes None recorded. Procedures Surgical History Date Name Laterality Status Provider Name and Address Organization Details Recorded Time 11/22/19 Electromyography (EMG) with Nerve Conduction Study (NCV) completed Freya Martin (Nicky) [facility] 11/22/2023 16:48:49 Imaging Results Imaging Date Name Status LastModified by Organiz ation Details LastModified Time 11/09/2023 XR, lumbosacral spine, 2 or 3 view, bending only completed [email or web address] [facility] [address] [place] [address], [address], 11/30/2023 11:13:52 09/13/2023 XR, lumbosacral spine, 2 or 3 view completed BARCODE Information not available 11/13/2023 11:39:46 11/22/2023 nerve conduction study/EMG, lower extremity (PROC) completed [email or web address] Edgar Mak MD [facility] [place], [address], 12/26/2023 08:31:22 Procedure Notes None recorded. Medical Equipment None Reported. Allergies Allergen ID Allergen Name Allergen Category Reaction Reaction Severity Criticality Documentation Date Start Date Code Code System Note Provider Name and Address Organization Details Recorded Time 348783 codeine medicatio n Not available Not available Not available 11/09/2023 2670 RxNorm Alyssa Isamar [facility], [facility] 4 08:44:31 297949 Betadine medicatio n Not available Not available Not available 11/09/2023 30958 0 RxNorm Alyssa Isamar [facility], [facility] 4 08:44:48 Medications Name Sig Start [...] Updated DateTime 11/09/2023 162.56 cm 29.7 kg/m2 52917.48 g 122 mm[Hg] 82 mm[Hg] [facility] 4 08:44:15 Date Recorded Body height Body mass index (BMI) Body weight Systolic blood pressure Diastolic blood pressure Provider Name and Address Organization Details Last Updated DateTime 01/15/2024 162.56 cm 29.7 kg/m2 10131.48 g 122 mm[Hg] 80 mm[Hg] [facility] 4 09:44:59 Social History None recorded. Functional Status None recorded. Mental Status None recorded. Family History Relationship Description Onset Age of this Age Resolved Age Notes LastModified by Organization Details LastModified Time Father Leukemia (morphologic abnormality) [email or web address] Not available 08:40:13 Unspecified Relation Diabetes mellitus [email or web address] Not available 11/08 08:40:19 Medical History Condition Response Osteoporosis/Osteopenia Y Arthritis Y Gynecological HistoryNo gynecological history recorded. Obstetrics History GPAL:G 0 P 0 0 0 0 Past Encounters Encounter ID Performer Location Encounter Start Date Encounter Closed Date Diagnosis/Indication Diagnosis SNOMED-CT Code Diagnosis ICD10 Code Diagnosis Note [id number] PATI CAMPOVERED, PRESSER HAND NEUROS[facility] [address] [place] [address] 11/09/2023 08:31:32 11/10/2023 04:05:57 Lumbar spondylosis 009606963 M47.896 Lumbar radiculopathy 128 457963 M54.16 Scoliosis deformity of spine 213294457 M41.9 [id number] Freya OlgaShannanAlannah Martin NEUROLOGY [address] [place] [address] 11/22/2023 15:13:53 11/28/2023 14:22:40 Chronic low back pain 591714052 M54.50 Pain in ri ght lower limb 716899533 M79.604 Paresthesi a of lower extremity 896970837 R20.2 [id number] SHAHEED HUYNH PA-C [facility] [address] [place] [address] 01/15/2024 09:25:44 01/16/2024 04:41:48 Lumbar radiculopathy 078966991 M54.16 Health Concerns Section Related Observation LastModified by Organization Detai ls LastModified Time None Recorded Concern Status LastModified by Organization Details LastModified Time None Recorded Advance Directives Directive None Recorded Payers Encounter Date Sequence Insurance Name Policy Number Policy Wright Covered Member ID Wright Member ID Guarantor Name 11/09/2023 1 [employer] (MEDICARE REPLACEMENT/A DVANTAGE - PPO) Deanna Butch Joshi [id number] Deanna Joshi 11/22/2023 1 [employer] (MEDICARE REPLACEMENT/A DVANTAGE - PPO) Deanna Joshi [id number] Deanna Joshi 01/15/2024 1 [employer] (MEDICARE REPLACEMENT/A DVANTAGE - PPO) Deanna Joshi [id number] Deanna Joshi Notes Date Note Type Note [...] round of injections with pain management at [facility] with Dr. Izquierdo. The first one helped [...] for surgical intervention. PATI CAMPOVERDE APRN [address] [place], [address], [facility] 11/09/2023 11:14:02 01/15/2024 text/html Deanna Joshi is a 73-year-old presenting to the clinic for imaging follow-up for right lower extremity pain. Patient presents with completed flexion/extension x-rays on 11/09/2023 and lower extremity EMG on 11/22/2023 through [facility]. Patient reports her symptoms are unchanged since [...] Gonzalez and Renetta in clinic today SHAHEED HUYNH PA-C [address] [place], [address], [facility] 01/15/2024 10:55:57 OBGyn Episode No OBEpisode recorded.
--- OUTSIDE RECORDS SUMMARY | 2024-08-08 10:36 | XMS_ITS | Data Portability ---
Author Organization [facility],, Main Office Address [address] [place] [address] Assessment Encounter Date Assessment Date Assessment LastModified by Organization Details LastModified Time 01/02/2024 01/02/2024 Annual gynecological exam performed. Patient will come back in a year unless there are new symptoms. jamison Not available 01/02/2024 09:37:13 Plan of Treatment Reminders Order Date Submit Date Provider Last Modified By Organization Details Last Modified Time Details Appointments None recorded. Lab urinalysi s, dipstick 2023 024 [facility] Main Office, [address], [place], [address], 4 20:29:52 urinalysi s, dipstick 2023 024 RYAN Main Office, [address], [place], [address], 4 12:03:13 urinalysi s, dipstick 2022 023 [facility] Main Office, [address], [place], [address], 3 21:53:21 urinalysi s, dipstick 2021 022 [facility] Main Office, [address], [place], [address], 3 18:14:59 urinalysi s, dipstick 2020 021 [facility] Main Office, [address], [place], [address], 15:11:38 Referral None recorded. Procedures None recorded. Surgeries None recorded. Imaging None recorded. Medication Orders Premarin 0.625 mg/gram vaginal cream 2023 024 RYAN [facility], [address] [place], [address], 10:38:52 Patient TargetsNo targets recorded. Patient Instructions Encounter Date Encounter Id Patient Instructions Last Modified By Organization Details Last Modified Time 03/22/2021 [id number] uterine fibroids : care instructions [email or web address] Not available 03/22/2021 15:11:38 04/06/2022 [id number] back care and preventing injuries: care instructions [...] reviewed. gveloudis Not available 04/25/2022 18:14:10 05/03/2022 [id number] Lengthy discussion, recommended second opinion from breast center. 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 Follo wing imagi ng, the slide was revie wed by a Cytot echno logis t and/o r Patho logis t. End of Repor t Techn ical servi tati provi ded by [facility] iatAubrey Patho logis [employer], [employer], d/b/a PathAnuradha hernandez, [address] [place] [address] Cornell Powell MD, Labor atory Direc tor. Case revie wed and diagn osis rende red at [facility] iated Patho logis [employer], [facility], d/b/a Mason hernandez, [address] [place] [address] Cornell Powell MD, Labor atory Direc tor. CONFI DENTI AL Not Available [facility]) [address], [place], [address], 03/08/2021 13:47:58 03/04/20 21 03/04/2021 urina lysis , dipst ick Leukocytes - Not Available Main Of fice [address], [place], [address], 03/04/2021 14:56:27 03/04/20 21 03/04/2021 urina lysis , dipst ick Nitrite negati ve Not Available Main Office [address], [place], [address], 03/04/2021 14:56:27 03/04/20 21 03/04/2021 urina lysis , dipst ick Urobilinogen - Not Available Main Office [address], [place], [address], 03/04/2021 14:56:27 03/04/20 21 03/04/2021 urina lysis , dipst ick Protein - Not Available Main Offic e [address], [place], [address], 03/04/2021 14:56:27 03/04/20 21 03/04/2021 urina lysis , dipst ick pH 5.0 Not Available Main Offic e [address], [place], [address], 03/04/2021 14:56:27 03/04/20 21 03/04/2021 urina lysis , dipst ick Blood - Not Available Main Offic e [address], [place], [address], 03/04/2021 14:56:27 03/04/20 21 03/04/2021 urina lysis , dipst ick Specific [place] 1.030 Not Available Main O ffice [address], [place], [address], 03/04/2021 14:56:27 03/04/20 21 03/04/2021 urina lysis , dipst ick Ketone trace Not Available Main Offic e [address], [place], [address], 03/04/2021 14:56:27 03/04/20 21 03/04/2021 urina lysis , dipst ick Bilirubin - Not Available Main Off ice [address], [place], [address], 03/04/2021 14:56:27 03/04/20 21 03/04/2021 urina lysis , dipst ick Glucose - Not Available Main Offic e [address], [place], [address], 03/04/2021 14:56:27 03/04/20 21 03/04/2021 urina lysis , dipst ick Appearance - Not Available Main Of fice [address], [place], [address], 03/04/2021 14:56:27 03/04/20 21 03/04/2021 urina lysis , dipst ick Color - Not Available Main Offic e [address], [place], [address], 03/04/2021 14:56:27 03/22/20 21 03/22/2021 urina lysis , dipst ick Leukocytes - Not Available Main Of fice [address], [place], [address], 03/22/2021 14:17:38 03/22/20 21 03/22/2021 urina lysis , dipst ick Nitrite negati ve Not Available Main Office [address], [place], [address], 03/22/2021 14:17:38 03/22/20 21 03/22/2021 urina lysis , dipst ick Urobilinogen - Not Available Main Office [address], [place], [address], 03/22/2021 14:17:38 03/22/20 21 03/22/2021 urina lysis , dipst ick Protein - Not Available Main Offic e [address], [place], [address], 03/22/2021 14:17:38 03/22/20 21 03/22/2021 urina lysis , dipst ick pH 7.5 Not Available Main Offic e [address], [place], [address], 03/22/2021 14:17:38 03/22/20 21 03/22/2021 urina lysis , dipst ick Blood - Not Available Main Offic e [address], [place], [address], 03/22/2021 14:17:38 03/22/20 21 03/22/2021 urina lysis , dipst ick Specific Princeton 1.000 Not Available Main O ffice [address], [place], [address], 03/22/2021 14:17:38 03/22/20 21 03/22/2021 urina lysis , dipst ick Ketone - Not Available Main Offic e [address], [place], [address], 03/22/2021 14:17:38 03/22/20 21 03/22/2021 urina lysis , dipst ick Bilirubin - Not Available Main Off ice [address], [place], [address], 03/22/2021 14:17:38 03/22/20 21 03/22/2021 urina lysis , dipst ick Glucose - Not Available Main Offic e [address], [place], [address], 03/22/2021 14:17:38 03/22/20 21 03/22/2021 urina lysis , dipst ick Appearance - Not Available Main Of fice [address], [place], [address], 03/22/2021 14:17:38 03/22/20 21 03/22/2021 urina lysis , dipst ick Color - Not Available Main Offic e [address], [place], [address], 03/22/2021 14:17:38 04/06/20 22 04/06/2022 urina lysis , dipst ick Leukocytes trace Not Available Main Of fice [address], [place], [address], 04/06/2022 14:43:51 04/06/20 22 04/06/2022 urina lysis , dipst ick Nitrite negati ve Not Available Main Office [address], [place], [address], 04/06/2022 14:43:51 04/06/20 22 04/06/2022 urina lysis , dipst ick Urobilinogen - Not Available Main Office [address], [place], [address], 04/06/2022 14:43:51 04/06/20 22 04/06/2022 urina lysis , dipst ick Protein - Not Available Main Offic e [address], [place], [address], 04/06/2022 14:43:51 04/06/20 22 04/06/2022 urina lysis , dipst ick pH 6.0 Not Available Main Offic e [address], [place], [address], 04/06/2022 14:43:51 04/06/20 22 04/06/2022 urina lysis , dipst ick Blood - Not Available Main Offic e [address], [place], [address], 04/06/2022 14:43:51 04/06/20 22 04/06/2022 urina lysis , dipst ick Specific [place] 1.005 Not Available Main O ffice [address], [place], [address], 04/06/2022 14:43:51 04/06/20 22 04/06/2022 urina lysis , dipst ick Ketone - Not Available Main Offic e [address], [place], [address], 04/06/2022 14:43:51 04/06/20 22 04/06/2022 urina lysis , dipst ick Bilirubin - Not Available Main Off ice [address], [place], [address], 04/06/2022 14:43:51 04/06/20 22 04/06/2022 urina lysis , dipst ick Glucose - Not Available Main Offic e [address], [place], [address], 04/06/2022 14:43:51 05/03/19 23 05/03/2022 urina lysis , dipst ick Leukocytes - Not Available Main Of fice [address], [place], [address], 05/03/2022 14:07:14 05/03/19 23 05/03/2022 urina lysis , dipst ick Nitrite negati ve Not Available Main Office [address], [place], [address], 05/03/2022 14:07:14 05/03/19 23 05/03/2022 urina lysis , dipst ick Urobilinogen - Not Available Main Office [address], [place], [address], 05/03/2022 14:07:14 05/03/19 23 05/03/2022 urina lysis , dipst ick Protein - Not Available Main Offic e [address], [place], [address], 05/03/2022 14:07:14 05/03/19 23 05/03/2022 urina lysis , dipst ick pH 6.0 Not Available Main Offic e [address], [place], [address], 05/03/2022 14:07:14 05/03/19 23 05/03/2022 urina lysis , dipst ick Blood - Not Available Main Offic e [address], [place], [address], 05/03/2022 14:07:14 05/03/1905/03/2022 urina lysis , dipst ick Specific [place] 1.005 Not Available Main O ffice [address], [place], [address], 05/03/2022 14:07:14 05/03/19 23 05/03/2022 urina lysis , dipst ick Ketone - Not Available Main Offic e [address], [place], [address], 05/03/2022 14:07:14 05/03/1905/03/2022 urina lysis , dipst ick Bilirubin - Not Available Main Off ice [address], [place], [address], 05/03/2022 14:07:14 05/03/1905/03/2022 urina lysis , dipst ick Glucose - Not Available Main Offic e [address], [place], [address], 05/03/2022 14:07:14 01/02/20 24 01/04/2024 PAP TEST THIN PREP Pap test thin prep NEGATI VE FOR INTRAE PITHEL IAL LESION OR MALIGN DESIRAE normal ACCES RUFUS #: [id number] Sourc e: Cervi meri/E ndoce rvica l 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 Follo wing imagi ng, the slide was revie wed by a Cytot echno logis t and/o r Patho logis t. End of Repor t Techn ical servi tati provi ded by [facility] [employer], d/b/a Path rou, [facility] [place] [address] Francoise vazquez MD, Labor atory Dire tor. Case revie wed and diagn osis rende red at [facility] [employer] [facility], d/b/a [facility], [address] [place] [address] Francoise vazquez MD, Labor atory Dire tor. CONFI DENTI AL Not Available [facility] ([facility]) [address], [place], [address], 01/04/2024 08:56:28 01/02/2001/02/2024 urina lysis , dipst ick Leukocytes - Not Available Main Of fice [address], [place], [address], 01/02/2024 09:39:26 01/02/20 24 01/02/2024 urina lysis , dipst ick Nitrite negati ve Not Available Main Office [address], [place], [address], 01/02/2024 09:39:26 01/02/20 24 01/02/2024 urina lysis , dipst ick Urobilinogen - Not Available Main Office [address], [place], [address], 01/02/2024 09:39:26 01/02/20 24 01/02/2024 urina lysis , dipst ick Protein - Not Available Main Offic e [address], [place], [address], 01/02/2024 09:39:26 01/02/20 24 01/02/2024 urina lysis , dipst ick pH 6.0 Not Available Main Offic e [address], [place], [address], 01/02/2024 09:39:26 01/02/20 24 01/02/2024 urina lysis , dipst ick Blood - Not Available Main Offic e [address], [place], [address], 01/02/2024 09:39:26 01/02/20 24 01/02/2024 urina lysis , dipst ick Specific [place] 1.05 Not Available Main O ffice [address], [place], [address], 01/02/2024 09:39:26 01/02/20 24 01/02/2024 urina lysis , dipst ick Ketone - Not Available Main Offic e [address], [place], [address], 01/02/2024 09:39:26 01/02/20 24 01/02/2024 urina lysis , dipst ick Bilirubin - Not Available Main Off ice [address], [place], [address], 01/02/2024 09:39:26 01/04/20 24 01/02/2024 imagi ng/di agnos tic resul t No observ ation record ed. brian Pittman [address] , [place], [address], 04/14/2024 20:29:07 03/12/20 24 03/12/2024 imagi ng/di agnos tic resul t No observ ation record ed. brian Wanda [address], [place], [address], 04/14/2024 20:29:07 03/12/20 24 03/12/2024 imagi ng/di agnos tic resul t No observ ation record ed. brian Wanda [address], [place], [address], 04/14/2024 20:29:07 Result Notes None recorded. Procedures Surgical History Date Name Laterality Status Provider Name and Address Organization Details Recorded Time 01/02/20 24 Date of Last Pap Smear completed Miranda Aguilar [facility], 01/02/2024 09:38:15 07/20/19 24 Date of Last Mammogram completed [address], [place], [address], [facility], 01/03/2024 15:46:21 12/26/19 19 Most Recent Bone Density completed [address], [place], [address], [facility], 03/04/2021 15:12:45 11/23/19 17 Pelvic Transvaginal Non-OB completed [address], [place], [address], [facility], 11/24/2016 14:40:35 Imaging Results Imaging Date Name Status LastModified by Organ ation Details LastModified Time 01/02/2024 imaging/geeta gnostic result completed brian Ramireztist [address], [place], [address], 04/14/2024 20:29:07 03/12/2024 imaging/geeta gnostic result active gveloudis Wanda [address], [place], [address], 04/14/2024 20:29:07 03/12/2024 imaging/geeta gnostic result active gveloudis [address], [place], [address], 04/14/2024 20:29:07 Procedure Notes None recorded. Medical [...] Available Not Available No t Available Transderm-S photostatic copy maker 1 mg over 3 days transdermal patch [...] Updated DateTime 1 162.56 cm 30.4 kg/m2 30713.8 5 g 16 /min 80 /min 97.8 [degF] 149 mm[Hg] 70 mm[Hg] Carrie De La Rosa [facility], 1 14:17:21 Date Recorded Body weight Heart rate Body temperature Systolic blood pressure Diastolic blood pressure Provider Name and Address Organization Details Last Updated DateTime 2 20350.8 5 g 65 /min 96.6 [degF] 149 mm[Hg] 79 mm[Hg] [facility], 2 14:43:22 Date Recorded Body weight Heart rate Body temperature Systolic blood pressure Diastolic blood pressure Provider Name and Address Organization Details Last Updated DateTime 3 34001.2 6 g 74 /min 96.7 [degF] 137 mm[Hg] 79 mm[Hg] [facility], 3 14:06:40 Date Recorded Body height Body mass index (BMI) Body weight Heart rate Body temperature Systolic blood pressure Diastolic blood pressure Provider Name and Address Organization Details Last Updated DateTime 4 162.56 cm 30.6 kg/m2 27387.4 4 g 63 /min 96.9 [degF] 133 mm[Hg] 72 mm[Hg] [facility], 4 09:37:47 Date Recorded Body height Body mass index (BMI) Body weight Heart rate Body temperature Systolic blood pressure Diastolic blood pressure Provider Name and Address Organization Details Last Updated DateTime 4 162.56 cm 28.7 kg/m2 14645.9 3 g 65 /min 97 [degF] 120 mm[Hg] 63 mm[Hg] [facility], 4 09:48:36 Social History Question Answer Notes LastModified by Organizat ion Details LastModified Time Tobacco Smoking Status Never Smoker Not Available [employer] 02/18/2020 03:20:23 Do You Have An Advance Directive? No [id number] Information n ot available 02/18/2020 What Is Your Level Of Alcohol Consumption? None [id number] Information not available 02/18/2020 Are You Currently Sexually Active With Anyone Who Has Traveled (within The Last 12 Weeks) To A Zika-affected Area? No Information not available 03/04/2021 Are You Blind Or Do You Have Difficulty Seeing? No [id number] Information n ot available 02/18/2020 What Is Your Level Of Caffeine Consumption? Moderate [id number] Information not available 02/18/2020 In The 14 [...] available 03/04/2021 Are You Currently Employed? Yes [id number] Information not available 02/18/2020 Are You Deaf Or Do You Have Serious Difficulty Hearing? No [id number] Information not available 02/18/2020 What Type Of Diet Are You Following? REGULAR [id number] Information n ot available 02/18/2020 Have You Processed Blood Or Body Fluids From An Ebola Virus Disease Patient Without Appropriate PPE? No Information not available 03/04/2021 Do You Reside In Or Have You Traveled To An Area Where Ebola Virus Transmission Is Active? 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 Yes [id number] Information not available 02/18/2020 Hard Of Hearing Or Deaf In One Or Both Ears? No [email or web address] Information not available 11/22/2016 Have You Recently Or Are You Planning To Travel To An Area With Zika Virus? No Information not available 03/04/2021 Legally Blind In One Or Both Eyes? No [email or web address] Information no t available 11/22/2016 Live Alone Or With Others? With Others [email or web address] Information not available 11/22/2016 What Was The Date Of Your Most Recent Tobacco Screening? 08/13/2018 [id number] Information not available 02/18/2020 How Many Children Do You Have? 2 [id number] Information not available 02/18/2020 Performs Monthly Self-breast Exam? No [email or web address] Information no t available 11/22/2016 Seat Belts Used Routinely Yes [email or web address] Information not available 11/22/2016 Are You Sexually Active? No [id number] Information not available 02/18/2020 Smoke Alarm In Home Yes [email or web address] Information not available 11/22/2016 General Stress Level Low [email or web address] Information not available 11/22/2016 Do You Use Sunscreen Routinely? Yes [id number] Information not available 02/18/2020 Sex: Unknown Functional Status Question Answer Note LastModified by Organizat ion Details LastModified Time Do you have difficulty walking or climbing stairs? No [id number] Information not available 02/18/2020 Do you have transportation difficulties? No Information not available 03/04/2021 Are you able to walk? YESWOREST [id number] Information not available 02/18/2020 Do you have difficulty doing errands alone? No [id number] Information not available 02/18/2020 Are you able to care for yourself? Yes [id number] Information not available 02/18/2020 Do you have difficulty dressing or bathing? No [id number] Information not available 02/18/2020 What is your exercise level? Heavy [id number] Information not available 02/18/2020 Mental Status Question Answer Note LastModified by Organization D etails LastModified Time Do you have difficulty concentrating, remembering or making decisions? No [id number] Information no t available 02/18/2020 Family History Relationship Description Onset Age of this Age Resolved Age Notes LastModified by Organization Details LastModified Time Mother Diabetes mellitus [email or web address] Not available 04/2016 14:03:19 Mother Congestive heart failure [email or web address] Not available 04/2016 14:03:28 Father Leukemia Not availa ble 11/22/2016 14:03:40 Medical History Condition Response Coronary Artery Disease N Other N Gout N Blood Diseases N Kidney Stones N Hyperthyroidism N Enlarged Prostate N Blood Transfusion N Dermatologic Disorders N Depression N COPD N Gestational Diabetes N Anxiety Disorder N Autoimmune disease N Muscle, Joint, or Bone Problems N Obesity N Vision or Eye Problems N Arthritis N Infertility N Polyps N Mental Disorder N Cancer N Varicosities N Stroke N Neurologic/Epilepsy N Headaches N Fibromyalgia N Kidney Disease N Heart Problems N Ear or Hearing Problems N Hospitalizations N Acne N Eating Disorder N Skin Problems N MRSA exposure N Constipation N Heartburn N Art (IVF or FET) N Bladder Problems N Bleeding Disorder N Tuberculosis N AIDS/HIV N G.E.R.D N Asthma N Trauma/Violence N Hepatitis N Pulmonary Embolism N Chronic Ear Infections N Chicken Pox N Autism Spectrum Disorder (ASD) N Thrombophilias N Allergies (Food, seasonal, environmental ) N Colon Cancer N Drug/Latex Allergies/Reactions N Breast Cancer N Lung Disease N Hypothyroidism N Defects or Inherited Disease N Developmental or Behavioral Disorders N Breast Problem N Difficulty Swallowing N [...] Failure (CHF) N Hyperlipidemia N Eczema N Diverticulitis N Abuse/Domestic Violence N Depression/ depression N Heart Disease N [...] Wang DO Main Office [address] [place] [address] 11/22/2016 13:28:19 11/22/2016 15:19:15 Gynecologic examination 47040831 Z01.411 Atrophic vaginitis 11864 000 N95.2 Uterine leiomyoma 387919 05 D25.9 u/s done in office Screening mammography 24 979543 Z12.31 1155 Guevara Wang DO Main Office [address] [place] [address] 11/22/2016 13:37:57 11/22/2016 16:00:21 Uterine leiomyoma 68311692 D25.9 Active or passive immunization 593663751 Z23 Screening for cardiovascular system disease 270681957 Z13.6 Screening for malignant neoplasm of colon 391716382 Z12.11 Screening for osteoporosis 549234555 Z13.820 Screening mammography 24 080975 Z12.31 Gynecologi c examination 92327470 Z01.411 01211 Guevara Wang DO Main Office [address] [facility] [place] [address] 07/16/2018 14:30:31 07/16/2018 15:50:49 Intramural leiomyoma of uterus 65206553 D25.1 Genital li martins sclerosus 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 Menopausal syndrome 1237 10729 N95.1 Night sweats 90644387 R6 1 Essential hypertension 72453109 I10 Pain in pelvis 94140688 R10.2 16816 Guevara Wang DO Main [place] [address] [place] [address] 08/13/2018 14:39:54 08/13/2018 15:23:00 Renewal of prescription 105977966 Z76.0 Essential hypertension 42489096 I10 Menopausal syndrome 1237 73416 N95.8 Urinary tr act infectious disease 16983726 N30.90 f/u from pcp Vitamin deficiency 72027 002 E56.8 05244 Guevara Wang DO Main Office [address] [place] [address] 11/29/2018 15:42:07 11/29/2018 16:56:33 Gynecologic examination 42783260 Z01.411 Menopausal symptom 91770 002 N95.1 Renewal of prescription 778838612 Z76.0 Essential hypertension 74299010 I10 Vitamin deficiency 62857 002 E56.8 Screening for malignant neoplasm of colon 748008070 Z12.11 [address] [place] [place] [address] 08/22/2019 11:43:08 08/22/2019 12:57:25 Benign essential hypertension 8315066 I10 55614 Guevara Wang DO Main Office [address] [place] [address] [address] 03/04/2021 14:18:18 03/04/2021 15:43:29 Gynecologic examination 78668563 Z01.411 pap Uterine leiomyoma 651210 05 D25.9 no symptoms this year. u/s to see if shrinking Screening for mental disorders 709822309 Z13.89 Menopausal syndrome 1237 98512 N95.8 94658 Guevara Wang DO Main Office [address] [place] [address] 03/22/2021 14:02:29 03/22/2021 15:05:19 Menopausal syndrome 743805480 N95.1 Intramural leiomyoma of uterus 13779631 D25.1 Pain in pelvis 46466061 R10.2 80360 Guevara Wang DO Main Office [address] [place] [address] 04/06/2022 14:17:58 04/06/2022 15:11:59 Menopausal syndrome 992002798 N95.1 Intramural leiomyoma of uterus 16538351 D25.1 Low back pain 291096663 M54.50 30317 Guevara Wang DO Main Office [address] [place] [place] [address] 05/03/2022 14:01:18 05/03/2022 14:43:59 Abnormal findings on diagnostic imaging of breast 358636976 R92.8 Menopausal syndrome 1237 31619 N95.1 Microcalci fications of the breast 95873902 R92.0 16204 Guevara Wang DO Main Office [address] [place] [address] 01/02/2024 09:24:43 01/02/2024 10:32:30 Renewal of prescription 363209055 Z76.0 Gynecologi c examination 09405518 Z01.411 pap. has repeat mammogram scheduled today Human [facility] virus screening [id number] Z11.51 [id number] Guevara Wang DO Main Office [address] [place] [address] 03/12/2024 09:37:30 03/12/2024 11:16:48 Intramural leiomyoma of uterus [id number] D25.1 Menopausal syndrome [id number] N95.1 Health Concerns Section Related Observation LastModified by Organization Detai ls LastModified Time None Recorded Concern Status LastModified by Organization Details LastModified Time None Recorded Advance Directives Directive N: Payers Encounter Date Sequence Insurance Name Policy Number Policy Wright Covered Member ID Wright Member ID Guarantor Name 03/22/2021 1 [employer] (MEDICARE REPLACEMENT/A DVANTAGE - PPO) Deanna E Adi [id number] Deanna E Adi 04/06/2022 1 [employer] (MEDICARE REPLACEMENT/A DVANTAGE - PPO) Deanna E Adi [id number] Deanna E Adi 05/03/2022 1 [employer] (MEDICARE REPLACEMENT/A DVANTAGE - PPO) Deanna E Adi [id number] Deanna E Adi 01/02/2024 1 [employer] (MEDICARE REPLACEMENT/A DVANTAGE - PPO) Deanna E Adi [id number] Deanna E Adi 03/12/2024 1 [employer] (MEDICARE REPLACEMENT/A DVANTAGE - PPO) Deanna E Adi [id number] Deanna E Adi Notes Date Note Type Note Provider Name and Address Organization Details Recorded Time 03/22/2021 text/html Patient presents for Guevara Wang DO [address], [place], [address], [facility], 03/22/2021 15:11:45 04/06/2022 text/html MenopauseReporte d bypatient.Onset/Timing :evening Quality:night sweats Severity:moderate Duration:intermittent Context:no menses for over 1 year Alleviating Factors:none Aggravating Factors:poor sleep DO [address], [place], [address], [facility], 04/25/2022 18:15:03 01/02/2024 text/html Annual Pediatric Surgeon Post-MenopausalReporte d bypatient.Menopausal Symptoms:no menopausal symptoms; normal [...] of recent colonoscopy DO [address], [place], [address], [facility], 02/10/2024 20:09:43 03/12/2024 text/html having back pain , planning on surgery DO [address], [place], [address], [facility], 04/14/2024 20:29:55 OBGyn Episode No OBEpisode recorded.
--- NOTE | 2024-08-08 11:10 | EXP.PAIN.SOA ---
[facility] Disclaimer: The information contained in this section may have been updated after the patient was seen, as this information can be updated by other users. Medical History Claudication Dyspnea Chest pain PAF (paroxysmal atrial fibrillation) Family History Mother Diabetes CHF (congestive heart failure) Father Cancer Social History Smoking Status: Never smoker alcohol intake: never substance use type: denies use current occupational status: other Travel in the last 8 weeks: None PM Subjective & Objective Subjective Subjective:: Patient is a pleasant 74-year-old female who presents today for follow-up of lumbar MRI. Today she rates her pain an 8 out of 10. Patient continues to have the chronic pain there in her low back that does radiate down into her buttocks and down into her legs. Patient denies any other changes from her last appointment. Patient has now stopped going to physical therapy as it was not providing any long-term relief. Patient is currently managed with pregabalin 50 mg twice a day from our office along with ropinirole 0.25 mg at bedtime. She denies any side effects. Her Octavio has been reviewed and is appropriate. Injections: 07/28/2023?bilateral SI injections 100% relief for 1 week 08/29/2023 right greater trochanteric bursa injection 100% relief 10/03/2023 right transforaminal L4-L5 L5-S1 50% bilateral SI injections 11/28/2023 75 to 80% 04/23/2024 lumbar epidural steroid injection L4-L5 30% 05/21/2024 bilateral SI injections 90% Review of Systems: General: No recent weight changes, no fever, no sleep disturbances Respiratory: No cough, no shortness of air, no recurring pulmonary infections Cardiovascular/peripheral vascular: No chest pain, no palpitations, no edema, no shortness of breath Gastrointestinal: No new onset incontinence, normal bowel movements reported Genitourinary: No new onset incontinence Musculoskeletal: Chronic low back pain, leg pain Psychiatric: [Normal mood/affect] Neurological: [Denies weakness in extremities], [denies balance issues] Pain at rest (0-10 scale): 8 Objective Objective:: Physical Exam: General: Alert and oriented x3, no acute distress, pleasant and cooperative Lungs: Respirations even and unlabored, symmetrical chest expansion Eyes: PERRL Musculoskeletal: Flexion and extension of lumbar [spine] somewhat guarded secondary to pain, [antalgic gait noted] Neurological: Speech clear, no gross sensory deficit Has patient had previous pain injection?: No Conservative treatment options previously tried: Home exercise plan Length of treatment: Longer than 12 weeks Meds Home Medications and Allergies Home Medications ?Medication ?Instructions ?Recorded ?Confirmed ?Type clonidine HCl 0.1 mg tablet 0.1 mg PO BID 06/23/22 08/01/24 History ergocalciferol (vitamin D2) 1,250 1,250 mcg PO WEEKLY 06/23/22 08/01/24 History mcg (50,000 unit) capsule escitalopram oxalate 20 mg tablet 20 mg PO DAILY 06/23/22 08/01/24 History esomeprazole magnesium 40 mg 40 mg PO DAILY 06/23/22 08/01/24 History capsule,delayed release meloxicam 15 mg tablet 15 mg PO DAILY 06/23/22 08/01/24 History nitroglycerin 0.4 mg sublingual 0.4 mg sublingual Q5-15M PRN Chest 06/23/22 08/01/24 History tablet Pain ropinirole 0.25 mg tablet 0.25 mg PO HS #30 tabs 11/29/23 08/01/24 Rx pregabalin 50 mg capsule 50 mg PO HS #30 caps 07/29/24 08/01/24 Rx pregabalin 50 mg capsule 50 mg PO BID #60 caps 08/01/24 Rx New Prescriptions to Start Prescriptions: Allergies Allergy/AdvReac Type Severity Reaction Status Date / Time codeine AdvReac unkn Verified 06/25/24 13:35 iodine AdvReac unkn' Verified 06/25/24 13:35 Assessment and Plan *Assessment and plan (1) Lumbar spinal stenosis: Status: Acute Qualifiers: Neurogenic claudication status: with neurogenic claudication Qualified Code(s): M48.062 - Spinal stenosis, lumbar region with neurogenic claudication Category: Medical Code(s): M48.061 - Spinal stenosis, lumbar region without neurogenic claudication (2) Degenerative disc disease, lumbar: Status: Acute Category: Medical Code(s): M51.369 - Other intervertebral disc degeneration, lumbar region without mention of lumbar back pain or lower extremity pain (3) Low back pain: Status: Acute Qualifiers: Chronicity: chronic Back pain laterality: bilateral Sciatica presence: with sciatica Sciatica laterality: bilateral sciatica Qualified Code(s): M54.42 - Lumbago with sciatica, left side; M54.41 - Lumbago with sciatica, right side; G89.29 - Other chronic pain Category: Medical Code(s): M54.50 - Low back pain, unspecified (4) Greater trochanteric bursitis: Status: Acute Qualifiers: Laterality: right Qualified Code(s): M70.61 - Trochanteric bursitis, right hip Category: Medical Code(s): M70.60 - Trochanteric bursitis, unspecified hip (5) Bilateral sacroiliitis: Status: Acute Category: Medical Code(s): M46.1 - Sacroiliitis, not elsewhere classified Plan Patient continues to have chronic pain throughout her low back that does radiate into her buttocks area and into her legs. We have tried multiple injections that have provided improvement however have varied on how long they have lasted. I did discuss with the patient her findings and her most up-to-date MRI. Patient has tried and failed physical therapy and did not get long-lasting relief with this intervention as well. I have recommended to go back to Dr. Allison's office and review with him for possible surgical intervention due to the injections not providing long-term relief. We will send over a copy of the most recent notes documenting all her injection she has tried as well as her updated MRI.. Patient will return to clinic in 6 weeks following her appointment with Dr. Allison. Patient agrees with this plan of care. Patient has been instructed to contact the clinic with any concerns before the next appointment. Dr. Izquierdo has reviewed this note and agrees with this plan of care. This note was dictated using voice recognition software and make contain errors or omissions. All injections are used with Lidocaine, Bupivacaine and Depo Medrol. Occasionally urine drug screen is needed to verify patient's compliance with our office pain contract. This is ordered based off specific treatments related to chronic pain with the potential to abuse certain medications.
[2024-08-08 12:06] VITALS: BP 131/73; PULSE 69; RESP 14; O2SAT 96; BMI 28.3
== END 2024-08-08 23:59 | disposition home or self-care (01) ==
PROVIDERS: PCP Nurse Practitioner Family; Visit Provider Nurse Practitioner Family
DX: M48.062 Spinal stenosis, lumbar region with neurogenic claudication (principal); M51.369 Other intervertebral disc degeneration, lumbar region without mention of lumbar back pain or lower extremity pain; M54.42 Lumbago with sciatica, left side; M54.41 Lumbago with sciatica, right side; G89.29 Other chronic pain; M70.61 Trochanteric bursitis, right hip; M46.1 Sacroiliitis, not elsewhere classified
CPT/HCPCS: 99212; G0463

== ENCOUNTER 2024-09-25 10:14 | Outpatient (POV) | payer MEDICARE, SELFPAY ==
--- NOTE | 2024-09-25 10:54 | EXP.PAIN.SOA ---
[facility] Disclaimer: The information contained in this section may have been updated after the patient was seen, as this information can be updated by other users. Medical History Claudication Dyspnea Chest pain PAF (paroxysmal atrial fibrillation) Family History Mother Diabetes CHF (congestive heart failure) Father Cancer Social History Smoking Status: Never smoker alcohol intake: never substance use type: denies use current occupational status: other Travel in the last 8 weeks?: None Have you lived/traveled outside US in past 30 days?: No Contact w/someone who lives/traveled outside US past 30 days?: No Exposure to someone with infectious disease in past 14 days?: No Do you have a fever (greater than 100.4 F or 38 C)?: No Have you tested positive for COVID-19?: No Exposed to someone with COVID-19 in past 14 days?: No Do you have a sore throat?: No Do you have a cough?: No Do you have any weakness?: No Do you have any diarrhea?: No Are you experiencing any unusual bleeding?: No Do you have any muscle aches/pain?: No Do you have any abdominal pain?: No Are you experiencing loss of taste or smell?: No PM Subjective & Objective Subjective Subjective:: Patient is a pleasant 74-year-old female who presents today for follow-up. She does rate her pain today a 5 out of 10. Patient does state from our last visit she did see Dr. Trevizo and she is scheduled for a decompression of what she believes is L5-S1 on October 04. Patient is really hoping that this does improve her symptoms. Patient states that she also did proceed forward with acupuncture however noticed no additional changes with yet. Patient states that she is no longer taking the pregabalin or the ropinirole from our office that she just felt like these were not really making much of an improvement. Patient does also make mention that she is still having increased trouble with her bilateral arms with numbness and tingling going into all of her fingers. She states she really does not notice much pain with the neck except for certain positions. Patient does state that she feels like she would be interested in injections in future however wants to wait until after her procedure. Patient does state that she also notices additional right-sided weakness down the leg that she had not necessarily noticed before and feels like she is also experiencing worsening trouble sleeping. Patient does states she recently had bilateral knee injections from orthopedics and is hoping that this does start to kick in. Her Octavio has been reviewed and is appropriate. Review of Systems: General: No recent weight changes, no fever, no sleep disturbances Respiratory: No cough, no shortness of air, no recurring pulmonary infections Cardiovascular/peripheral vascular: No chest pain, no palpitations, no edema, no shortness of breath Gastrointestinal: No new onset incontinence, normal bowel movements reported Genitourinary: No new onset incontinence Musculoskeletal: Low back pain, bilateral arm numbness tingling Psychiatric: [Normal mood/affect] Neurological: [Denies weakness in extremities], [denies balance issues] Pain at rest (0-10 scale): 5 Objective Objective:: Physical Exam: General: Alert and oriented x3, no acute distress, pleasant and cooperative Lungs: Respirations even and unlabored, symmetrical chest expansion Eyes: PERRL Musculoskeletal: Flexion and extension of lumbar [spine] somewhat guarded secondary to pain, [antalgic gait noted] Neurological: Speech clear, no gross sensory deficit Has patient had previous pain injection?: No Conservative treatment options previously tried: Home exercise plan Length of treatment: Longer than 12 weeks Meds Home Medications and Allergies Home Medications ?Medication ?Instructions ?Recorded ?Confirmed ?Type clonidine HCl 0.1 mg tablet 0.1 mg PO BID 06/23/22 09/25/24 History ergocalciferol (vitamin D2) 1,250 1,250 mcg PO WEEKLY 06/23/22 09/25/24 History mcg (50,000 unit) capsule escitalopram oxalate 20 mg tablet 20 mg PO DAILY 06/23/22 09/25/24 History esomeprazole magnesium 40 mg 40 mg PO DAILY 06/23/22 09/25/24 History capsule,delayed release meloxicam 15 mg tablet 15 mg PO DAILY 06/23/22 09/25/24 History nitroglycerin 0.4 mg sublingual 0.4 mg sublingual Q5-15M PRN Chest 06/23/22 09/25/24 History tablet Pain ropinirole 0.25 mg tablet 0.25 mg PO HS #30 tabs 11/29/23 09/25/24 Rx pregabalin 50 mg capsule 50 mg PO HS #30 caps 07/29/24 09/25/24 Rx pregabalin 50 mg capsule 50 mg PO BID #60 caps 08/01/24 09/25/24 Rx tramadol 50 mg tablet 50 mg PO DAILY #30 tabs 08/22/24 09/25/24 Rx New Prescriptions to Start Prescriptions: Allergies Allergy/AdvReac Type Severity Reaction Status Date / Time codeine AdvReac unkn Verified 09/25/24 09:25 iodine AdvReac unkn' Verified 09/25/24 09:25 Assessment and Plan *Assessment and plan (1) Cervical radiculopathy: Status: Acute Category: Medical Code(s): M54.12 - Radiculopathy, cervical region (2) Degenerative disc disease, lumbar: Status: Acute Category: Medical Code(s): M51.369 - Other intervertebral disc degeneration, lumbar region without mention of lumbar back pain or lower extremity pain Plan I did discuss with the patient due to the fact that she is having upcoming surgery but I will let her be the 1 to call us for her upcoming appointment as her recovery may go longer than anticipated. I did discuss with her in future we can definitely see about doing something for her bilateral arm numbness and tingling including doing some cervical imaging. We will follow-up with this at future visits. Patient has been instructed to contact the clinic with any concerns before the next appointment. Dr. Izquierdo has reviewed this note and agrees with this plan of care. This note was dictated using voice recognition software and make contain errors or omissions. All injections are used with Lidocaine, Bupivacaine and dexamethasone. Occasionally urine drug screen is needed to verify patient's compliance with our office pain contract. This is ordered based off specific treatments related to chronic pain with the potential to abuse certain medications.
[2024-09-25 10:58] VITALS: BP 131/71; PULSE 56; RESP 18; O2SAT 97; BMI 29.5
== END 2024-09-25 23:59 | disposition home or self-care (01) ==
PROVIDERS: PCP Nurse Practitioner Family; Visit Provider Nurse Practitioner Family
DX: M54.12 Radiculopathy, cervical region (principal); M51.360 Other intervertebral disc degeneration, lumbar region with discogenic back pain only
CPT/HCPCS: 99212; G0463

== ENCOUNTER 2025-03-15 14:45 | Outpatient (CLI) | payer MEDICARE, SELFPAY ==
--- OUTSIDE RECORDS SUMMARY | 2025-01-22 12:56 | XMS_ITS | Encounter Summary ---
Author Organization [facility] Address [address] [place] [address] Care Team Providers Care Chain Maker Machine Name Role Phone Kerri Gonzalez APRN Primary Care Provider + [phone] Reason for Referral * Diagnostic Imaging (Routine) - Closed Specialty Diagnoses / Procedures Referred By Lance chadwick Referred To Contact Radiology Diagnoses Encounter for screening mammogram for malignant neoplasm of breast Procedures Mammo Screening Digital Tomosynthesis Bilateral With CAD Guevara Wang DO [address] [place] [address] Phone: tel: fax: Referral ID Status Reason Start Date Expiration Date Visits Re quested Visits Authorized Closed 12/18/2024 03/19/2026 1 1 Reason for Visit * Diagnostic Imaging (Routine) - Closed Specialty Diagnoses / Procedures Referred By Lance chadwick Referred To Contact Radiology Diagnoses Encounter for screening mammogram for malignant neoplasm of breast Procedures Mammo Screening Digital Tomosynthesis Bilateral With CAD Guevara Wang DO [address] [place] [address] Phone: tel: fax: Referral ID Status Reason Start Date Expiration Date Visits Re quested Visits Authorized [id number] Closed 12/18/2024 03/19/2026 1 1 Encounter Details Date Type Department Care Team (Latest Contact Info) Description 01/22/2025 1:56 PM EDT - 01/22/2025 11:59 PM EDT Hospital Encounter [facility] [address] [place] [id number] Guevara Wang, [address] [place] [address] Encounter for screening mammogram for malignant neoplasm of breast Discharge Disposition: Home or Self Care Social History Tobacco Use Types Packs/Day Years Used Date Smoking Tobacco: Never Assessed Comments No Sex and Gender Information Value Date Recorded Sex Assigned at Not on file Legal Sex Female 11:52 AM EST Gender Identity Not on file Sexual Orientation Not on file documented as of this encounter Plan of Treatment Not on file documented as of this encounter Procedures Procedure Name Priority Date/Time Associated Diagnosis Comments MAMMO SCREENING DIGITAL TOMOSYNTHESIS BILATERAL W CAD Routine 01/22/2025 2:16 PM EDT Encounter for screening mammogram for malignant neoplasm of breast documented in this encounter Results * Mammo Screening Digital Tomosynthesis Bilateral With CAD (01/22/2025 2:16 PM EDT) Anatomical Region Laterality Modality Breast N/A Mammography 01/24/2025 4:21 PM EDT Impressions 01/24/2025 4:21 PM EDT No findings suspicious for malignancy. ACR BI-RADS CATEGORY: 1, NEGATIVE RECOMMENDATION: Yearly mammogram, yearly clinical breast exam, and encourage self breast awareness. CAD was used. The standard false negative rate of mammography is between 10% and 25%. Complex patterns or increased breast density will markedly elevate the false negative rate of mammography. A letter, in lay terminology, with the results of this exam will be mailed to the patient. At our facility, a triangular marker is positioned over a palpable area of concern indicated by the patient. A [place] ind[place] tribe marker is placed over a visible skin lesion. A linear marker indicates a scar. If there is a palpable area of concern, biopsy should be considered regardless of imaging findings. 01/24/2025 4:[address] Arabella Cruz MD on Narrative 01/24/2025 4:21 PM EDT DIGITAL SCREENING MAMMOGRAM WITH TOMOSYNTHESIS HISTORY: Routine screening. IMAGE COMPARISON: 01/02/2024, 01/31/2023, 04/21/2022. TECHNIQUE: Low dose full field digital breast tomosynthesis imaging was performed with 2D and 3D acquisitions consisting of bilateral CC and MLO views. FINDINGS: The breasts are heterogeneously dense, which may obscure small masses. The fibroglandular pattern appears stable. There is no mass, worrisome microcalcifications, or architectural distortion to suggest development of malignancy. Guevara Wang DO [facility] ORDER MARIYA Final Result documented in this encounter Visit Diagnoses Diagnosis Encounter for screening mammogram for malignant neoplasm of breast documented in this encounter Care Teams Chain Maker Machine Relationship Specialty Start Date End Date Kerri Gonzalez APRN [address] [place] [address] [place] [place] [address] PCP - General Family Medicine 01/02/24 documented as of this encounter
--- OUTSIDE RECORDS SUMMARY | 2025-03-17 11:06 | XMS_ITS | Clinical Summary ---
Author Organization [facility] ([place], [place], [place], [place], [place]) Address [address] [place] [address] Care Team Providers Care Clay Products Machine Operator Name Role Phone Yo Phan MD Primary Care Provider [phone] Allergies Active Allergy Reactions Criticality Noted Date Comments Povidone-Iodine 05/27/2022 Codeine 05/27/2022 Medications cloNIDine HCL (CATAPRES) 0.1 MG tablet Take by mouth. 05/09/2022 Active escitalopram oxalate (LEXAPRO) 20 MG tablet Take by mouth. 05/09/2022 Active esomeprazole (NexIUM) 40 MG capsule Take by mouth. 05/12/2022 Active levocetirizine (XYZAL) 5 MG tablet Take by mouth. 05/12/2022 Active meloxicam (MOBIC) 15 MG tablet Take by mouth. 05/09/2022 Active montelukast (SINGULAIR) 10 mg tablet Take by mouth. 05/12/2022 Active Active Problems Problem Noted Date Diagnosed Date Acute pain of right knee 11/07/2022 Localized osteoarthritis of left knee 05/31/2022 Localized osteoarthritis of right knee 3 Family History Medical History Relation Name Comments Diabetes Other Osteoporosis Other Relation Name Status Comments Other Social History Tobacco Use Types Packs/Day Years Used Date Smoking Tobacco: Never Smokeless Tobacco: Never Tobacco Cessation:Counseling Given: Not Answered Alcohol Use Standard Drinks/Week Comments Never 0 (1 standard drink = 0.6 oz pur e alcohol) Food Insecurity Answer Date Recorded Food run out past 12 months Not on file 04/24 Food did not last past 12 months Not on file 05/05/2023 Employment Answer Date Recorded Help finding and keeping a job Not on file 0 05/05/2023 Family and Community Support Answer Karlo e Recorded Help with Day to Day Activities Not on file 05/05/2023 Feeling Lonely or Isolated Not on file 05/05 Educational Attainment Answer Date Luis Eduardo rded Speak language other than Trinidadian at home Not on file 05/05/2023 Want help with school or training Not on file 05/05/2023 Substance Use Answer Date Recorded Used prescription meds for non-medical reasons N ot on file 05/05/2023 Used illegal drugs past 12 months Not on file 05/05/2023 Comments Unknown Sex and Gender Information Value Date Recorded Sex Assigned at Not on file Legal Sex Female 5:59 PM CDT Gender Identity Not on file Sexual Orientation Not on file Last Filed Vital Signs Vital Sign Reading Time Taken Comments Blood Pressure 144/84 03/24/2023 11:16 AM EST Pulse 65 03/24/2023 11:16 AM EST Temperature - - Respiratory Rate 18 01/06/2023 11:53 AM EDT Oxygen Saturation - - Inhaled Oxygen Concentration - - Weight 79.6 kg (175 lb 6.4 oz) 03/24/2023 11:16 AM EST Height 162.6 cm (5' 4 ) 03/24/2023 11:16 AM EST Body Mass Index 30.11 03/24/2023 11:16 AM EST Plan of Treatment Health Maintenance Due Date Last Done Comments CT Colonography 1950 Colonoscopy 1950 Colorectal Cancer Screening 1950 DXA SCAN 1950 FOBT/FIT 1950 Fit-DNA (Cologuard) 1950 Sigmoidoscopy 1950 Depression Screening (12+) 1962 Hepatitis C Screening 01/20/1968 Shingles Vaccine (Zoster) (1 of 2) 01/20/2000 Medicare Initial AWV [id number] 04/25/2019 Pneumococcal 50+ years (3 of 3 - PCV20 or PCV21) 08/07/2023 08/06/2018, 04/24/2015, 04/24/2014 Tobacco Cessation Counseling and Screening (12+) 01/16/2024 01/15/2023 Falls Risk Screening 04/24/2024 COVID-19 VACCINE (3 - 5-2 6 season) 2024 07/03/2020, 06/05/2020 Influenza Vaccine (#1) 2024 , 02/24/2022, 01/25/2018, Additional history exists Respiratory Syncytial Virus (RSV) Adult or (1 - 1-dose 75+ series) 2025 DTAP/TDAP/TD VACCINES (4 - T d or Tdap) 06/14/2032 06/14/2022, 06/16/2016, 04/24/2016 Breast Cancer Screening Discontinued 02/01/20, 07/19/2022, 07/19/2022, Additional history exists Insurance [employer] MEDICARE PPO Care Teams Clay Products Machine Operator Relationship Specialty Start Date End Date Yo Phan MD [address] [place] [id number] PCP - General Family Medicine 05/27/22
--- OUTSIDE RECORDS SUMMARY | 2025-03-17 11:06 | XMS_ITS | Encounter Summary ---
Author Organization [facility] Address [address] [place] [address] Care Team Providers Care Veteran Appeals Reviewer Name Role Phone Kerri Gonzalez APRN Primary Care Provider [phone] Encounter Details Date Type Department Care Team (Latest Contact Info) Description 01/22/2025 Travel Social History Tobacco Use Types Packs/Day Years Used Date Smoking Tobacco: Never Assessed Comments No Sex and Gender Information Value Date Recorded Sex Assigned at Not on file Legal Sex Female 11:52 AM EST Gender Identity Not on file Sexual Orientation Not on file documented as of this encounter Plan of Treatment Not on file documented as of this encounter Visit Diagnoses Not on filedocumented in this encounter Care Teams Veteran Appeals Reviewer Relationship Specialty Start Date End Date Kerri Gonzalez APRN [address] [place] [address] [place] [address] PCP - General Family Medicine 01/02/24 documented as of this encounter
--- OUTSIDE RECORDS SUMMARY | 2025-03-17 11:06 | XMS_ITS | Clinical Summary ---
[facility] Organization [facility] Address [address] [place] [address] Care Team Providers Care Trim Mechanic Name Role Phone Kerri Gonzalez RON Primary Care Provider [phone] Encounters Date Type Department Care Team Description 01/22/2025 1:56 PM EDT - 01/22/2025 11:59 [place] [address] Guevara Wang DO Encounter for screening mammogram for malignant neoplasm of breast Discharge Disposition: Home or Self Care 01/22/2025 Travel from Last 3 Months Family History Medical History Relation Name Comments Breast cancer Neg Hx Ovarian cancer Neg Hx Social History Tobacco Use Types Packs/Day Years Used Date Smoking Tobacco: Never Assessed Comments No Sex and Gender Information Value Date Recorded Sex Assigned at Not on file Legal Sex Female 11:52 AM EST Gender Identity Not on file Sexual Orientation Not on file Plan of Treatment Health Maintenance Due Date Last Done Comments ANNUAL WELLNESS VISIT 1950 DXA SCAN 1950 HEPATITIS C SCREENING 1950 COLON CANCER SCREENING 5 YEA R SIGMOIDOSCOPY [address] COLONOGRAPHY 1995 FECAL OCCULT BLOOD TEST 1995 FIT Testing (1 year) 1995 ZOSTER VACCINE (1 of 2) 01/20/2000 Pneumococcal Vaccine 50+ (3 of 3 - PCV20 or PCV21) 08/07/2023 08/06/2018, 04/24/2015, 04/24/2014 INFLUENZA VACCINE 11/22/2024 03/18/2024, , 02/24/2022, Additional history exists COVID-19 Vaccine (3 - 2024-2 6 season) 2024 07/03/2020, 06/05/2020 RSV Vaccine - Adults (1 - 1- dose 75+ series) 2025 COLOGUARD 05/26/2025 05/26/2022 COLORECTAL CANCER SCREENING 05/26/2025 TDAP/TD VACCINES (4 - Td or Tdap) 06/14/2032 06/14/2022, 06/16/2016, 04/24/2016 MAMMOGRAM Discontinued 01/22/2025, 12/23, 01/31/2023, Additional history exists Procedures Procedure Name Priority Date/Time Associated Diagnosis Comments MAMMO SCREENING DIGITAL TOMOSYNTHESIS BILATERAL W CAD Routine 01/22/2025 2:16 PM EDT Encounter for screening mammogram for malignant neoplasm of breast from Last 3 Months Results * Mammo Screening Digital Tomosynthesis Bilateral [...] of concern indicated by the patient. A holy cross marker is placed over a visible skin [...] suggest development of malignancy. Guevara Wang DO IMG MAMMOGRAPHY ORDER MARIYA Final Result from Last 3 Months Insurance [facility] Medicare Advantage GROUP PPO Care Teams Trim Mechanic Relationship Specialty Start Date End Date Kerri Gonzalez APRN [address] [place] [address] PCP - General Family Medicine 01/02/24
--- OUTSIDE RECORDS SUMMARY | 2025-03-17 11:06 | XMS_ITS | Clinical Summary ---
Author Organization [facility] Address [address] [id number] Care Team Providers Care Right Of Way Supervisor Name Role Phone Ariela De Jesus RON Primary Care Provider [phone] Social History Tobacco Use Types Packs/Day Years Used Date Smoking Tobacco: Never Assessed Comments Unknown Sex and Gender Information Value Date Recorded Sex Assigned at Not on file Legal Sex Female 6:56 PM EDT Gender Identity Not on file Sexual Orientation Not on file Plan of Treatment Health Maintenance Due Date Last Done Comments [facility]-Bone Density Scan 1950 [facility]-Depression Screening 1950 [facility]-Hepatitis C Screening 1950 [facility]-Medicare Annual Wellness (AWV) 1950 [facility]-Infant/Child/Adol SDOH Screenings 1950 [facility]- SDOH Screenings 01/20/1968 [facility]-Adult SDOH Screenings 01/20/1968 CT Colonography 1995 Colonoscopy 1995 FIT-DNA 1995 FIT 1995 FOBT 1995 Sigmoidoscopy 1995 [facility]-Colorectal Cancer Screening 1995 [facility]-Zoster Vaccines (1 of 2) 01/20/2000 [facility]-Pneumococcal Vaccine: 50+ Years (3 of 3 - PCV20 or PCV21) 08/07/2023 08/06/2018, 04/24/2015, 04/24/2014 [id number] Vaccine (3 - 2024- season) 2024 07/03/2020, 06/05/2020 [facility]-Influenza Vaccine (#1) 12/23/202403/18, 02/06/2023, 02/24/2022, Additional history exists [facility]-RSV Vaccine: 60+ Years or (1 - 1-dose 75+ series) 2025 [facility]-DTaP,Tdap,and Td Vaccines (4 - Td or Tdap) 06/14/2032 06/14/2022, 06/16/2016, 04/24/2016 [facility]-Breast Cancer Screening Discontinued 12/23, 01/02/2024, 01/31/2023 HPV Vaccines Aged Out No longer eligi ble based on patient's age to complete this topic [facility]-HIB Vaccines Aged Out No longer e ligible based on patient's age to complete this topic [facility]-Hepatitis A Vaccines Aged Out No longer eligible based on patient's age to complete this topic [facility]-IPV Vaccines Aged Out No longer e ligible based on patient's age to complete this topic [facility]-Rotavirus Vaccines Aged Out No lo nger eligible based on patient's age to complete this topic Insurance [facility] MEDICARE Care Teams Right Of Way Supervisor Relationship Specialty Start Date End Date Ariela De Jesus, JAVA GROOVY DEVELOPER [address] [place] [address] PCP - General 09/04/20
--- OUTSIDE RECORDS SUMMARY | 2025-03-17 11:07 | XMS_ITS | Data Portability ---
Author Organization ID - [facility] Address [address] [facility] [address] [facility] [address] [place] [address] Care Team Providers Care Land Acquisition Analyst Name Role Phone WILLIE TELLOJhonny Primary Care Provider Assessment Encounter Date Assessment Date Assessment LastModified by Organization Details LastModified Time 01/15/2024 01/15/2024 Assessment: Ana Lilia Joshi is a 73-year-old presenting to the clinic for imaging follow-up for right lower extremity pain. Patient presents with completed flexion/extension x-rays on 11/09/2023 and lower extremity EMG on 11/22/2023 through [facility]. Patient reports her symptoms are unchanged [...] (11/09/2023) and lower extremity EMG (11/22/2023) through [facility] to reveal stable L1-2 spondylolisthesis in addition to mild early right S1 radiculopathy. Plan: Follow-up as needed Patient candidate for MIS right L4-5 and L5-S1 decompression with possible discectomy, though will call with decision. [email or web address] Not available 01/15/2024 10:55:42 09/23/2024 09/23/2024 Mrs. 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 I think she is most symptomatic from the right L5-S1 lateral recess stenosis and proposed amicroscopic decompression there. I would also include L4-5, as there is significant nerve impingement visualized there also. The risks and benefits of this procedure were detailed. Specific risks that we discussed included general anesthesia, infection, failure to relieve pain and spinal fluid leakage. I think that she will do well from this. She will speak with Kelly, our surgery coordinator, and find a date for surgery. [email or web address] Not available 09/23/2024 16:02:11 11/14/2024 11/14/2024 Assessment: Ana Lilia Joshi is a 74-year-old presenting to the clinic status post MIS right L4-5 and L5-S1 decompression on 10/04/2024. Prior to surgery, patient was reporting low back pain with significant right lateral lower extremity pain. To follow surgery, patient reports complete resolution of radicular pain. Patient reports continued paresthesia at times to the lateral aspect of right calf as well as pain to bilateral low back at the waistline. Discussed patient's pain to her low back may improve in time, though the goal of the surgery was to improve her radicular symptoms. If patient's pain does not improve within the next several months as she is further out from surgery, patient can consider undergoing evaluation treatment with pain management for lumbar MBB/RFA. Patient voices agreement. Patient constructive bend and twist and lift up to 20 to 25 pounds, with 5 pound increase each week. Patient is aware she should listen to her body when dictating what activity she is able to precipitate in early in her recovery. Patient to follow-up on an as needed basis with our clinic. Patient to contact her clinic with questions or concerns in the future. Imaging: No new imaging to review at this time. Plan: Follow-up as needed [email or web address] Not available 11/14/2024 18:21:47 Plan of Treatment Reminders Order Date Submit [...] 2 or 3 view, bendi ng only [address] [address] Krystyna chadwick Name: DEANNA chadwick : [address] Orderi ng Provid er: MIAN GONZALEZ EXAM DATE: 2023 EXAM: XR LUMBAR SPINE FLEX/E XT ONLY HISTOR Y: Low back pain COMPAR DIYA: None. FINDIN GS: There is minima l operations controller ior listhe sis of L1 on L2. [...] turcios MD on 024 10:46 AM [email or web address] [facility] Radiology [facility] [address] [place], [address], 11/30/2023 11:13:52 11/13/19 24 09/13/2023 XR, lumbo sacra l spine , 2 or 3 view No observ ation record ed. BARCODE Not Available 2023 11:39:46 11/23/19 24 11/22/2023 nerve condu ction study /EMG, lower extre mity (PROC ) No observ ation record ed. [email or web address] Stanislav Mak MD [address] [place], [address], 12/26/2023 08:31:22 09/25/19 25 07/03/2024 XR, lumbo sacra l spine , 2 or 3 view No observ ation record ed. BARCODE Not Available 2024 08:44:58 09/25/19 25 08/01/2024 MRI, lumba r spine , w/o contr ast No observ ation record ed. BARCODE Not Available 2024 08:44:59 Result Notes None recorded. Procedures Surgical History Date Name Laterality Status Provider Name and Address Organization Details Recorded Time 11/22/19 24 Electromyography (EMG) with Nerve Conduction Study (NCV) completed Pillai (Nicky) [facility] 11/22/2023 16:48:49 Imaging Results None recorded. Procedure Notes None recorded. Medical Equipment None Reported. Allergies Allergen ID Allergen Name Allergen Category Reaction Reaction Severity Criticality Documentation Date Start Date Code Code System Note Provider Name and Address Organization Details Recorded Time 864387 codeine medicatio n Not available Not available Not available 11/09/2023 2670 RxNorm Alyssa Penn [facility] 4 08:44:31 426678 Betadine medicatio n Not available Not available Not available 11/09/2023 11278 0 RxNorm Alyssa Penn [facility] 4 08:44:48 Medications Name Sig Start Date Stop Date Status Note LastModified by Organization Details LastModified Time Compound Rx Alternative s Neuropathic Pain Cream Apply 1-2 gms (1-2)pump s) to affected area 3 time a day 2023 active Not Available Not Available Not Avai lable Compound Rx Alternative s Neuropathic Pain Cream Apply 1-2 GMs (1-2 pumps) to affected area 3-4 times daily 2024 active Not Available Not Available Not Avai lable amoxicillin 500 mg capsule TAKE (1) CAPSULE BY MOUTH TWICE DAILY. 11/08 completed Not Available Not Available Not Available fluconazole 100 mg tablet TAKE 1 TABLET BY MOUTH ONCE. MAY REPEAT IN 3 DAYS IF NO IMPROVEME NT. active Not Available Not Available No t Available clonidine HCl 0.1 mg tablet TAKE (1) TABLET BY MOUTH TWICE A DAY. active Not Available Not Available No t Available prednisone 10 mg tablet TAKE (1) TABLET BY MOUTH TWICE A DAY. active Not Available Not Available No t Available azithromyci n 250 mg tablet TAKE 2 TABLETS BY MOUTH THE 1ST DAY, THEN TAKE 1 TABLET BY MOUTH EVERY DAY FOR 4 DAYS active Not Available Not Available No [...] Not Available Not Available No t Available ciprofloxac in 500 mg tablet TAKE (1) TABLET BY MOUTH TWICE A DAY. active Not Available Not Available No t Available tramadol 50 mg tablet TAKE (1) TABLET BY MOUTH EVERY SIX HOURS NEEDED. active Not Available Not Available No [...] Not Available Not Available No t Available triamcinolo ne acetonide 0.1 % topical ointment APPLY TO THE AFFECTED AREA ON EAR TWICE DAILY FOR 3 WEEKS THEN STOP FOR 1 WEEK. REPEAT NEEDED. AVOID USE ON THE FACE, ARMPITS AND GROIN. active Not Available Not Available No t [...] Not Available Not Available No t Available albuterol sulfate HFA 90 mcg/actuati on aerosol inhaler INHALE 1 PUFF BY MOUTH EVERY 4 HOURS NEEDED FOR WHEEZING active Not Available Not Available No t Available cefdinir 300 mg capsule TAKE 1 CAPSULE BY MOUTH EVERY 12 HOURS active Not Available Not Available No t Available fluticasone propionate 50 mcg/actuati on nasal spray,suspe nsion USE 1 SPRAY IN EACH NOSTRIL ONCE DAILY active Not Available Not Available No t Available doxycycline hyclate 100 mg tablet TAKE (1) TABLET BY MOUTH [...] active Not Available Not Available Not Available pregabalin 50 mg capsule TAKE 1 CAPSULE BY MOUTH AT BEDTIME active Not Available Not Available No t Available Mounjaro 2.5 mg/0.5 mL subcutaneou s pen injector INJECT 2.5 MG UNDER SKIN ONCE WEEKLY active Not Available Not Available No t Available Ozempic 0.25 mg or 0.5 mg (2 mg/3 mL) subcutaneou s pen injector INJECT 0.25MG SUB-Q ONCE A WEEK FOR 4 WEEKS, THEN INCREASE TO 0.5MG ONCE A WEEK. active Not Available Not Available No t Available Vitals Date Recorded Body height Provider Name an d Address Organization Details Last Updated DateTime 09/23/2024 162.56 cm [facility] 09/23/2024 15:25:33 Date Recorded Body height Provider Name an d Address Organization Details Last Updated DateTime 11/14/2024 162.56 cm [facility] 11/14/2024 11:54:50 Date Recorded Body height Body mass index (BMI) Body weight Systolic And Diastolic Provider Name and Address Organization Details Last Updated DateTime 01/15/2024 162.56 cm 29.7 kg/m2 76293.48 g 122/80 mm[Hg] Alyssa Penn [facility] 01/15/2024 09:44:59 Social History None recorded. Functional Status [...] Diagnosis SNOMED-CT Code Diagnosis ICD10 Code Diagnosis IMO Codes Diagnosis Note [id number] PATI CAMPOVERDE APRN [facility] [address] [place] [address] 11/09/2023 08:31:32 11/10/2023 04:05:57 Lumbar spondylosis 344038763 M47.896 Lumbar radiculopathy 128 493935 M54.16 Scoliosis deformity of spine 358957131 M41.9 [id number] STANISLAV MAK MD NEUROLOGY [facility] [address] [address] 11/22/2023 15:13:53 11/28/2023 14:22:40 Chronic low back pain 897125034 M54.50 Pain in ri ght lower limb 048772061 M79.604 Paresthesi a of lower extremity 116136937 R20.2 [id number] SHAHEED HUYNH PA-C [facility] [address] [place] [address] 01/15/2024 09:25:44 01/16/2024 04:41:48 Lumbar radiculopathy 863510904 M54.16 [id number] BRAVO GONZALEZ MD NEUROSURG [facility] [address] [place] [address] 09/23/2024 15:04:20 09/24/2024 04:42:32 Lumbar radiculopathy 188789057 M54.16 [id number] BRAVO GONZALEZ MD SURGERY SCHEDULE [address] [place] [address] 10/04/2024 10:34:54 10/04/2024 10:35:10 [id number] SHAHEED HUYNH PA-C NEUROSURG [facility] [address] [place] [address] 11/14/2024 11:44:20 11/15/2024 04:10:06 Postoperative visit 791691796 Z48.89 [id number] Health Concerns Section Related Observation LastModified by Organization Detai ls LastModified Time None Recorded Concern Status LastModified by Organization Details LastModified Time None Recorded Advance Directives Directive None Recorded Payers Insurance Date Sequence Insurance Name Policy Number Policy Wright Covered Member ID Wright Member ID Guarantor Name 11/14/2024 1 [employer] (MEDICARE REPLACEMENT/A DVANTAGE - PPO) Deanna Joshi [id number] Deanna Joshi Notes Date Note Type Note Provider Name and Address Organization Details Recorded Time 01/15/2024 text/html ROS as noted in the HPI Deanna Joshi is a 73-year-old presenting to the clinic for imaging follow-up for right lower extremity pain. Patient presents with completed flexion/extension x-rays on 11/09/2023 and lower extremity EMG on 11/22/2023 through [facility]. Patient reports her symptoms are unchanged [...] was seen by both Dr. Gonzalez and I in clinic today SHAHEED HUYNH PA-C [address] [place], [address], [facility] 01/15/2024 10:55:57 09/23/2024 text/html ROS as noted in the HPI Velma Joshi is a 74-year-old female with low back, right buttock and posterior leg pain. She presents with an updated MRI of the lumbar spine ordered by Aisha Gupta APRN. The MRI was performed at [facility] on August 01, 2024. BRAVO GONZALEZ MD [address] [place], [address], [facility] 09/23/2024 16:02:38 11/14/2024 text/html ROS as noted in the HPI Deanna Joshi is a 74-year-old presenting to the clinic status post MIS right L4-5 and L5-S1 decompression on 10/04/2024. Prior to surgery, patient was reporting low back pain with significant right lateral lower extremity pain. To follow surgery, patient reports complete resolution of radicular pain. Patient reports continued paresthesia at times to the lateral aspect of right calf as well as pain to bilateral low back at the waistline. Patient reports previous completion of LESI with pain management. Patient denies bowel/bladder incontinence, saddle anesthesia and lower extreme weakness. Patient was seen by both Dr. Gonzalez and Renetta in clinic today. SHAHEED HUYNH PA-C [address] [place], [address], [facility] 11/14/2024 18:22:06 OBGyn Episode No OBEpisode recorded.
--- OUTSIDE RECORDS SUMMARY | 2025-03-17 11:07 | XMS_ITS | Continuity of Care Document ---
[facility] Organization [facility] Address [address] [place] [address] Assessment No assessment recorded. Plan of Treatment Reminders Order Date Submit Date Provider Last Modified By Organization Details Last Modified Time Details Appointments None recorded. Lab None recorded. Referral None recorded. Procedures None recorded. Surgeries None recorded. Imaging None recorded. Medication Orders clonidine HCl 0.[address] mg tablet [address] [facility], [address] [place], [address], 14:20:31 ergocalcife rol (vitamin D2) 1,250 mcg (50,000 unit) capsule [address] [facility], [address] [place], [address], 09:04:54 esomeprazol e magnesium 40 mg capsule,del ayed release [address] [facility], [address] [place], [address], 14:20:30 Patient TargetsNo targets recorded. Patient InstructionsNo instructions recorded. Reason for Referral None Reported. Results Created Date Observation Date Name Description Value Unit Range Abnormal Flag Note LastModifiedBy Organization Detail LastModifiedTime 01/30/2001/22/2025 MAMMO , scree mae, tomos ynthe sis, bilat eral, w/ CAD No observ ation record ed. [facility] [address], [address], [place], [address], 01/31/2025 12:55:01 02/04/2001/22/2025 MAMMO , scree mae, tomos ynthe sis, bilat eral No observ ation record ed. [facility] [address], [place], [address], 02/04/2025 12:56:53 Result Notes None recorded. Problems Name Problem SNOMED Code Status Onset Date Resolution Date Notes Provider Name and Address Organization Details Recorded Time Anxiety 31823592 Active Pat Acharya [facility], [place] - [facility] 2 09:50:16 Osteoarthriti s 088768580 Active 2022 Kerri Gonzalez, [employer] [address], [place], [address] , [place] - [facility] 3 09:20:27 Gastroesophag eal reflux disease 364308875 Active 2022 Kerri Gonzalez [employer] [address], [place], [address] , [place] - [facility] 3 09:20:21 Vitamin D deficiency 87175494 Active 2022 Kerri Gonzalez [employer] [address], [place], [address] , [place] - [facility] 3 09:34:09 Congestion of nasal sinus 53097698 Active 2024 Sivan Reeves [employer] [address], [place], [address] , [place] - [facility] 5 11:43:24 Acute bronchitis 98916675 Active 2024 Sivan Reeves APRN [address], [place], [address] , [place] - [facility] 5 11:44:12 Essential hypertension 08531772 Active 2024 Kerri Gonzalez APRN [address], [place], [address] , [place] - [facility] 14:40:26 Restless legs syndrome 24409904 Active 2024 Kerri Gonzalez, [employer] [address], [place], [address] , [place] - [facility] 5 14:40:48 Neuropathic pain 474655505 Active 2024 Kerri Gonzalez, PUBLIC [employer]ESS [employer] [address], [place], [address] , [place] - [facility] 14:40:57 Problem Notes None recorded. Procedures Surgical History Date Name Laterality Status Provider Name and Address Organization Details Recorded Time 01/23/20 25 Date of Last Mammogram completed Jackie Stears [place] - [facility] 01/30/2025 08:43:01 09/03/19 25 OMT completed Gideon Marques DO [address], [place], [address], [place] - [facility] 09/02/2024 14:39:05 08/21/19 25 Advance Care Planning completed Pat Acharya [place] - [facility] 08/20/2024 14:03:52 08/21/19 25 Functional Status Assessed completed Pat Acharya [place] - [facility] 08/20/2024 14:03:52 03/14/20 23 Advance Care Planning completed Jackie Stears [place] - [facility] 03/14/2023 08:53:11 03/14/20 23 Functional Status Assessed completed Jackie Stears [place] - [facility] 023 08:53:11 04/12/20 22 Cerumen Removal completed Jackie Stears [place] - [facility] 04/12/2022 09:58:32 colonoscopy completed Jackie Stears [place] [facility] 03/14/2023 09:08:44 Back Surgery completed Jackie Stears [place] [facility] 10/21/2024 14:00:26 Imaging Results None recorded. Procedure Notes None recorded. Medical Equipment None Reported. Allergies Allergen ID Allergen Name Allergen Category Reaction Reaction Severity Criticality Documentation Date Start Date Code Code System Note Provider Name and Address Organization Details Recorded Time 563112 iodine medicatio n itching moderate high 03/08/2022 5933 RxNorm Pat rodriguez, [place] - [facility] 09:48:06 694895 codeine medicatio n Not available Not available Not available 03/07/2025 2670 RxNorm Not Available bambi - External Data Service - prod 5 13:28:49 161003 Betadine medicatio n Not available Not available Not available 03/07/2025 40949 0 RxNorm Not Available [facility] External Data Service - [facility] 5 13:28:49 Medications Name Sig Start Date Stop Date Status Note LastModified by Organization Details LastModified Time amoxicill in 500 mg capsule TAKE (1) CAPSULE BY MOUTH TWICE DAILY. 05/26 completed Not Available Not Available Not Available fluconazo le 100 mg tablet TAKE 1 TABLET BY MOUTH ONCE. MAY REPEAT IN 3 DAYS IF NO IMPROVEM ENT. 07/26 completed Not Available Not Available Not Available clonidine HCl 0.1 mg tablet TAKE (1) TABLET BY MOUTH TWICE A DAY. active Not Available Not Available No t Available prednison e 10 mg tablet TAKE (1) TABLET BY MOUTH TWICE A DAY. 08/20 completed Not Available Not Available Not Available Saline Mist 0.65 % nasal spray aerosol Take 1 spray every hour by nasal route as needed. 2024 active Not Available Not Available Not Avai lable clindamyc in HCl 300 mg capsule TAKE (1) CAPSULE BY MOUTH TWICE DAILY. 12/20 completed Not Available Not Available Not Available azithromy heather 250 mg tablet TAKE 2 TABLETS BY MOUTH THE 1ST DAY, THEN TAKE 1 TABLET BY MOUTH EVERY DAY FOR 4 DAYS 07/08 completed Not Available Not Available Not Available ibuprofen 800 mg tablet TAKE 1 TABLET EVERY 6-8 HOURS 05/26 completed Not Available Not Available Not Available meloxicam 15 mg tablet TAKE 1 TABLET BY MOUTH ONCE A DAY. active Not Available Not Available No t Available prednison e 20 mg tablet TAKE (1) TABLET BY MOUTH TWICE A DAY. active Not Available Not Available No t Available Pyridium 100 mg tablet Take 1 tablet 3 times a day by oral route for 2 days. 02/06 completed Not Available Not Available Not Available penicilli n V potassium 500 mg tablet TAKE 1 TABLET FOUR TIMES DAILY UNTIL ALL ARE TAKEN 03/14 completed Not Available Not Available Not Available ciproflox acin 500 mg tablet TAKE (1) TABLET BY MOUTH TWICE A DAY. 09/30 completed Not Available Not Available Not Available tramadol 50 mg tablet TAKE (1) TABLET BY MOUTH EVERY SIX HOURS NEEDED. active Not Available Not Available No t Available amoxicill in 500 mg tablet Take 1 tablet twice a day by oral route for 10 days. 05/26 completed Not Available Not Available Not Available ceftriaxo ne 1 gram solution for injection Take 1 g by injectio n route. 01/23 completed Not Available Not Available Not Available ropinirol e 0.25 mg tablet TAKE 1 TABLET BY MOUTH 1-3 HOURS BEFORE BEDTIME. active Not Available Not Available No t Available benzonata te 100 mg capsule Take 1 capsule twice a day by oral route as needed for 5 days. 2024 active Not Available Not Available Not Avai lable cephalexi n 500 mg capsule TAKE (1) CAPSULE BY MOUTH TWICE DAILY. active Not Available Not Available No t Available erythromy heather 5 mg/gram (0.5 %) eye ointment APPLY 1 CM RIBBON INTO THE LOWER CONJUNCT IVAL SAC(S) IN THE AFFECTED EYE(S) BY OPHTHALM IC ROUTE 2 TIMES PER DAY 03/18 completed Not Available Not Available Not Available esomepraz ole magnesium 40 mg capsule,d elayed release TAKE (1) CAPSULE BY MOUTH ONCE A DAY. active Not Available Not Available No t Available triamcino lone acetonide 0.1 % topical ointment APPLY TO THE AFFECTED AREA ON EAR TWICE DAILY FOR 3 WEEKS THEN STOP FOR 1 WEEK. REPEAT NEEDED. AVOID USE ON THE FACE, ARMPITS AND GROIN. active Not Available Not Available No t Available nitroglyc shahnaz 0.4 mg sublingua l tablet DISOLVE IN MOUTH NEEDED FOR CHEST PAIN. active Not Available Not Available No t Available omeprazol e 20 mg capsule,d elayed release TAKE (1) CAPSULE BY MOUTH ONCE A DAY. 06/14 completed Not Available Not Available Not Available monteluka st 10 mg tablet Take 1 tablet every day by oral route. active Not Available Not Available No t Available ergocalci ferol (vitamin D2) 1,250 mcg (50,000 unit) capsule Take 1 capsule every week by oral route. 2024 active Not Available Not Available Not Avai lable dexametha sone sodium phosphate 4 mg/mL injection solution Inject 1 mL as needed by intramus cular route. 01/23 completed Not Available Not Available Not Available levofloxa heather 500 mg tablet Take 1 tablet every 24 hours by oral route for 5 days. 12/15 completed Not Available Not Available Not Available levofloxa heather 750 mg tablet TAKE ONE TABLET BY MOUTH ONCE DAILY FOR 7 DAYS. 02/24 completed Not Available Not Available Not Available methylpre dnisolone 4 mg tablets in a dose pack TAKE 6 TABS ON DAY 1, TAKE 5 TABS ON DAY 2, TAKE 4 TABS ON DAY 3, TAKE 3 TABS ON DAY 4, TAKE 2 TABS ON DAY 5, TAKE 1 ON DAY 6. TAKE WITH FOOD. 05/26 completed Not Available Not Available Not Available albuterol sulfate HFA 90 mcg/actua tion aerosol inhaler INHALE 1 PUFF BY MOUTH EVERY 4 HOURS NEEDED FOR WHEEZING active Not Available Not Available No t Available hydroxyzi ne HCl 10 mg tablet TAKE (1) TABLET BY MOUTH TWICE A DAY NEEDED. 03/08 completed Not Available Not Available Not Available cefdinir 300 mg capsule TAKE 1 CAPSULE BY MOUTH EVERY 12 HOURS 08/20 completed Not Available Not Available Not Available fluticaso ne propionat e 50 mcg/actua tion nasal spray,km pension USE 1 SPRAY IN EACH NOSTRIL ONCE DAILY active Not Available Not Available No t Available doxycycli ne hyclate 100 mg tablet TAKE (1) TABLET BY MOUTH TWICE A DAY. 08/20 completed Not Available Not Available Not Available escitalop desiree 20 mg tablet TAKE 1 TABLET BY MOUTH ONCE A DAY. active Not Available Not Available No t Available Premarin 0.625 mg/gram vaginal cream INSERT 0.5 APPLICAT ORFUL EVERY DAY BY VAGINAL ROUTE. active Not Available Not Available No t Available ORTHOVISC 30 mg/2 mL intra-art icular syringe 05/26 completed Not Available Not Available Not Available pregabali n 50 mg capsule TAKE 1 CAPSULE BY MOUTH AT BEDTIME 09/10 completed Not Available Not Available Not Available levocetir izine 5 mg tablet TAKE 1 TABLET BY MOUTH ONCE A DAY. active Not Available Not Available No t Available Saxenda 3 mg/0.5 mL (18 mg/3 mL) subcutane ous pen injector Inject 0.6 mg every day by subcutan eous route. 08/30 completed Not Available Not Available Not Available Ozempic 0.25 mg or 0.5 mg (2 mg/1.5 mL) subcutane ous pen injector Inject 0.25 mg every week by subcutan eous route. 01/10 completed Not Available Not Available Not Available Wegovy 0.25 mg/0.5 mL subcutane ous pen injector Inject 0.25 mg every week by subcutan eous route. 08/30 completed Not Available Not Available Not Available Mounjaro 2.5 mg/0.5 mL subcutane ous pen injector INJECT 2.5 MG UNDER SKIN ONCE WEEKLY 03/18 completed made her too sick, made her constipa tion worse Not Available Not Available Not Available Ozempic 0.25 mg or 0.5 mg (2 mg/3 mL) subcutane ous pen injector INJECT 0.25MG SUB-Q ONCE A WEEK FOR 4 WEEKS, THEN INCREASE TO 0.5MG ONCE A WEEK. 01/10 completed Not Available Not Available Not Available Vitals Date Recorded Body height Body mass index (BMI) Body weight Heart rate Oxygen saturation Respiratory rate Pain severity - 0-10 verbal numeric rating [Score] - Reported Body temperature Systolic And Diastolic Provider Name and Address Organization Details Last Updated DateTime 5 162.56 cm 29.7 kg/m2 37717.4 8 g 63 /min 98 % 18 /min 0 97.9 [degF] 132/78 mm[Hg] Pat Acharya [place] - [facility] 5 13:53:21 Social History Question Answer Notes LastModified by Organizat ion Details LastModified Time Tobacco Smoking Status Never Smoker Pat rodriguez, [place] - [facility] 03/08/2022 09:51:17 Do You Have An Advance Directive? No Information n ot available 06/14/2022 Are You Blind Or Do You Have Difficulty Seeing? No Information n ot available 06/14/2022 What Is Your Level Of Caffeine Consumption? Occasional Information not available 06/14/2022 In The 14 Days Before Symptom Onset, Have You Had Close Contact With A Laboratory-confirm ed COVID-19 While That Case Was Ill? No Information n ot available 06/14/2022 In The 14 Days Before Symptom Onset, Have You Had Close Contact With A Person Who Is Under Investigation For COVID-19 While That Person Was Ill? No Information not available 06/14/2022 Have You Been To An Area Known To Be High Risk For COVID-19? No Information not available 06/14/2022 Are You Deaf Or Do You Have Serious Difficulty Hearing? No Information not available 06/14/2022 What Type Of Diet Are You Following? REGULAR Information n ot available 06/14/2022 Have You Processed Blood Or Body Fluids From An Ebola Virus Disease Patient Without Appropriate PPE? No Information not available 06/14/2022 Do You Reside In Or Have You Traveled To An Area Where Ebola Virus Transmission Is Active? No Information not available 06/14/2022 What Is The Highest Grade Or Level Of School You Have Completed Or The Highest Degree You Have Received? [id number] Information not available 03/14/2023 Have There Been Any Changes To Your Family Or Social Situation? No Information no t available 06/14/2022 What Is The Fluoride Status Of Your Home? Fluoridated Information not available 06/14/2022 Have You Recently Or Are You Planning To Travel To An Area With Zika Virus? No Information not available 06/14/2022 Do You Have A Medical Power Of Stage Settings Painter? No Information not available 06/14/2022 What Was The Date Of Your Most Recent Tobacco Screening? 09/10/2024 [email or web address] Information not available 09/10/2024 What Is Your Relationship Status? Information not available 06/14/2022 Do You Have Smoke And Carbon Monoxide Detectors In Your Home? Yes Information not available 06/14/2022 Are You Passively Exposed To Smoke? No Information no t available 06/14/2022 Has Tobacco Cessation Counseling Been Provided? No Information not available 06/14/2022 Do You Have Difficulty Walking Or Climbing Stairs? No Information not available 06/14/2022 Sex: Female Functional Status Question Answer Note LastModified by Organizat [employer] Details LastModified Time Do you use any illicit or recreational drugs? No Information not available 06/14/2022 Do you or have you ever used any other forms of tobacco or nicotine? No Information not available 03/14/2023 What is your level of alcohol consumption? None Information not available 06/14/2022 Are you currently employed? No Information not available 06/14/2022 Do you have transportation difficulties? No Information not available 06/14/2022 Are you able to walk independently without assistance or assistive devices? YESWOREST Information not available 06/14/2022 Do you have difficulty doing errands alone? No Information not available 06/14/2022 Are you able to care for yourself independently? Yes Information not available 06/14/2022 Do you have difficulty dressing, bathing, grooming, or toileting? No Information not available 06/14/2022 What is your exercise level? None Information not available 12/20/2022 Mental Status Question Answer Note LastModified by Organizat [employer] Details LastModified Time Do you feel stressed (tense, restless, nervous, or anxious, or unable to sleep at night)? [id number] Information not available 12/20/2022 Do you have difficulty concentrating, remembering or making decisions? No Information no t available 06/14/2022 Family History Relationship Description Onset Age of this Age Resolved Age Notes LastModified by Organization Details LastModified Time Father No current problems or disability [email or web address] Not available 12/20 14:13:36 Mother No current problems or disability [email or web address] Not available 12/20 14:13:36 Medical History No medical history recorded. Gynecological History Statement/Question Response Abnormal Pap N Date of Last Colonoscopy Date of Last Mammogram 01/22/2025 Most Recent Bone Density Menses Monthly N Date of Last Pap Smear LMP Unknown Obstetrics History GPAL:G 2 P 2 0 0 2 Type Value Multiple Births 0 Full Term 2 Induced 0 Spontaneous 0 Premature 0 Living 2 Ectopics 0 Total 2 Immunizations Vaccine Type Date Status Note Provider Nam e and Address Organization Details Recorded Time Influenza, high-dose, quadrivalent, PF 2 completed Jackie Stears null, [place] - [facility] 02/24/2022 16:47:05 Tdap 3 completed Kerri Gonzalez, PUBLIC ADDRESS [employer]ICER [address], [place], [address], [facility] - [facility] 06/14/2022 10:11:22 Influenza, high-dose, quadrivalent, PF 3 completed Kerri Gonzalez, PUBLIC ADDRESS [employer]IC[employer] [address], [place], [address], [facility] - [facility] 02/06/2023 11:16:51 Influenza, high-dose, trivalent, PF 4 completed Pat Acharya null, [facility] 03/18/2024 15:11:59 Pneumococcal conjugate PCV20, polysaccharide [id number] conjugate, adjuvant, PF 5 completed Pat Acharya null, [facility] 01/27/2025 16:55:26 Influenza, high-dose, trivalent, PF 5 completed Jackie Stears null, [facility] 02/27/2025 11:03:39 Influenza, split virus, trivalent, PF 2 completed [place] [facility] 02/24/2022 10:49:36 Tdap 7 completed [place] [facility] 02/24/2022 10:49:36 Influenza, split virus, quadrivalent, PF 1 completed [place] [facility] 02/24/2022 10:49:36 Tdap 7 completed [place] [facility] 02/24/2022 10:49:36 VZIG 2 completed [place] [facility] 02/24/2022 10:49:36 COVID-19, mRNA, LNP-S, PF, 100 mcg/0.5mL dose or 50 mcg/0.25mL dose 1 completed Jackie Stears null, [place] - [facility] 02/24/2022 10:49:36 pneumococcal polysaccharide PPV23 5 completed Jackie Ste[place] [facility] 02/24/2022 10:49:36 Pneumococcal conjugate PCV 13 6 completed Jackie Ste[place] [facility] 02/24/2022 10:49:36 COVID-19, mRNA, LNP-S, PF, 100 mcg/0.5mL dose or 50 mcg/0.25mL dose 1 completed [place] [facility] 02/24/2022 10:49:36 Influenza, MDCK, quadrivalent, PF 8 completed Jackie Stears null[place] - [facility] 02/24/2022 10:49:36 Pneumococcal conjugate PCV 13 9 completed Jackie [place] [facility] 02/24/2022 10:49:36 Past Encounters Encounter ID Performer Location Encounter Start Date Encounter Closed Date Diagnosis/Indication Diagnosis SNOMED-CT Code Diagnosis ICD10 Code Diagnosis IMO Codes Diagnosis Note [id number] Kerri Gonzalez APRN [address] [address] 01/27/2025 13:24:55 01/27/2025 14:14:24 Essential hypertension 88851602 I10 00749 Vitamin D deficiency 347 87449 E55.9 Hypertensive disorder 38 230151 I10 Gastroesop hageal reflux disease 015697397 K21.9 Allergic rhinitis 251916 04 J30.9 34769825 start back on allergy med,if worsen or no improvemen t return Active immunization 3387 9002 Z23 74640713 Health Concerns Section Related Observation LastModified by Organization Detai ls LastModified Time None Recorded Concern Status LastModified by Organization Details LastModified Time None Recorded Payers Encounter Date Sequence Insurance Name Policy Number Policy Wright Covered Member ID Wright Member ID Guarantor Name 01/27/2025 1 [employer] (MEDICARE REPLACEMENT/A DVANTAGE - PPO) Deanna Joshi [id number] Deanna Joshi Notes Date Note Type Note Provider Name and Address Organization Details Recorded Time 01/27/2025 text/html ROS as noted in the HPI 75 yr old female presents for a pneumonia vaccine, sinus pressure, and a few medications refilled for chronic conditions such as htn,gerd,vit d tricia, Kerri Gonzalez, PUBLIC [employer]DRESS [employer]IC[employer] [address], [place], [address], [place] - [facility] 01/27/2025 14:13:38 OBGyn Episode No OBEpisode recorded.
--- OUTSIDE RECORDS SUMMARY | 2025-03-17 11:07 | XMS_ITS | Data Portability ---
Author Organization [facility] Address [address] [place] [address] Assessment No assessment recorded. Plan of Treatment Reminders Order Date Submit Date Provider Last Modified By Organization Details Last Modified Time Details Appointments None recorded. Lab urinalysis, dipstick 2024 025 [facility], [address] [place] [address], [address], 15:10:38 culture, urine 2024 025 B[facility], [address], [address], [place], [address], 5 01:06:28 urinalysis, dipstick 2024 025 [facility], [address] [place] [address], [address], 5 14:43:12 vaginal pathogens panel, SUSAN+probe, vaginal fluid 2024 025 BAMBI [facility], [address], [address], [place], [address], 5 16:08:17 culture, urine 2024 025 [facility], [address], [address], [place], [address], 5 16:08:18 urinalysis, dipstick 2024 025 [facility], [address] [facility], [place], [address], 14:51:07 Referral None recorded. Procedures None recorded. Surgeries None recorded. Imaging XR, lumbosacral spine, 2 or 3 view [address] [place], [address], 04:03:25 XR, sacrum + coccyx 2024 025 [facility], [address] [place] [address] [place], [address], 18:27:11 Medication Orders cephalexin 500 mg capsule 2024 025 [facility], [address] [place], [address], 15:08:19 prednisone 20 mg tablet 2024 025 [facility], [address] [place], [address], 5 15:08:25 benzonatate 100 mg capsule 2024 025 [facility], [address] [place], [address], 5 15:08:15 clonidine HCl 0.1 mg tablet 2024 025 [facility], [address] [place], [address], 5 14:20:31 ergocalcife rol (vitamin D2) 1,250 mcg (50,000 unit) capsule 2024 025 [facility], [address] [place], [address], 09:04:54 esomeprazol e magnesium 40 mg capsule,del ayed release 2024 025 [facility], [address] [place], [address], 14:20:30 Patient TargetsNo targets recorded. Patient InstructionsNo instructions recorded. Reason for Referral None Reported. Results Created Date Observation Date Name Description Value Unit Range Abnormal Flag Note LastModifiedBy Organization Detail LastModifiedTime 10/01/1909/30/2024 urina lysis , dipst ick Leukocytes Negati ve Not Available [address], [address], 09/30/2024 11:22:28 10/01/19 25 09/30/2024 urina lysis , dipst ick Nitrite negati ve Not Available [address], [address], 09/30/2024 11:22:28 10/01/1909/30/2024 urina lysis , dipst ick Urobilinogen .2 Not Available Maik [address], [address], 09/30/2024 11:22:28 10/01/19 25 09/30/2024 urina lysis , dipst ick Protein Negati ve Not Available [address], [address], 09/30/2024 11:22:28 10/01/19 25 09/30/2024 urina lysis , dipst ick pH 5.5 Not Available [address], [address], 09/30/2024 11:22:28 10/01/19 25 09/30/2024 urina lysis , dipst ick Blood Negati ve Not Available [address], [address], 09/30/2024 11:22:28 10/01/19 25 09/30/2024 urina lysis , dipst ick Specific Greenwood 1.030 Not Available [address], [address], 09/30/2024 11:22:28 10/01/19 25 09/30/2024 urina lysis , dipst ick Ketone Negati ve Not Available [address], [address], 09/30/2024 11:22:28 10/01/19 25 09/30/2024 urina lysis , dipst ick Bilirubin Negati ve Not Available [address], [address], 09/30/2024 11:22:28 10/01/19 25 09/30/2024 urina lysis , dipst ick Glucose Negati ve Not Available [address], [address], 09/30/2024 11:22:28 10/01/19 25 09/30/2024 urina lysis , dipst ick Appearance Clear Not Available [address], [address], 09/30/2024 11:22:28 10/01/19 25 09/30/2024 urina lysis , dipst ick Color Yellow Not Available [address], [address], 09/30/2024 11:22:28 10/22/19 25 10/21/2024 urina lysis , dipst ick Leukocytes Negati ve Not Available [address], [address], 10/21/2024 14:23:33 10/22/19 25 10/21/2024 urina lysis , dipst ick Nitrite negati ve Not Available [address], [address], 10/21/2024 14:23:33 10/22/19 25 10/21/2024 urina lysis , dipst ick Urobilinogen .2 Not Available Maik [address], [address], 10/21/2024 14:23:33 10/22/19 25 10/21/2024 urina lysis , dipst ick Protein Trace Not Available [address], [address], 10/21/2024 14:23:33 10/22/19 25 10/21/2024 urina lysis , dipst ick pH 5.5 Not Available [address], [address], 10/21/2024 14:23:33 10/22/19 25 10/21/2024 urina lysis , dipst ick Blood Negati ve Not Available [address], [address], 10/21/2024 14:23:33 10/22/19 25 10/21/2024 urina lysis , dipst ick Specific [place] 1.025 Not Available [address], [address], 10/21/2024 14:23:33 10/22/19 25 10/21/2024 urina lysis , dipst ick Ketone Negati ve Not Available [address], [address], 10/21/2024 14:23:33 10/22/19 25 10/21/2024 urina lysis , dipst ick Bilirubin Negati ve Not Available [address], [address], 10/21/2024 14:23:33 10/22/19 25 10/21/2024 urina lysis , dipst ick Glucose Negati ve Not Available [address], [address], 10/21/2024 14:23:33 10/22/19 25 10/21/2024 urina lysis , dipst ick Appearance Clear Not Available [address], [address], 10/21/2024 14:23:33 10/22/19 25 10/21/2024 urina lysis , dipst ick Color Yellow Not Available [address], [address], 10/21/2024 14:23:33 11/29/19 25 11/29/2024 NUSWA B VAGIN ITIS PLUS (VG+) atopobium vaginae Low - 0 score Not Available [facility] ([facility]) [address] [facility], [place], [address], 12/03/2024 16:08:17 11/29/19 25 11/29/2024 NUSWA B VAGIN ITIS PLUS (VG+) bvab 2 Low - 0 score Not Available [facility] ([facility]) [address] [facility], [place], [address], 12/03/2024 16:08:17 11/29/19 25 11/29/2024 NUSWA B VAGIN ITIS PLUS (VG+) megasphaera 1 Low - 0 score Calcu late total score by arik vazquez the 3 indiv idual bacte rial vagin osis (BV) marke r score s toget her. Total score is inter prete d as follo ws: Total score 0-1: Indic ates the absen ce of BV. Total score 2: Indet ermin ate for BV. Addit ional clini meri data shoul d be evalu ated to estab adiel a diagn osis. Total score 3-6: Indic ates the prese nce of BV. Not Available [facility] ([facility]) [address] [place], [address], 12/03/2024 16:08:17 11/29/19 25 11/29/2024 NUSWA B VAGIN ITIS PLUS (VG+) opal albicans, SUSAN Negati ve negati ve Not Available [facility] ([facility]) [address] [place], [address], 12/03/2024 16:08:17 11/29/19 25 11/29/2024 NUSWA B VAGIN ITIS PLUS (VG+) opal glabrata, SUSAN Negati ve negati ve Not Available [facility] ([facility]) [address] [place], [address], 12/03/2024 16:08:17 11/29/19 25 11/30/2024 NUSWA B VAGIN ITIS PLUS (VG+) trich vag by SUSAN Negati ve negati ve Not Available [facility] ([facility]) [address] [place], [address], 12/03/2024 16:08:17 11/29/19 25 11/30/2024 NUSWA B VAGIN ITIS PLUS (VG+) chlamydia trachomatis, SUSAN Negati ve negati ve Not Available [facility] ([facility]) [address] [place], [address], 12/03/2024 16:08:17 11/29/19 25 11/30/2024 NUSWA B VAGIN ITIS PLUS (VG+) neisseria gonorrhoeae, SUSAN Negati ve negati ve Not Available [facility] ([facility]) [address] [facility], [place], [address], 12/03/2024 16:08:17 11/29/19 25 12/03/2024 URINE CULTU RE, ROUTI NE urine culture, routine Final report abnormal Not Available [facility] ([facility]) [address] [facility], [place], [address], 12/03/2024 16:08:18 11/29/19 25 12/03/2024 URINE CULTU RE, ROUTI NE result 1 Entero coccus faecal is abnormal Enter ococc i susce ptibl e to penic illin are predi ctabl y susce ptibl e to ampic illin , amoxi cilli n, ampic illin -sulb actam , amoxi cilli n-cla vulan ate, and piper acill in-ta zobac cali for non-b eta-l actam ase produ cing enter ococc i. (CLSI 2018) For Enter ococc us speci es, amino glyco sides (exce pt for high- level resis tance scree mae) , cepha lospo rins, clind amyci n, and trime thopr im-paredes lfame thoxa zole are not effec tive clini bradly . (CLSI , M100- S26, 2016) 25,00 0-50, 000 colon y formi ng units per mL Note: this isola te is vanco mycin -susc eptib le. This infor matio n is provi ded for epide miolo gic purpo ses only: vanco mycin is not among the antib iotic s recom richie d for thera py of urina ry tract infec tions cause d by Enter ococc us. Not Available [facility] ([facility]) [address] [facility], [place], [address], 12/03/2024 16:08:18 11/29/19 25 12/03/2024 URINE CULTU RE, ROUTI NE antimicrobia l susceptibili ty Commen t S = Susce ptibl e; I = Inter media te; R = Resis tant P = Posit natasha; N = Negat natasha MICS are expre ssed in micro grams per mL Antib iotic RSLT# 1 RSLT# 2 RSLT# 3 RSLT# 4 Cipro floxa heather S Levof loxac in S Nitro furan toin S Penic illin S Tetra cycli ne R Vanco mycin S Not Available [facility] ([facility]) [address], [place], [address], 12/03/2024 16:08:18 11/29/19 25 11/28/2024 urina lysis , dipst ick Leukocytes Negati ve Not Available [address], [address], 11/28/2024 12:05:10 11/29/19 25 11/28/2024 urina lysis , dipst ick Nitrite negati ve Not Available [address], [address], 11/28/2024 12:05:10 11/29/19 25 11/28/2024 urina lysis , dipst ick Urobilinogen 1 Not Available Maik [address], [address], 11/28/2024 12:05:10 11/29/19 25 11/28/2024 urina lysis , dipst ick Protein Negati ve Not Available [address], [address], 11/28/2024 12:05:10 11/29/19 25 11/28/2024 urina lysis , dipst ick pH 5.5 Not Available [address], [address], 11/28/2024 12:05:10 11/29/19 25 11/28/2024 urina lysis , dipst ick Blood Negati ve Not Available [address], [address], 11/28/2024 12:05:10 11/29/19 25 11/28/2024 urina lysis , dipst ick Specific [place] 1.020 Not Available [address], [address], 11/28/2024 12:05:10 11/29/19 25 11/28/2024 urina lysis , dipst ick Ketone Negati ve Not Available [address], [address], 11/28/2024 12:05:10 11/29/19 25 11/28/2024 urina lysis , dipst ick Bilirubin Negati ve Not Available [address], [address], 11/28/2024 12:05:10 11/29/19 25 11/28/2024 urina lysis , dipst ick Glucose Negati ve Not Available [address], [address], 11/28/2024 12:05:10 11/29/19 25 11/28/2024 urina lysis , dipst ick Appearance Clear Not Available [address], [address], 11/28/2024 12:05:10 11/29/19 25 11/28/2024 urina lysis , dipst ick Color Yellow Not Available [facility] [address] [facility], [place], [address], 11/28/2024 12:05:10 03/07/20 25 03/11/2025 URINE CULTU RE, ROUTI NE urine culture, routine Final report abnormal Not Available [facility] ([facility]) [address] [facility], [place], [address], 03/11/2025 01:06:28 03/07/2003/11/2025 URINE CULTU RE, ROUTI NE result 1 COMMEN T abnormal Coagu lase negat natasha Staph yloco ccus speci es, not Staph yloco ccus sapro phyti cus. Based on susce ptibi lity to oxaci llin this isola te would be susce ptibl e to: *Peni cilli nase- stabl e penic illin s, such as: Cloxa cilli n, Diclo xacil andrés, Nafci llin *Beta -lact am combi natio n agent s, such as: Amoxi cilli n-cla vulan ic acid, Ampic illin -sulb actam , Piper acill in-ta zobac cali *Oral cephe ms, such as: Cefac jasbir, Cefdi david, Cefpo doxim e, Cefpr ozil, Cefur oxime , Cepha lexin , Lorac arbef *Pare ntera l cephe ms, such as: Cefaz rajat, Cefep erick, Cefot axime , Cefot herber, Cefta rolin e, Cefti zoxim e, Ceftr iaxon e, Cefur oxime *Carb apene ms, such as: Dorip enem, Ertap enem, Imipe nem, Merop enem Most isola amanda of Staph yloco ccus sp. produ ce a beta- lacta zaid enzym e rende ring them resis tant to penic illin . Pleas e conta ct the labor atory if penic illin is being consi dered for thera py. Great er than 100,0 00 colon y formi ng units per mL Not Available [facility] ([facility]) [address] [facility], [place], [address], 03/11/2025 01:06:28 03/07/2003/11/2025 URINE CULTU RE, ROUTI NE result 2 Escher ichia coli abnormal Cefaz rajat with an LUCIA <=16 predi cts susce ptibi lity to the oral agent s cefac jasbir, cefdi david, cefpo doxim e, cefpr ozil, cefur oxime , cepha lexin , and lorac arbef when used for thera py of uncom plica denise urina ry tract infec tions due to E. coli, Klebs iella pneum oniae , and Prote us mirab ilis. 10,00 0-25, 000 colon y formi ng units per mL Not Available [facility] ([facility]) [address] [facility], [place], [address], 03/11/2025 01:06:28 03/07/2003/11/2025 URINE CULTU RE, ROUTI NE antimicrobia l susceptibili ty Commen t S = Susce ptibl e; I = Inter media te; R = Resis tant P = Posit natasha; N = Negat natasha MICS are expre ssed in micro grams per mL Antib iotic RSLT# 1 RSLT# 2 RSLT# 3 RSLT# 4 Amoxi cilli n/Cla vulan ic Acid S Ampic illin S Cefaz rajat S Cefep erick S Cefox itin S Cefpo doxim e S Ceftr iaxon e S Cipro floxa heather S S Ertap enem S Genta micin S S Levof loxac in S S Merop enem S Moxif loxac in S Nitro furan toin S I Oxaci llin S Piper acill in/Ta zobac cali S Rifam pin S Tetra cycli ne S S Tobra mycin S Trime thopr im/Paredes lfa S S Vanco mycin S Not Available [facility] ([facility]) [address] [facility], [place], [address], 03/11/2025 01:06:28 03/07/2003/07/2025 urina lysis , dipst ick Leukocytes Negati ve Not Available [address], [address], 03/07/2025 13:57:28 03/07/2003/07/2025 urina lysis , dipst ick Nitrite negati ve Not Available [address], [address], 03/07/2025 13:57:28 03/07/2003/07/2025 urina lysis , dipst ick Urobilinogen .2 Not Available Maik [address], [address], 03/07/2025 13:57:28 03/07/2003/07/2025 urina lysis , dipst ick Protein 30 Not Available [address], [address], 03/07/2025 13:57:28 03/07/2003/07/2025 urina lysis , dipst ick pH 5.5 Not Available [address], [address], 03/07/2025 13:57:28 03/07/2003/07/2025 urina lysis , dipst ick Blood Non-He molyze d: Trace Not Available [address], [address], 03/07/2025 13:57:28 03/07/2003/07/2025 urina lysis , dipst ick Specific [place] 1.030 Not Available [address], [address], 03/07/2025 13:57:28 03/07/20 25 03/07/2025 urina lysis , dipst ick Ketone Negati ve Not Available [address], [address], 03/07/2025 13:57:28 03/07/20 25 03/07/2025 urina lysis , dipst ick Bilirubin Negati ve Not Available [address], [address], 03/07/2025 13:57:28 03/07/2003/07/2025 urina lysis , dipst ick Glucose Negati ve Not Available [address], [address], 03/07/2025 13:57:28 03/07/2003/07/2025 urina lysis , dipst ick Appearance Clear Not Available [address], [address], 03/07/2025 13:57:28 03/07/2003/07/2025 urina lysis , dipst ick Color Dark Yellow Not Available [address], [address], 03/07/2025 13:57:28 12/11/1912/10/2024 XR, sacru m + coccy x No observ ation record ed. [facility] ([facility] [address] [facility] [place], [address], 12/17/2024 15:56:59 01/30/20 25 01/22/2025 MAMMO , scree mae, tomos ynthe sis, bilat eral, w/ CAD No observ ation record ed. [facility] [address] [place] [address], [address], [place], [address], 01/31/2025 12:55:01 02/04/20 25 01/22/2025 MAMMO , scree mae, tomos ynthe sis, bilat eral No observ ation record ed. [facility] [address], [place], [address], 02/04/2025 12:56:53 Result Notes None recorded. Problems Name Problem SNOMED Code Status Onset Date Resolution Date Notes Provider Name and Address Organization Details Recorded Time Anxiety 08045047 Active Pat Acharya [facility], [place] - [facility] 2 09:50:16 Osteoarthriti s 883182018 Active 2022 Kerri Gonzalez APRN [address], [place], [address] , [place] - [facility] 3 09:20:27 Gastroesophag eal reflux disease 725870992 Active 2022 Kerri Gonzalez SNIPPER [address], [place], [address] , [place] - [facility] 3 09:20:21 Vitamin D deficiency 98440846 Active 2022 Kerri Gonzalez SNIPPER [address], [place], [address] , [place] - [facility] 3 09:34:09 Congestion of nasal sinus 79462846 Active 2024 Sivan Reeves APRN [address], [place], [address] , [place] - [facility] 5 11:43:24 Acute bronchitis 24446284 Active 2024 Sivan Reeves APRN [address], [place], [address] , [place] - [facility] 5 11:44:12 Essential hypertension 53109170 Active 2024 Kerri Gonzalez APRN [address], [place], [address] , [place] - [facility] 5 14:40:26 Restless legs syndrome 68293111 Active 2024 Kerri Gonzalez, SNIPPER [address], [place], [address] , [place] - [facility] 14:40:48 Neuropathic pain 700221269 Active 2024 Kerri Gonzalez, SNIPPER [address], [place], [address] , [place] - [facility] 14:40:57 Problem Notes None recorded. Procedures Surgical History Date Name Laterality Status Provider Name and Address Organization Details Recorded Time 01/23/20 Date of Last Mammogram completed Jackie Stears [place] - [facility] 01/30/2025 08:43:01 09/03/19 25 OMT completed Gideon Marques DO [address], [place], [address], [place] - [facility] 09/02/2024 14:39:05 08/21/19 25 [...] Name and Address Organization Details Recorded Time 272702 iodine medicatio n itching moderate high 03/08/2022 5933 RxNorm Pat rodriguez, [place] - [facility] 09:48:06 [id number] codeine medicatio n Not available Not available Not available 03/07/2025 2670 RxNorm Not Available [facility] - External Data Service - prod 13:28:49 [id number] Betadine medicatio n Not available Not available Not available 03/07/202500609 0 RxNorm Not Available [facility] External Data Service - prod 13:28:49 Medications Name Sig Start Date Stop [...] Not Available Vitals Date Recorded Body height Respiratory rate Body mass index (BMI) Body weight Body temperature Heart rate Oxygen saturation Systolic And Diastolic Provider Name and Address Organization Details Last Updated DateTime 5 162.56 cm 18 /min 29.7 kg/m2 70367.4 8 g 97.9 [degF] 72 /min 98 % 134/80 mm[Hg] Jackie Burnetts [place] - [facility] 5 13:57:06 Date Recorded Body height Body mass index (BMI) Body weight Heart rate Oxygen saturation Respiratory rate Pain severity - 0-10 verbal numeric rating [Score] - Reported Body temperature Systolic And Diastolic Provider Name and Address Organization Details Last Updated DateTime 5 162.56 cm 29.4 kg/m2 93588.1 g 70.98 /min 97 % 18 /min 0 98.1 [degF] 118/78 mm[Hg] Pat Acharya [place] - [facility] 5 11:10:01 Date Recorded Body height Body mass index (BMI) Body weight Heart rate Oxygen saturation Respiratory rate Pain severity - 0-10 verbal numeric rating [Score] - Reported Body temperature Systolic And Diastolic Provider Name and Address Organization Details Last Updated DateTime 5 162.56 cm 29.7 kg/m2 74533.4 8 g 63 /min 98 % 18 /min 0 97.9 [degF] 132/78 mm[Hg] Pat Marck [place] - [facility] 5 13:53:21 Date Recorded Body height Provider Name an d Address Organization Details Last Updated DateTime 02/27/2025 162.56 cm Jackie Gonzales [place] - [facility] 02/27 11:01:41 Date Recorded Body height Body mass index (BMI) Body weight Heart rate Body temperature Oxygen saturation Respiratory rate Pain severity - 0-10 verbal numeric rating [Score] - Reported Systolic And Diastolic Provider Name and Address Organization Details Last Updated DateTime 162.56 cm 29.4 kg/m2 22565.3 g 68 /min 97.6 [degF] 98 % 18 /min 0 120/78 mm[Hg] Pat Marck [place] - [facility] 5 13:47:39 Social History Question Answer Notes LastModified by Organizat ion Details LastModified Time Tobacco Smoking Status Never Smoker Pat Marck [place] - [facility] 03/08/2022 09:51:17 Do You [...] Or The Highest Degree You Have Received? [id number] Information not available 03/14/2023 Have There Been Any Changes To Your Family Or Social Situation? No Information no t available 06/14/2022 What Is The Fluoride Status Of Your Home? Fluoridated Information not available 06/14/2022 Have You Recently Or Are You Planning To Travel To An Area With Zika Virus? No Information not available 06/14/2022 Do You Have A Medical Power Of Devops Consultant? No Information not available 06/14/2022 What Was The Date Of Your Most Recent Tobacco Screening? 09/10/2024 [email or web address] Information not available 09/10/2024 What Is Your [...] Organizat ion Details LastModified Time Do you use any [...] Organizat ion Details LastModified Time Do you feel stressed (tense, restless, nervous, or anxious, or unable to sleep at night)? [id number] Information not available 12/20/2022 Do you have [...] Influenza, high-dose, quadrivalent, PF 2 completed Jackie Gonzales null, [place] - [facility] 02/24/2022 16:47:05 Tdap 3 completed Kerri Gonzalez APRN [address], [place], [address], [place] [facility] 06/14/2022 10:11:22 Influenza, high-dose, quadrivalent, PF 3 completed Kerri Gonzalez APRN [address], [place], [address], [place] - [facility] 02/06/2023 11:16:51 Influenza, high-dose, trivalent, PF 4 completed Pat Acharya null, [place] - [facility] 03/18/2024 15:11:59 Pneumococcal conjugate PCV20, polysaccharide [id number] conjugate, adjuvant, PF 5 completed Pat Acharya null, [place] - [facility] 01/27/2025 16:55:26 Influenza, high-dose, trivalent, PF 5 completed Jackie Stears null, [place] - [facility] 02/27/2025 11:03:39 Influenza, split virus, trivalent, PF 2 completed Jackie Stears null, [place] - [facility] 02/24/2022 10:49:36 Tdap 7 completed Jackie Stears [place], [place] - [facility] 02/24/2022 10:49:36 Influenza, split virus, quadrivalent, PF 1 completed Jackie Stears [place] - [facility] 02/24/2022 10:49:36 Tdap 7 completed Jackie Stears [place] - [facility] 02/24/2022 10:49:36 VZIG 2 completed Jackie Stears null, [place] - [facility] 02/24/2022 10:49:36 COVID-19, mRNA, LNP-S, PF, 100 mcg/0.5mL dose or 50 mcg/0.25mL dose 1 completed Jackie Stears null, [place] - [facility] 02/24/2022 10:49:36 pneumococcal polysaccharide PPV23 5 completed Jackie Stears null, [place] - [facility] 02/24/2022 10:49:36 Pneumococcal conjugate PCV 13 6 completed Jackie Stears null, [place] - [facility] 02/24/2022 10:49:36 COVID-19, mRNA, LNP-S, PF, 100 mcg/0.5mL dose or 50 mcg/0.25mL dose 1 completed Jackie Stears null, [place] - [facility] 02/24/2022 10:49:36 Influenza, MDCK, quadrivalent, PF 8 completed Jackie Stears null, [place] - [facility] 02/24/2022 10:49:36 Pneumococcal conjugate PCV 13 9 completed Jackie Stears null, [place] - [facility] 02/24/2022 10:49:36 Past Encounters Encounter ID Performer Location Encounter Start Date Encounter Closed Date Diagnosis/Indication Diagnosis SNOMED-CT Code Diagnosis ICD10 Code Diagnosis IMO Codes Diagnosis Note [id number] Kerri Gonzalez [place] [id number] 1 02/24/2022 10:13:27 02/24/2022 11:15:02 Influenza vaccine [facility] [id number] [id number] [place] [id number] 1 03/08/2022 08:42:09 03/08/2022 10:49:59 Acute bronchitis 03975316 J20.9 Fever 900622647 R50.9 [id number] [facility] [place] [id number] 1 04/12/2022 08:42:05 04/12/2022 10:23:25 Impacted cerumen in right ear 2594820214 275942 H61.21 Acute maxi llary sinusitis 33117503 J01.00 Dizziness 495290627 R42 if symptoms continue or worsen go to ed [id number] [facility] [place] [id number] 1 06/14/2022 08:56:22 06/14/2022 10:10:41 Administration of tetanus vaccine 319204293 Z23 Administra tion of diphtheria, pertussis, and tetanus vaccine 701061476 Z23 Laceration of left thumb [id number] 3152627 S61.012A watch for s/[facility] [place] [place] clean and dryif any concerns return [id number] Kerri Gonzalez [address] [address] 12/20/2022 13:55:41 12/20/2022 14:59:19 Pain of right knee joint 5594072857 05104 M25.561 follow up with ortho Pain of ri ght shoulder joint 6777770575 9950080 M25.511 if no improvemen t will need more work up [id number] Kerri Gonzalez[address] [address] 12/29/2022 08:17:39 12/29/2022 09:11:10 Pharyngitis 981467783 J02.9 Body mass index 25-29 - overweight 631814202 Z68.29 Overweight 429517373 E66 .3 Acute maxi llary sinusitis 03133404 J01.00 [id number] Kerri Gonzalez[address] [address] 01/23/2023 09:23:25 01/23/2023 10:25:08 Acute urinary tract infection 862786639 N39.0 increase fluidsanti biotics as ordered [id number] [address] [address] 02/06/2023 10:39:34 02/06/2023 11:45:37 Influenza vaccine needed 1301255301 106 Z23 History of urinary tract infection 7209906395 107 Z87.[id number] [address] 03/10/2023 10:04:28 03/10/2023 10:36:22 Acute urinary tract infection 369129383 N39.0 increase fluidsanti biotics as [facility] [id number] [facility] [address] 03/14/2023 08:44:02 03/14/2023 09:54:39 Adult health examination 516677783 Z00.00 Depression screening 171 460320 Z13.31 Examinatio n of blood pressure 604087712 Z01.30 Diet education 87837308 Z71.3 Counseling 934629728 Z71 .82 Exercise counseling . Patient encouraged to exercise 30 minutes 5 days a week. At [facility] ed risk for falls 825677289 Z91.81 STEADI FAST screening score of __0___. Advance care planning 71 2687139 Z71.89 Finding of body mass index 238924266 E66.9 29.5 Gastroesop hageal reflux disease 182522175 K21.9 Osteoarthritis 892317861 M19.90 Anxiety 68844240 F41.9 Vitamin D deficiency 347 10777 E55.9 Fatigue 14745350 R53.83 [id number] [place] [address] 1 04/06/2023 09:31:23 04/06/2023 10:21:18 Acute urinary tract infection 503464126 N39.0 increase fluidsanti biotics as ordereddis cussed with pt that she may want to see a urologist due to freq uti [id number] [place] [address] 1 05/04/2023 13:41:23 05/04/2023 14:35:40 Acute left otitis media 077256792 H66.92 Allergic rhinitis 589382 04 J30.9 [id number] [facility] [place] [address] 1 05/26/2023 09:15:12 05/26/2023 10:18:00 Gastroesophageal reflux disease 798752093 K21.9 Anxiety 60036704 F41.9 Osteoarthritis 869567962 M19.90 Vitamin D deficiency 347 51081 E55.9 Menopausal syndrome 1237 14169 N95.9 Seasonal a llergic rhinitis 164500521 J30.2 Prediabetes 824256474 R7 3.03 [id number] Kerri Gonzalez [place] 949[address] 1 06/01/2023 08:06:40 06/01/2023 08:30:19 Prediabetes 598196299 R73.03 [id number] Kerri Gonzalez [address] [address] 06/19/2023 10:38:49 06/19/2023 11:33:18 Pain of bilateral knee joints 9596754051 10128 M25.561 chronic pain Body mass index 25-29 - overweight 981325735 Z68.29 Overweight 538294798 E66 .3 [id number] Kerri Gonzalez [address] [address] 1 07/24/2023 14:32:36 07/24/2023 15:19:32 Acute urinary tract infection 407447017 N39.0 increase fluidsanti biotics as ordereddis cussed with pt that she may want to see a urologist due to freq uti [id number] Kerri Gonzalez [address] [address] 08/31/2023 14:44:08 08/31/2023 15:57:56 Chronic low back pain 293221543 M54.50 will order mri [id number] Kerri Gonzalez [address] [address] 09/15/2023 10:07:41 09/15/2023 10:34:40 Acute conjunctivitis 34739179 H10.11 if no improvemen t return or appointmen t with eye [id number] Kerri Gonzalez [address] [address] 12/26/2023 16:31:08 12/26/2023 17:27:12 Neuralgia 21726513 M79.2 Vitamin D deficiency 347 36193 E55.9 Screening for osteoporosis 503731849 Z13.820 Neuropathy 841775208 G62 .9 discussed gabapentin with pt and she will discuss with pain management [id number] Kerri Gonzalez [address] [address] 01/11/2024 11:00:35 01/11/2024 11:40:07 Osteoarthritis 058009963 M19.90 Bone densi ty below reference range 745211280 R93.7 discussed dexa scan and labs [id number] Kerri Gonzalez [address] [address] 03/18/2024 13:47:23 03/18/2024 14:29:16 Influenza vaccine needed 3818677538 106 Z23 Hypertensive disorder 38 972278 I10 [id number] Kerri Gonzalez [address] [address] 05/28/2024 09:14:29 05/28/2024 10:29:37 Streptococcal sore throat 54056905 J02.0 contact precaution sif symptoms worsen or no improvemen t return [id number] [facility] [address] [address] 07/08/2024 10:34:49 07/08/2024 11:41:50 Pain in lower limb 78285457 M79.606 Candidiasis of vagina 72 822737 B37.31 Itching of ear 817399580 L29.81 Increased frequency of urination 314612065 R35.0 [id number] Kerri Gonzalez [address] [address] 07/26/2024 13:23:39 07/26/2024 14:34:03 Pharyngitis 755493501 J02.9 if worsen or no improvemen t return Seasonal allergy 8280435 04 J30.2 27777 claritin otc [id number] RON [facility] [address] [place] [address] 07/29/2024 11:26:06 07/29/2024 11:47:54 Congestion of nasal sinus 96126906 R09.81 98441 Acute bronchitis 4342933 2 J20.9 02251889 [id number] [facility] [address] [place] [address] 08/02/2024 08:57:56 08/02/2024 10:11:36 Acute bacterial bronchitis 629218547 J20.8 B96.89 6064231 will add inhaler and change antibiotic due to it making her sick. will only do 5 days since she has almost finished a course of cefdinir. stop robitussin and mucinex [id number] Kerri Gonzalez APRN [address] [address] 08/20/2024 13:57:31 08/20/2024 15:20:15 Adult health examination 100776854 Z00.00 Depression screening 171 728580 Z13.31 A depression screening was completed via a standardiz ed screening tool. 5 minutes were spent discussing depression screening results and risk factors. Examinatio n of blood pressure 122823135 Z01.30 Diet education 87546259 Z71.3 Counseling 216160938 Z71 .82 Exercise counseling . Patient encouraged to exercise 30 minutes 5 days a week. At [facility] ed risk for falls 432636686 Z91.81 STEADI FAST screening score of _2____. Advance care planning 71 2036370 Z71.89 Screening for malignant neoplasm of colon 170057476 Z12.11 Hepatitis C screening declined 9366310464 5105 Z53.20 8871300893 Anxiety 32125837 F41.9 Osteoarthritis 649231272 M19.90 Vitamin D deficiency 347 41785 E55.9 Gastroesop hageal reflux disease 883936098 K21.9 Essential hypertension 04510914 I10 87414 Neuropathic pain 4516177 09 M79.2 317554 Low back pain 994710152 M54.50 015491 discuss with pain management - if they can not write tramadol if they give me permission I can [id number] Gideon Marques DO [address] [place]A Cárden[place] [address] 09/02/2024 13:33:28 09/02/2024 14:32:08 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 chronic; exacerbate d and worsening; pending evaluation by neurosurge ry; OMT provided to palliate in meantime; will get patient in to try acupunctur e at soonest convenienc e Somatic dy sfunction of thoracic region 269860259 M99.02 536736 as above Somatic dy sfunction of lumbar region 426356985 M99.03 915870 as above Somatic dy sfunction of sacral region 135355915 M99.04 733704 as above Somatic dy sfunction of hip region 386225999 M99.05 33499681 as above Somatic dy sfunction of lower limb 899607451 M99.06 381049 as above [id number] Gideon Marques DO [facility] [address] [place] [address] 09/10/2024 12:27:59 09/10/2024 14:33:52 Neuropathic pain 492685371 M79.2 014884 2/2 above Overweight 008945811 E66 .3 complicati ng Overweight in adulthood with body mass index of 25 or more but less than 30 017310685 Z68.29 184450 Chronic pr imary low back pain 2958199048 7100 M54.59 G89.29 2686947529 chronic; exacerbate d; marked degenerati ve changes on MRI; upcoming visit with neurosurge ry; OMT minimally temporaril y helpful; medical acupunctur e provided and well tolerated; f/u tbd based on response to medical acupunctur e [id number] Kerri Gonzalez [address] [address] 09/30/2024 10:46:35 09/30/2024 11:47:08 History of recurrent urinary tract infection 907437922 Z87.403 3790848 return if any symptoms [id number] Kerri Gonzalez [address] [address] 10/21/2024 13:46:10 10/21/2024 14:58:19 Dizziness 274569804 R42 267921 if symptoms continue or worsen go to ed Headache 58106288 R51.9 [id number] call surgeon and see if he thinks this could be surgery relatedif worsen or no improvemen t go to ed [id number] Kerri Gonzalez[address] [address] 11/28/2024 10:57:45 11/28/2024 11:30:57 Pain in coccyx 11560207 M53.3 4129979 Acute low back pain 2788 28220 M54.50 42916478 Candidiasis of vagina 72 157847 B37.31 1399030 Pruritus of vagina 42196 003 N89.8 161048 Burning se nsation of vagina 423343777 N94.89 097537 [id number] Kerri Navarroanderson[address] [address] 01/27/2025 13:24:55 01/27/2025 14:14:24 Essential hypertension 03085741 I10 28273 Vitamin D deficiency 347 62405 E55.9 Hypertensive disorder 38 059565 I10 Gastroesop hageal reflux disease 441779075 K21.9 Allergic rhinitis 051332 04 J30.9 82855503 start back on allergy med,if worsen or no improvemen t return Active immunization 3387 9002 Z23 05757970 [id number] [facility] Navarroalvinaalan[address] [address] 02/27/2025 10:54:44 02/27/2025 11:03:31 Influenza vaccine needed 6145790882 106 Z23 [id number] [facility] anderson[address] [address] 03/07/2025 13:23:22 03/07/2025 14:30:35 Dysuria 72306573 R30.0 79129 Bronchitis 45395389 J40 54956 steroidsbe nzonatate as neededif worsen or no improvemen t return Acute urin nani tract infection 338329147 N39.0 antibiotic s as orderedcul tureincrea se fluidscran lepe juicewipe front to backvoid after intercours anatoliy not hold urineantib iotics as orderedcot ton underwearr eturn if symptoms worsen or do not improve Health Concerns Section Related Observation LastModified by Organization Detai ls LastModified Time None Recorded Concern Status LastModified by Organization Details LastModified Time None Recorded Advance Directives Directive N: Payers Insurance Date Sequence Insurance Name Policy Number Policy Wright Covered Member ID Wright Member ID Guarantor Name 03/07/2025 1 [employer] (MEDICARE REPLACEMENT/A DVANTAGE - PPO) Deanna Joshi [id number] Deanna Joshi Notes Date Note Type Note Provider Name and Address Organization Details Recorded Time 10/21/2024 text/html 74 year old female who presents to the office today with concerns of dizziness, headache, back surgery 10/04/24. pt/daughter states pt has hx of vertigo they want her ears checked Kerri Gonzalez, RON [address], [place], [address], [place] - [facility] 10/21/2024 14:52:10 11/28/2024 text/html ROS as noted in the HPI 74 yr old female presents for possible yeast infection and/or uti. Patient complains of itching, burning, irritation in vaginal area. took diflucan but wants to make sure its not the yeast she needs antibiotics for.also fell opening the gate and fell on buttocks and now having pain would like xray to make sure nothing is broke. Kerri Gonzalez APRN [address], [place], [address], [place] - [facility] 01/03/2025 16:40:19 01/27/2025 text/html ROS as noted in the HPI 75 yr old female presents for a pneumonia vaccine, sinus pressure, and a few medications refilled for chronic conditions such as htn,gerd,vit d def, Kerri Gonzalez, SNIPPER [address], [place], [address], [place] - [facility] 01/27/2025 14:13:38 02/27/2025 text/html Deanna is here for the flu shot Jackie rodriguez, [place] - [facility] 02/27/2025 11:04:44 03/07/2025 text/html ROS as noted in the HPI 75 yr old presents for a possible uti, has some burning with urination. Also thinks she may have bronchitis because she has been out in the cold air [place] hunting. coughing thick mucus. Kerri Gonzalez APRN [address], [place], [address], [place] - [facility] 03/07/2025 15:03:46 OBGyn Episode No OBEpisode recorded.
--- OUTSIDE RECORDS SUMMARY | 2025-03-17 11:07 | XMS_ITS | Continuity of Care Document ---
Author Organization [facility], [facility] Address [address] [place] [address] Assessment No assessment recorded. Plan of Treatment [...] w/ CAD No observ ation record ed. [facility] [address], Suite [facility], [place], [address], 01/31/2025 12:55:01 02/04/2001/22/2025 MAMMO , scree mae, tomos ynthe sis, bilat eral No observ ation record ed. [facility] [address] Kraig [facility], [place], [address], 02/04/2025 12:56:53 Result Notes None recorded. Problems Name Problem SNOMED Code Status Onset Date Resolution Date Notes Provider Name and Address Organization Details Recorded Time Anxiety 63329947 Active Pat rodriguez [facility] 09:50:16 Osteoarthriti s 596165957 Active 2022 Kerri Gonzalez, [facility] [address], [place], [address] , [place] - [facility] 3 09:20:27 Gastroesophag eal reflux disease 343143562 Active 2022 Kerri Gonzalez, [facility] [address], [place], [address] , [place] [facility] 3 09:20:21 Vitamin D deficiency 93549812 Active 2022 Kerri Gonzalez, [facility] [address], [place], [address] , [place] [facility] 3 09:34:09 Congestion of nasal sinus 28381715 Active 2024 Sivan Reyesoberts, [facility] [address], [place], [address] , [place] [facility] 5 11:43:24 Acute bronchitis 26739083 Active 2024 Sivan Reeves, [facility] [address], [place], [address] , [place] [facility] 5 11:44:12 Essential hypertension 41202730 Active 2024 Kerri Gonzalez, [facility] [address], [place], [address] , [place] [facility] 5 14:40:26 Restless legs syndrome 32050377 Active 2024 Kerri Gonzalez, [facility] [address], [place], [address] , [place] [facility] 5 14:40:48 Neuropathic pain 097048790 Active 2024 Kerri Gonzalez, [facility] [address], [place], [address] , [place] [facility] 5 14:40:57 Problem Notes None recorded. Procedures Surgical History Date Name Laterality Status Provider Name and Address Organization Details Recorded Time 01/23/20 Date of Last Mammogram completed Jackie Gonzales [place] - [facility] 01/30/2025 08:43:01 09/03/19 25 OMT completed Gideon Marques DO [address], [place], [address], [place] - [facility] 09/02/2024 14:39:05 08/21/19 25 Advance Care Planning completed Pat Acharya [place] - [facility] 08/20/2024 14:03:52 08/21/19 25 Functional Status Assessed completed Pat Acharya [place] - [facility] 08/20/2024 14:03:52 03/14/20 23 Advance Care Planning completed Jackie Lexs [place] - [facility] 03/14/2023 08:53:11 03/14/20 23 [...] Name and Address Organization Details Recorded Time 113662 iodine medicatio n itching moderate high 03/08/2022 5933 RxNorm Pat rodriguez, [place] - [facility] 09:48:06 606831 codeine medicatio n Not available Not available Not available 03/07/2025 2670 RxNorm Not Available [employer] - prod 13:28:49 264778 Betadine medicatio n Not available Not available Not available 03/07/202568457 0 RxNorm Not Available [employer] - prod 13:28:49 Medications [...] Not Available Vitals Date Recorded Body height Provider Name an d Address Organization Details Last Updated DateTime 02/27/2025 162.56 cm Jackie Christian [place] - [facility] 02/27 11:01:41 Social History Question Answer Notes LastModified by Organizat ion Details LastModified Time Tobacco Smoking Status Never Smoker Pat Silverrobert rodriguez, [place] - [facility] 03/08/2022 09:51:17 Do [...] Or The Highest Degree You Have Received? [id number] Information not available 03/14/2023 Have There Been Any Changes To Your Family Or Social Situation? No Information no t available 06/14/2022 What Is The Fluoride Status Of Your Home? Fluoridated Information not available 06/14/2022 Have You Recently Or Are You Planning To Travel To An Area With Zika Virus? No Information not available 06/14/2022 Do You Have A Medical Power Of Platinum And Palladium Kettle Tender? No Information not available 06/14/2022 What Was The Date Of Your Most Recent Tobacco Screening? 09/10/2024 [email or web address] Information not available 09/10/2024 What Is Your [...] anxious, or unable to sleep at night)? [id number] Information not available 12/20/2022 Do you have [...] quadrivalent, PF 2 completed Jackie Gonzales null, [place] - [facility] 02/24/2022 16:47:05 Tdap 3 completed Kerri Gonzalez, [facility] [address], [place], [address], [place] [facility] 06/14/2022 10:11:22 Influenza, high-dose, quadrivalent, PF 3 completed Kerri Gonzalez, [facility] [address], [place], [address], [place] [facility] 02/06/2023 11:16:51 Influenza, high-dose, trivalent, PF 4 completed Pat Acharya [facility] 03/18/2024 15:11:59 Pneumococcal conjugate PCV20, polysaccharide NXV888 conjugate, adjuvant, PF 5 completed Pat Acharya null, [place] - [facility] 01/27/2025 16:55:26 Influenza, high-dose, trivalent, PF 5 completed Jackie Stears [place] [facility] 02/27/2025 11:03:39 Influenza, split virus, trivalent, PF 2 completed Jackie Stears [place] [facility] 02/24/2022 10:49:36 Tdap 7 completed Jackie Ste[place] [facility] 02/24/2022 10:49:36 Influenza, split virus, quadrivalent, PF 1 completed Jackie Ste[place] [facility] 02/24/2022 10:49:36 Tdap 7 completed Jackie Ste[place] [facility] 02/24/2022 10:49:36 VZIG 2 completed Jackie Ste[place] [facility] 02/24/2022 10:49:36 COVID-19, mRNA, LNP-S, PF, 100 mcg/0.5mL dose or 50 mcg/0.25mL dose 1 completed Jackie Stears [place] [facility] 02/24/2022 10:49:36 pneumococcal polysaccharide PPV23 5 completed Jackie Ste[place] [facility] 02/24/2022 10:49:36 Pneumococcal conjugate PCV 13 6 completed Jackie Ste[place] [facility] 02/24/2022 10:49:36 COVID-19, mRNA, LNP-S, PF, 100 mcg/0.5mL dose or 50 mcg/0.25mL dose 1 completed Jackie Ste[place] [facility] 02/24/2022 10:49:36 Influenza, MDCK, quadrivalent, PF 8 completed Jackie Ste[place] [facility] 02/24/2022 10:49:36 Pneumococcal conjugate PCV 13 9 completed Jackie Stears null[place] [facility] 02/24/2022 10:49:36 Past Encounters Encounter ID Performer Location Encounter Start Date Encounter Closed Date Diagnosis/Indication Diagnosis SNOMED-CT Code Diagnosis ICD10 Code Diagnosis IMO Codes Diagnosis Note [id number] Kerri Gonzalez APRN [address] [address] 01/27/2025 13:24:55 01/27/2025 14:14:24 Essential hypertension 89438974 I10 04474 Vitamin D deficiency 347 62128 E55.9 Hypertensive disorder 38 562114 I10 Gastroesop hageal reflux disease 171129607 K21.9 Allergic rhinitis 374589 04 J30.9 03663463 start back on allergy med,if worsen or no improvemen t return Active immunization 3387 9002 Z23 27550135 [id number] Kerri Gonzalez [facility] [address] [address] 02/27/2025 10:54:44 02/27/2025 11:03:31 Influenza vaccine needed 4422243541 106 Z23 Health Concerns Section Related Observation LastModified by Organization Detai ls LastModified Time None Recorded Concern Status LastModified by Organization Details LastModified Time None Recorded Payers Encounter Date Sequence Insurance Name Policy Number Policy Wright Covered Member ID Wright Member ID Guarantor Name 02/27/2025 1 [employer] (MEDICARE REPLACEMENT/A DVANTAGE - PPO) Deanna Joshi [id number] Deanna Joshi Notes Date Note Type Note Provider Name and Address Organization Details Recorded Time 02/27/2025 text/html Deanna is here for the flu shot THEA Alvarez - [facility] 02/27/2025 11:04:44 OBGyn Episode No OBEpisode recorded.
--- OUTSIDE RECORDS SUMMARY | 2025-03-17 11:07 | XMS_ITS | Continuity of Care Document ---
Author Organization [facility] Lena George [facility] Address [address] [place] [address] Assessment No assessment recorded. Plan of Treatment Reminders Order Date Submit Date Provider Last Modified By Organization Details Last Modified Time Details Appointments None recorded. Lab urinalysis, dipstick 2024 025 [facility], [address] [place] [address], [address], 15:10:38 culture, urine 2024 025 [place] [facility], [address] , [facility], [place], [address], 5 01:06:28 Referral None recorded. Procedures None recorded. Surgeries None recorded. Imaging None recorded. Medication Orders cephalexin 500 mg capsule 2024 025 [place] [facility], [address] [place], [address], 15:08:19 prednisone 20 mg tablet 2024 025 [facility], [address] [place], [address], 5 15:08:25 benzonatate 100 mg capsule 2024 025 [facility], [address] [place], [address], 15:08:15 Patient TargetsNo targets recorded. Patient InstructionsNo instructions recorded. Reason for Referral None Reported. Results Created Date Observation Date Name Description Value Unit Range Abnormal Flag Note LastModifiedBy Organization Detail LastModifiedTime 03/07/2003/11/2025 URINE CULTU RE, ROUTI NE urine culture, routine Final report abnormal Not Available [facility] ([facility]) [address], [place], [address], 03/11/2025 01:06:28 03/07/2003/11/2025 URINE CULTU RE, ROUTI [...] ng units per mL Not Available [facility] ([facility]) [address] [place], [address], 03/11/2025 01:06:28 03/07/2003/11/2025 URINE CULTU RE, ROUTI [...] ng units per mL Not Available [facility] ([facility]) [address] [facility], [place], [address], 03/11/2025 01:06:28 03/07/2003/11/2025 URINE CULTU RE, ROUTI [...] S Vanco mycin S Not Available [facility] ([facility]) [address] [facility], [place], [address], 03/11/2025 01:06:28 03/07/2003/07/2025 urina lysis , dipst ick Leukocytes Negati ve Not Available [address], [address], 03/07/2025 13:57:28 03/07/2003/07/2025 urina lysis , dipst ick Nitrite negati ve Not Available [address], [address], 03/07/2025 13:57:28 03/07/2003/07/2025 urina lysis , dipst ick Urobilinogen .2 Not Available [facility] [address], [address], 03/07/2025 13:57:28 03/07/20 25 03/07/2025 urina lysis , dipst ick Protein 30 Not Available [address], [address], 03/07/2025 13:57:28 03/07/2003/07/2025 urina lysis , dipst ick pH 5.5 Not Available [address], [address], 03/07/2025 13:57:28 03/07/2003/07/2025 urina lysis , dipst ick Blood Non-He molyze d: Trace Not Available [address], [address], 03/07/2025 13:57:28 03/07/2003/07/2025 urina lysis , dipst ick Specific [place] 1.030 Not Available [address], [address], 03/07/2025 13:57:28 03/07/2003/07/2025 urina lysis , dipst ick Ketone Negati ve Not Available [address], [address], 03/07/2025 13:57:28 03/07/2003/07/2025 urina lysis , dipst ick Bilirubin Negati ve Not Available [address], [address], 03/07/2025 13:57:28 03/07/2003/07/2025 urina lysis , dipst ick Glucose Negati ve Not Available [address], [address], 03/07/2025 13:57:28 03/07/2003/07/2025 urina lysis , dipst ick Appearance Clear Not Available [address], [address], 03/07/2025 13:57:28 03/07/2003/07/2025 urina lysis , dipst ick Color Dark Yellow Not Available [address], [address], 03/07/2025 13:57:28 Result Notes None recorded. Problems Name Problem SNOMED Code Status Onset Date Resolution Date Notes Provider Name and Address Organization Details Recorded Time Anxiety 16698241 Active Pat Acharya null, [place] - [facility] 2 09:50:16 Osteoarthriti s 839297653 Active 2022 Kerri Gonzalez, CL[employer]ICAL PROJECT MANAGER [address], [place], [address] , [place] - [facility] 3 09:20:27 Gastroesophag eal reflux disease 424744371 Active 2022 Kerri Gonzalez, CLINICAL PROJECT MANAGER [address], [place], [address] , [place] - [facility] 3 09:20:21 Vitamin D deficiency 90226121 Active 2022 Kerri Gonzalez, CLINICAL PROJECT MANAGER [address], [place], [address] , [place] - [facility] 3 09:34:09 Congestion of nasal sinus 44594877 Active 2024 Sivan Reeves, CL[employer]ICAL PROJECT MANAGER [address], [place], [address] , [place] - [facility] 5 11:43:24 Acute bronchitis 25615694 Active 2024 Sivan Reeves, CLINICAL PROJECT MANAGER [address], [place], [address] , [place] - [facility] 5 11:44:12 Essential hypertension 13136945 Active 2024 Kerri Gonzalez, CLINICAL PROJECT MANAGER [address], [place], [address] , [place] - [facility] 5 14:40:26 Restless legs syndrome 27665914 Active 2024 Kerri Gonzalez, CLINICAL PROJECT MANAGER [address], [place], [address] , [place] - [facility] 5 14:40:48 Neuropathic pain 031350021 Active 2024 Kerri Gonzalez, CL[employer]ICAL PROJECT MANAGER [address], [place], [address] , [place] - [facility] 5 14:40:57 Problem Notes None recorded. Procedures Surgical History Date Name Laterality Status Provider Name and Address Organization Details Recorded Time 01/23/20 25 Date of Last Mammogram completed Jackie Gonzales [place] - [facility] 01/30/2025 08:43:01 09/03/19 25 OMT completed Gideon Marques DO [address], [place], [place], [address], [place] - [facility] 09/02/2024 14:39:05 08/21/19 25 [...] Name and Address Organization Details Recorded Time 907206 iodine medicatio n itching moderate high 03/08/2022 5933 [facility] Pat rodriguez, [place] - [facility] 09:48:06 679936 codeine medicatio n Not available Not available Not available 03/07/2025 2670 [facility] Not Available [employer] - prod 13:28:49 826537 Betadine medicatio n Not available Not available Not available 03/07/202577768 0 [facility] Not Available [employer] - prod 13:28:49 Medications Name [...] Updated DateTime 5 162.56 cm 29.4 kg/m2 24201.3 g 68 /min 97.6 [degF] 98 % 18 /min 0 120/78 mm[Hg] Pat Acharya [place] - [facility] 5 13:47:39 Social History Question Answer Notes LastModified by Organizat ion Details LastModified Time Tobacco Smoking Status Never Smoker Pat Marck rodriguez, [place] - [facility] 03/08/2022 09:51:17 Do [...] Or The Highest Degree You Have Received? [id number] Information not available 03/14/2023 Have There Been Any Changes To Your Family Or Social Situation? No Information no t available 06/14/2022 What Is The Fluoride Status Of Your Home? Fluoridated Information not available 06/14/2022 Have You Recently Or Are You Planning To Travel To An Area With Zika Virus? No Information not available 06/14/2022 Do You Have A Medical Power Of Molder Feeder? No Information not available 06/14/2022 What Was The Date Of Your Most Recent Tobacco Screening? 09/10/2024 [email or web address] Information not available 09/10/2024 What Is Your [...] anxious, or unable to sleep at night)? [id number] Information not available 12/20/2022 Do you have [...] quadrivalent, PF 2 completed Jackie Gonzales null, [facility] 02/24/2022 16:47:05 Tdap 3 completed Kerri Gonzalez, CLINICAL PROJECT MANAGER [address], [address], [facility] - [facility] 06/14/2022 10:11:22 Influenza, high-dose, quadrivalent, PF 3 completed Kerri Gonzalez, CLINICAL PROJECT MANAGER [address], [place], [address], [facility] - [facility] 02/06/2023 11:16:51 Influenza, high-dose, trivalent, PF 4 completed Pat Acharya [facility] 03/18/2024 15:11:59 Pneumococcal conjugate PCV20, polysaccharide [id number] conjugate, adjuvant, PF 5 completed Pat Acharya null, [facility] 01/27/2025 16:55:26 Influenza, high-dose, trivalent, PF 5 completed Jackie Stears null, [place] - [facility] 02/27/2025 11:03:39 Influenza, split virus, trivalent, PF 2 completed Jackie Stears null[place] - [facility] 02/24/2022 10:49:36 Tdap 7 completed Jackie Ste[place] null[place] - [facility] 02/24/2022 10:49:36 Influenza, split virus, quadrivalent, PF 1 completed Jackie Ste[place] - [facility] 02/24/2022 10:49:36 Tdap 7 completed Jackie Ste[place] - [facility] 02/24/2022 10:49:36 VZIG 2 completed Jackie Stears null, [place] - [facility] 02/24/2022 10:49:36 COVID-19, mRNA, LNP-S, PF, 100 mcg/0.5mL dose or 50 mcg/0.25mL dose 1 completed Jackie Stears null, [facility] 02/24/2022 10:49:36 pneumococcal polysaccharide PPV23 5 completed Jackie Stears null, [place] - [facility] 02/24/2022 10:49:36 Pneumococcal conjugate PCV 13 6 completed Jackie Stears null, [facility] 02/24/2022 10:49:36 COVID-19, mRNA, LNP-S, PF, 100 mcg/0.5mL dose or 50 mcg/0.25mL dose 1 completed Jackie Stears null, [place] - [facility] 02/24/2022 10:49:36 Influenza, MDCK, quadrivalent, PF 8 completed Jackie Ste[place] null[place] - [facility] 02/24/2022 10:49:36 Pneumococcal conjugate PCV 13 9 completed Jackie Stears null, [place] - [facility] 02/24/2022 10:49:36 Past Encounters Encounter ID Performer Location Encounter Start Date Encounter Closed Date Diagnosis/Indication Diagnosis SNOMED-CT Code Diagnosis ICD10 Code Diagnosis IMO Codes Diagnosis Note [id number] Eugonda Fryman, CLINICAL PROJECT MANAGER [address] [address] 02/27/2025 10:54:44 02/27/2025 11:03:31 Influenza vaccine needed 7812826312 106 Z23 [id number] Kerri NavarroRON barron [address] [address] 03/07/2025 13:23:22 03/07/2025 14:30:35 Dysuria 62001076 R30.0 69774 Bronchitis 55349601 J40 08877 steroidsbe nzonatate as neededif worsen or no improvemen t return Acute urin nani tract infection 829210994 N39.0 antibiotic s as orderedcul tureincrea se [...] (MEDICARE REPLACEMENT/A DVANTAGE - PPO) Deanna Joshi [id number] Deanna Joshi Notes Date Note Type Note Provider Name and Address Organization Details Recorded Time 03/07/2025 text/html ROS as noted in the HPI 75 yr old presents for a possible uti, has some burning with urination. Also thinks she may have bronchitis because she [place]. coughing thick mucus. Kerri Gonzalez, RON [address], [place], [address], [place] - [facility] 03/07/2025 15:03:46 OBGyn Episode No OBEpisode recorded.
--- OUTSIDE RECORDS SUMMARY | 2025-03-17 11:07 | XMS_ITS | Data Portability ---
Author Organization [facility]YNEC[facility],, Main Office Address [address] [place] [address] Assessment Encounter Date Assessment Date Assessment LastModified by Organization Details LastModified Time 01/02/2024 01/02/2024 Annual gynecological exam performed. Patient will come back in a year unless there are new symptoms. jamison Not available 01/02/2024 09:37:13 Plan of Treatment Reminders Order Date Submit Date Provider Last Modified By Organization Details Last Modified Time Details Appointments None recorded. Lab urinalysi s, dipstick 2023 024 KAMILA Main Office, [address], [place], [address], 5 05:01:50 urinalysi s, dipstick 2023 024 KAMILA Main Office, [address], [place], [address], 4 12:03:13 urinalysi s, dipstick 2022 023 brian Main Office, [address], [place], [address], 3 21:53:21 urinalysi s, dipstick 2021 022 brian Main Office, [address], [place], [address], 3 18:14:59 urinalysi s, dipstick 2020 021 gveloudis Main Office, [address], [place], [address], 15:11:38 Referral None recorded. Procedures None recorded. Surgeries None recorded. Imaging None recorded. Medication Orders Premarin 0.625 mg/gram vaginal cream 2023 024 EDDY [facility], [address] [place], [address], 10:38:52 Patient TargetsNo targets recorded. Patient Instructions Encounter Date Encounter Id Patient Instructions Last Modified By Organization Details Last Modified Time 03/22/2021 [id number] uterine fibroids : care instructions [email or web address] Not available 03/22/2021 15:11:38 04/06/2022 [id number] back care and preventing injuries: care instructions [email or web address] Not available 04/25/2022 18:14:59 getting back to normal after low back pain: care instructions gveloudis Not available 04/25/2022 18:14:59 learning about relief for back pain gveloudis Not available 04/25/2022 18:14:59 uterine fibroids : care instructions gveloudis Not available 04/25/2022 18:14:59 Discussed result s from ultrasound, questions answered and addressed. All areas reviewed. [email or web address] Not available 04/25/2022 18:14:10 05/03/2022 [id number] Lengthy discussion, recommended second opinion from breast center. Reviewed medical records from outside hospital gveloudis Not available 05/03/2022 21:53:09 01/02/2024 [id number] discussed hrt, annual mammorgram, monitoring fibroid Failure to follow up discussed gveloudis Not available 02/10/2024 20:09:19 03/12/2024 [id number] uterine fibroids : care instructions gveloudis Not available 04/14/2024 20:29:52 Reason for Referral None Reported. Results Created Date Observation Date Name Description Value Unit Range Abnormal Flag Note LastModifiedBy Organization Detail LastModifiedTime 03/04/20 21 03/08/2021 PAP TEST THIN PREP Pap test thin prep NEGATI VE FOR INTRAE PITHEL IAL LESION OR MALIGN DESIRAE normal ACCES RUFUS #: 21-PS [id number] Sourc e: Cervi meri/E ndoce rvica l LMP: breast trimmer Date Taken : 03/04 Speci men Type: [...] which chastity ts the lab in the formerly [facility] of ThinP rep Pap Test slide s. Follo wing imagi ng, the slide was revie wed by a Cytot echno logis t and/o r Patho logis t. End of Repor t Techn ical servi tati provi ded by [facility] [employer] Patho logis [employer], [employer], d/b/a PathAnuradha hernandez, [address] [place] [address] Cornell Powell MD, Labor atory Direc tor. Case revie wed and diagn osis rende red at [facility] iated Patho logis [employer], [employer], d/b/a Mason hernandez, [address] [place] [address] Cornell Powell MD, Labor atory Direc tor. CONFI DENTI AL Not Available [facility] ([facility]) [address], [place], [address], 03/08/2021 13:47:58 03/04/20 21 03/04/2021 urina lysis , dipst ick Leukocytes - Not Available Main Of fice [address], [place], [address], 03/04/2021 14:56:27 03/04/20 21 03/04/2021 urina lysis , dipst ick Nitrite negati ve Not Available Main Office [address], [place], [address], 03/04/2021 14:56:27 03/04/20 21 03/04/2021 urina lysis , dipst ick Urobilinogen - Not Available Main Office [address], [place], [address], 03/04/2021 14:56:27 03/04/20 21 03/04/2021 urina lysis , dipst ick Protein - Not Available Main Offic e [address], [place], [address], 03/04/2021 14:56:27 03/04/20 21 03/04/2021 urina lysis , dipst ick pH 5.0 Not Available Main Offic e [address], [place], [address], 03/04/2021 14:56:27 03/04/20 21 03/04/2021 urina lysis , dipst ick Blood - Not Available Main Offic e [address], [place], [address], 03/04/2021 14:56:27 03/04/20 21 03/04/2021 urina lysis , dipst ick Specific [place] 1.030 Not Available Main O ffice [address], [place], [address], 03/04/2021 14:56:27 03/04/20 21 03/04/2021 urina lysis , dipst ick Ketone trace Not Available Main Offic e [address], [place], [address], 03/04/2021 14:56:27 03/04/20 21 03/04/2021 urina lysis , dipst ick Bilirubin - Not Available Main Off ice [address], [place], [address], 03/04/2021 14:56:27 03/04/20 21 03/04/2021 urina lysis , dipst ick Glucose - Not Available Main Offic e [address], [place], [address], 03/04/2021 14:56:27 03/04/20 21 03/04/2021 urina lysis , dipst ick Appearance - Not Available Main Of fice [address], [place], [address], 03/04/2021 14:56:27 03/04/20 21 03/04/2021 urina lysis , dipst ick Color - Not Available Main Offic e [address], [place], [address], 03/04/2021 14:56:27 03/22/20 21 03/22/2021 urina lysis , dipst ick Leukocytes - Not Available Main Of fice [address], [place], [address], 03/22/2021 14:17:38 03/22/20 21 03/22/2021 urina lysis , dipst ick Nitrite negati ve Not Available Main Office [address], [place], [address], 03/22/2021 14:17:38 03/22/20 21 03/22/2021 urina lysis , dipst ick Urobilinogen - Not Available Main Office [address], [place], [address], 03/22/2021 14:17:38 03/22/20 21 03/22/2021 urina lysis , dipst ick Protein - Not Available Main Offic e [address], [place], [address], 03/22/2021 14:17:38 03/22/20 21 03/22/2021 urina lysis , dipst ick pH 7.5 Not Available Main Offic e [address], [place], [address], 03/22/2021 14:17:38 03/22/20 21 03/22/2021 urina lysis , dipst ick Blood - Not Available Main Offic e [address], [place], [address], 03/22/2021 14:17:38 03/22/20 21 03/22/2021 urina lysis , dipst ick Specific [place] 1.000 Not Available Main O ffice [address], [place], [address], 03/22/2021 14:17:38 03/22/20 21 03/22/2021 urina lysis , dipst ick Ketone - Not Available Main Offic e [address], [place], [address], 03/22/2021 14:17:38 03/22/20 21 03/22/2021 urina lysis , dipst ick Bilirubin - Not Available Main Off ice [address], [place], [address], 03/22/2021 14:17:38 03/22/20 21 03/22/2021 urina lysis , dipst ick Glucose - Not Available Main Offic e [address], [place], [address], 03/22/2021 14:17:38 03/22/20 21 03/22/2021 urina lysis , dipst ick Appearance - Not Available Main Of fice [address], [place], [address], 03/22/2021 14:17:38 03/22/20 21 03/22/2021 urina lysis , dipst ick Color - Not Available Main Offic e [address], [place], [address], 03/22/2021 14:17:38 04/06/20 22 04/06/2022 urina lysis , dipst ick Leukocytes trace Not Available Main Of fice [address], [place], [address], 04/06/2022 14:43:51 04/06/20 22 04/06/2022 urina lysis , dipst ick Nitrite negati ve Not Available Main Office [address], [place], [address], 04/06/2022 14:43:51 04/06/20 22 04/06/2022 urina lysis , dipst ick Urobilinogen - Not Available Main Office [address], [place], [address], 04/06/2022 14:43:51 04/06/20 22 04/06/2022 urina lysis , dipst ick Protein - Not Available Main Offic e [address], [place], [address], 04/06/2022 14:43:51 04/06/20 22 04/06/2022 urina lysis , dipst ick pH 6.0 Not Available Main Offic e [address], [place], [address], 04/06/2022 14:43:51 04/06/20 22 04/06/2022 urina lysis , dipst ick Blood - Not Available Main Offic e [address], [place], [address], 04/06/2022 14:43:51 04/06/20 22 04/06/2022 urina lysis , dipst ick Specific [place] 1.005 Not Available Main O ffice [address], [place], [address], 04/06/2022 14:43:51 04/06/20 22 04/06/2022 urina lysis , dipst ick Ketone - Not Available Main Offic e [address], [place], [address], 04/06/2022 14:43:51 04/06/20 22 04/06/2022 urina lysis , dipst ick Bilirubin - Not Available Main Off ice [address], [place], [address], 04/06/2022 14:43:51 04/06/20 22 04/06/2022 urina lysis , dipst ick Glucose - Not Available Main Offic e [address], [place], [address], 04/06/2022 14:43:51 05/03/19 23 05/03/2022 urina lysis , dipst ick Leukocytes - Not Available Main Of fice [address], [place], [address], 05/03/2022 14:07:14 05/03/19 23 05/03/2022 urina lysis , dipst ick Nitrite negati ve Not Available Main Office [address], [place], [address], 05/03/2022 14:07:14 05/03/19 23 05/03/2022 urina lysis , dipst ick Urobilinogen - Not Available Main Office [address], [place], [address], 05/03/2022 14:07:14 05/03/19 23 05/03/2022 urina lysis , dipst ick Protein - Not Available Main Offic e [address], [place], [address], 05/03/2022 14:07:14 05/03/19 23 05/03/2022 urina lysis , dipst ick pH 6.0 Not Available Main Offic e [address], [place], [address], 05/03/2022 14:07:14 05/03/19 23 05/03/2022 urina lysis , dipst ick Blood - Not Available Main Offic e [address], [place], [address], 05/03/2022 14:07:14 05/03/1905/03/2022 urina lysis , dipst ick Specific [place] 1.005 Not Available Main O ffice [address], [place], [address], 05/03/2022 14:07:14 05/03/19 23 05/03/2022 urina lysis , dipst ick Ketone - Not Available Main Offic e [address], [place], [address], 05/03/2022 14:07:14 05/03/1905/03/2022 urina lysis , dipst ick Bilirubin - Not Available Main Off ice [address], [place], [address], 05/03/2022 14:07:14 05/03/1905/03/2022 urina lysis , dipst ick Glucose - Not Available Main Offic e [address], [place], [address], 05/03/2022 14:07:14 01/02/20 24 01/04/2024 PAP TEST THIN PREP Pap test thin prep NEGATI VE FOR INTRAE PITHEL IAL LESION OR MALIGN DESIRAE normal ACCES RUFUS #: 24-PS [id number] Sourc e: Cervi meri/E ndoce rvica l LMP: breast trimmer Date Taken : 01/01 Speci men Type: ThinP rep Vial Date Repor denise: 2023 Clini meri Data: Last Pap: wnl (1110 2020) Cytot ech: Brandt dixon, CT( CP) [...] which chastity ts the lab in the formerly [facility] of ThinP rep Pap Test slide s. Follo wing imagi ng, the slide was revie wed by a Cytot echno logis t and/o r Patho logis t. End of Repor t Techn ical servi tati provi ded by [facility] [employer] Patho logis [employer] [facility], d/b/a Path rou, [facility] [place] [address] Francoise vazquez MD, Labor atory Dire tor. Case revie wed and diagn osis rende red at [facility] [employer] Patho logis [employer], [facility], d/b/a PathG rou, [address] [place] [address] Francoise vazquez MD, Labor ator Dire tor. CONFI DENTI AL Not Available [facility] ([facility]) [address], [place], [address], 01/04/2024 08:56:28 01/02/2001/02/2024 urina lysis , dipst ick Leukocytes - Not Available Main Of fice [address], [place], [address], 01/02/2024 09:39:26 01/02/20 24 01/02/2024 urina lysis , dipst ick Nitrite negati ve Not Available Main Office [address], [place], [address], 01/02/2024 09:39:26 01/02/20 24 01/02/2024 urina lysis , dipst ick Urobilinogen - Not Available Main Office [address], [place], [address], 01/02/2024 09:39:26 01/02/20 24 01/02/2024 urina lysis , dipst ick Protein - Not Available Main Offic e [address], [place], [address], 01/02/2024 09:39:26 01/02/2001/02/2024 urina lysis , dipst ick pH 6.0 Not Available Main Offic e [address], [place], [address], 01/02/2024 09:39:26 01/02/20 24 01/02/2024 urina lysis , dipst ick Blood - Not Available Main Offic e [address], [place], [address], 01/02/2024 09:39:26 01/02/20 24 01/02/2024 urina lysis , dipst ick Specific [place] 1.05 Not Available Main O ffice [address], [place], [address], 01/02/2024 09:39:26 01/02/2001/02/2024 urina lysis , dipst ick Ketone - Not Available Main Offic e [address], [place], [address], 01/02/2024 09:39:26 01/02/20 24 01/02/2024 urina lysis , dipst ick Bilirubin - Not Available Main Off ice [address], [place], [address], 01/02/2024 09:39:26 01/04/20 24 01/02/2024 imagi ng/di agnos tic resul t No observ ation record ed. [address], [place], [address], 04/14/2024 20:29:07 03/12/20 24 03/12/2024 imagi ng/di agnos tic resul t No observ ation record ed. brian Wanda [address], [place], [address], 04/14/2024 20:29:07 03/12/20 24 03/12/2024 imagi ng/di agnos tic resul t No observ ation record ed. moisesgilda Wanda [address], [place], [address], 04/14/2024 20:29:07 01/25/20 25 01/22/2025 imagi ng/di agnos tic resul t No observ ation record ed. [facility] [address] [facility], [address], [place], [address], 01/24/2025 16:27:59 Result Notes None recorded. Procedures Surgical History Date Name Laterality Status Provider Name and Address Organization Details Recorded Time 01/02/20 24 Date of Last Pap Smear completed Miranda Aguilar [facility], 01/02/2024 09:38:15 07/20/19 24 Date of Last Mammogram completed [address], [place], [address], [facility], 01/03/2024 15:46:21 12/26/19 19 Most Recent Bone Density completed [address], [place], [address], [facility], 03/04/2021 15:12:45 11/23/19 17 Pelvic Transvaginal Non-OB completed TILA Antonio [address], [place], [address], [place] [facility], 11/24/2016 14:40:35 Imaging Results None recorded. Procedure Notes None [...] Available Not Available No t Available prednisone 5 mg tablet TAKE 1 [...] Not Available ciprofloxac in 500 mg tablet TAKE (1) TABLET BY MOUTH TWICE A DAY. active Not Available Not Available No t Available sulfamethox azole 800 mg-trimetho prim 160 [...] Not Available Not Available No t Available Catapres-TT S-1 0.1 mg/24 hr transdermal [...] Not Available No t Available hydroxyzine HCl 25 mg tablet 07/16 completed Not Available Not Available Not Available ergocalcife rol (vitamin D2) 1,250 mcg (50,000 unit) capsule TAKE 1 CAPSULE BY MOUTH ONCE A WEEK. active Not Available Not Available No t Available Transderm-S copy supervisor 1 mg over 3 days transdermal patch 07/16 completed Not Available Not Available Not Available polyethylen e glycol 3350 17 gram/dose oral powder 07/16 completed Not Available Not Available Not Available levofloxaci n 500 mg tablet TAKE 1 TABLET BY MOUTH ONCE A DAY FOR 5 DAYS. active Not Available Not Available No t Available levofloxaci n 750 mg tablet TAKE [...] Available Not Available albuterol sulfate HFA 90 mcg/actuati on [...] Available Not Available Vitals Date Recorded Body weight Heart rate Body temperature Systolic And Diastolic Provider Name and Address Organization Details Last Updated DateTime 05/03/2022 99566.26 g 74 /min 96.7 [degF] 137/79 mm[Hg] [facility], 05/03/2022 14:06:40 Date Recorded Body height Body mass index (BMI) Body weight Heart rate Body temperature Systolic And Diastolic Provider Name and Address Organization Details Last Updated DateTime 4 162.56 cm 30.6 kg/m2 08054.4 4 g 63 /min 96.9 [degF] 133/72 mm[Hg] [facility] AND [facility], 4 09:37:47 Date Recorded Body height Body mass index (BMI) Body weight Heart rate Body temperature Systolic And Diastolic Provider Name and Address Organization Details Last Updated DateTime 4 162.56 cm 28.7 kg/m2 97815.9 3 g 65 /min 97 [degF] 120/63 mm[Hg] [facility]ERT[facility] AND [facility], 4 09:48:36 Date Recorded Body height Body mass index (BMI) Body weight Respiratory rate Heart rate Body temperature Systolic And Diastolic Provider Name and Address Organization Details Last Updated DateTime 1 162.56 cm 30.4 kg/m2 35034.8 5 g 16 /min 80 /min 97.8 [degF] 149/70 mm[Hg] Carrieyang De La Rosa [facility], 1 14:17:21 Date Recorded Body weight Heart rate Body temperature Systolic And Diastolic Provider Name and Address Organization Details Last Updated DateTime 04/06/2022 31763.85 g 65 /min 96.6 [degF] 149/79 mm[Hg] [facility], 04/06/2022 14:43:22 Social History Question Answer Notes LastModified by Organizat ion Details LastModified Time Tobacco Smoking Status Never Smoker Not Available [employer] 02/18/2020 03:20:23 Do You Have An Advance Directive? No [id number] Information n ot available 02/18/2020 Are You Currently Sexually Active With Anyone Who Has Traveled (within The Last 12 Weeks) To A Zika-affected Area? No Information not available 03/04/2021 Are You Blind Or Do You Have Difficulty Seeing? No [id number] Information n ot available 02/18/2020 What Is Your Level Of Caffeine Consumption? Moderate [id number] Information not available 02/18/2020 In The 14 [...] Yes Information not available 03/04/2021 Are You Deaf Or Do You Have Serious Difficulty Hearing? No [id number] Information not available 02/18/2020 What Type Of Diet Are You Following? REGULAR [id number] Information n ot available 02/18/2020 Have You Processed Blood Or Body Fluids From An Ebola Virus Disease Patient Without Appropriate PPE? No Information not available 03/04/2021 Do You Reside In Or Have You Traveled To An Area Where Ebola Virus Transmission Is Active? No Information not available 03/04/2021 Education 2 Year College [email or web address] Information not available 11/22/2016 Are There Any Guns Present In Your Home? Yes [id number] Information not available 02/18/2020 Hard Of Hearing Or Deaf In One Or Both Ears? No [email or web address] Information not available 11/22/2016 Have You Recently Or Are You Planning To Travel To An Area With Zika Virus? No Information not available 03/04/2021 Legally Blind In One Or Both Eyes? No [email or web address] Information no t available 11/22/2016 Live Alone Or With Others? With Others [email or web address] Information not available 11/22/2016 What Was The Date Of Your Most Recent Tobacco Screening? 08/13/2018 [id number] Information not available 02/18/2020 How Many Children Do You Have? 2 [id number] Information not available 02/18/2020 Performs Monthly Self-breast Exam? No [email or web address] Information no t available 11/22/2016 Seat Belts Used Routinely Yes [email or web address] Information not available 11/22/2016 Are You Sexually Active? No [id number] Information not available 02/18/2020 Smoke Alarm In Home Yes [email or web address] Information not available 11/22/2016 General Stress Level Low [email or web address] Information not available 11/22/2016 Do You Use Sunscreen Routinely? Yes [id number] Information not available 02/18/2020 Do You Have Difficulty Walking Or Climbing Stairs? No [id number] Information not available 02/18/2020 Sex: Unknown Functional Status Question Answer Note LastModified by Organizat ion Details LastModified Time What is your level of alcohol consumption? None [id number] Information not available 02/18/2020 Are you currently employed? Yes [id number] Information not available 02/18/2020 Do you have transportation difficulties? No Information not available 03/04/2021 Are you able to walk independently without assistance or assistive devices? YESWOREST [id number] Information not available 02/18/2020 Do you have difficulty doing errands alone? No [id number] Information not available 02/18/2020 Are you able to care for yourself independently? 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 No [id number] Information not available 02/18/2020 What is your exercise level? Heavy [id number] Information not available 02/18/2020 Mental Status Question Answer Note LastModified by Organization D etails LastModified Time Do you have difficulty concentrating, remembering or making decisions? No [id number] Information no t available 02/18/2020 Family History Relationship Description Onset Age of this Age Resolved Age Notes LastModified by Organization Details LastModified Time Mother Diabetes mellitus [email or web address] Not available 04/2016 14:03:19 Mother Congestive heart failure [email or web address] Not available 04/2016 14:03:28 Father Leukemia [email or web address] Not availa ble 11/22/2016 14:03:40 Medical History [...] Infertility N Mental Disorder N Cancer N Stroke N Varicosities N Neurologic/Epilepsy N Fibromyalgia N Headaches N Kidney Disease N Heart Problems N [...] ICD10 Code Diagnosis IMO Codes Diagnosis Note 1153 TILA Antonio Main Office [address] [place] [address] 11/22/2016 13:28:19 11/22/2016 15:19:15 Gynecologic examination 14195271 Z01.411 Atrophic vaginitis 38190 000 N95.2 Uterine leiomyoma 118199 05 D25.9 u/s done in office Screening mammography 24 994906 Z12.31 1155 Guevara Wang DO Main Office [address] [place] [address] 11/22/2016 13:37:57 11/22/2016 16:00:21 Uterine leiomyoma 75603202 D25.9 Active or passive immunization 548654668 Z23 Screening for cardiovascular system disease 087366016 Z13.6 Screening for malignant neoplasm of colon 768994450 Z12.11 Screening for osteoporosis 153554173 Z13.820 Screening mammography 24 418100 Z12.31 Gynecologi c examination 47873143 Z01.411 01044 Guevara Wang DO Main Office [address] [place] [address] 07/16/2018 14:30:31 07/16/2018 15:50:49 Intramural leiomyoma of uterus 41807653 D25.1 Genital li martins sclerosus 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 Menopausal syndrome 1237 31338 N95.1 Night sweats 32549215 R6 1 Essential hypertension 32262289 I10 Pain in pelvis 33680711 R10.2 07288 Guevara Wang DO Main Office [address] [place] [address] 08/13/2018 14:39:54 08/13/2018 15:23:00 Renewal of prescription 110059870 Z76.0 Essential hypertension 37145612 I10 Menopausal syndrome 1237 23055 N95.8 Urinary tr act infectious disease 88038989 N30.90 f/u from pcp Vitamin deficiency 26834 002 E56.8 02900 Guevara Wang DO Main Office [address] [place] [address] 11/29/2018 15:42:07 11/29/2018 16:56:33 Gynecologic examination 94900270 Z01.411 Menopausal symptom 52833 002 N95.1 Renewal of prescription 377587858 Z76.0 Essential hypertension 35568146 I10 Vitamin deficiency 85467 002 E56.8 Screening for malignant neoplasm of colon 681627639 Z12.11 Guevara Wang DO Main Office [address] [place] [place] [address] 08/22/2019 11:43:08 08/22/2019 12:57:25 Benign essential hypertension [id number] I10 [id number] Guevara Wang DO Main Office [address] [place] [address] [place] [address] 03/04/2021 14:18:18 03/04/2021 15:43:29 Gynecologic examination [id number] Z01.411 pap Uterine leiomyoma 414292 05 D25.9 no symptoms this year. u/s to see if shrinking Screening for mental disorders [id number] Z13.89 Menopausal syndrome 1237 41494 N95.8 [id number] Guevara Wang DO Main Office [address] [place] [address] 03/22/2021 14:02:29 03/22/2021 15:05:19 Menopausal syndrome 435383066 N95.1 Intramural leiomyoma of uterus 36328769 D25.1 Pain in pelvis 87765795 R10.2 22602 Guevara Wang DO Main Office [address] [place] [address] 04/06/2022 14:17:58 04/06/2022 15:11:59 Menopausal syndrome 328831769 N95.1 Intramural leiomyoma of uterus 73131924 D25.1 Low back pain 516536119 M54.50 [id number] Guevara Wang DO Main Office [address] [place] [address] 05/03/2022 14:01:18 05/03/2022 14:43:59 Abnormal findings on diagnostic imaging of breast 614788424 R92.8 Menopausal syndrome 1237 78014 N95.1 Microcalci fications of the breast 61336225 R92.0 06609 Guevara Wang DO Main Office [address] [place] [address] 01/02/2024 09:24:43 01/02/2024 10:32:30 Renewal of prescription 571640245 Z76.0 Gynecologi c examination 71638360 Z01.411 pap. has repeat mammogram scheduled today Human augusta lloma virus screening 003932087 Z11.51 [id number] Guevara Wang DO Main Office [address] [place] [address] 03/12/2024 09:37:30 03/12/2024 11:16:48 Intramural leiomyoma of uterus 45565586 D25.1 Menopausal syndrome 1237 54277 N95.1 Health Concerns Section Related Observation LastModified by Organization Detai ls LastModified Time None Recorded Concern Status LastModified by Organization Details LastModified Time None Recorded Advance Directives Directive N: Payers Insurance Date Sequence Insurance Name Policy Number Policy Wright Covered Member ID Wright Member ID Guarantor Name 01/05/2025 1 [employer] (MEDICARE REPLACEMENT/A DVANTAGE - PPO) Deanna E Adi [id number] Deanna E Adi 01/02/2024 2 [employer] (MEDICARE REPLACEMENT/A DVANTAGE - PPO) Deanna E Adi [id number] Deanna E Adi Notes Date Note Type Note Provider Name and Address Organization Details Recorded Time 1 text/html ROS as noted in the HPI Patient presents for Guevara Wang DO [address], [place], [address], [facility], 03/22/2021 15:11:45 2 text/html MenopauseReported by PatientMenopauseFor onset/timing, patient reportsevening. For quality, patient reportsnight sweats. For severity, patient reportsmoderate. For duration, patient reportsintermittent. For context, patient reportsno menses for over 1 year. For alleviating factors, patient reportsnone. For aggravating factors, patient reportspoor sleep. 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 For vaginal bleeding, patient reportshistory of menopause having occurredandno history of post menopausal bleeding. For urinary symptoms, patient reportsno hematuria,no incontinence,no nocturia, andno urinary frequency. For vulva, patient reportsno genital lesionandno vulvar atrophy. For vagina, patient reportsnormal vaginal dischargeandno vaginal atrophy.Breast symptomsFor breast, patient reportsno breast lump,no nipple discharge, andno breast pain.Psychological symptomsFor sexual complaints, patient reportsno sexual complaints. For psychological symptoms, patient reportsno depressionandno anxiety.Preventative measuresFor preventive measures, patient reportsmammogram performed within the past yearandhistory of recent colonoscopy. DO [address], [place], [address], [facility], 02/10/2024 20:09:43 4 text/html having back pain , planning on surgery DO [address], [place], [address], [facility], 04/14/2024 20:29:55 OBGyn Episode No OBEpisode recorded.
--- OUTSIDE RECORDS SUMMARY | 2025-03-17 11:07 | XMS_ITS | Referral Summary ---
Author Organization [employer] ([place], [place], [place], [place], [place]) Address [address] [place] [address] Care Team Providers Care Bookkeeping Teacher Name Role Phone Yo Phan MD Primary Care Provider [phone] Allergies Active Allergy Reactions Criticality Noted Date [...] 05/31/2022 Localized osteoarthritis of right knee 3 Social History Tobacco Use Types Packs/Day Years [...] Luis Eduardo rded Speak language other than [place] at home Not on file 05/05/2023 Want [...] 03/24/2023 11:16 AM EST Plan of Treatment Not on file Insurance [facility] MEDICARE PPO Care Teams Bookkeeping Teacher Relationship Specialty Start Date End Date Yo Phan MD [address] [place] [address] PCP - General Family Medicine 05/27/22
== END 2025-03-15 23:59 ==
LOC: LAB.DROPOF 03-17 10:43
PROVIDERS: PCP Nurse Practitioner Family; Visit Provider Nurse Practitioner Family
DX: N39.0 Urinary tract infection, site not specified (principal)
CPT/HCPCS: 87086; 87088